=== PATIENT | female | born 1965 | race Caucasian/White ===

== ENCOUNTER 2017-08-01 07:31 | Day surgery (SDC) | payer OTHER ==
[2017-08-01] VITALS (7 sets, daily range): BP systolic 102–142; BP diastolic 52–86; PULSE 62–72; TEMP 36.3–36.6; O2SAT 93–98; Ht 157.5 cm; Wt 64.5 kg
[~2017-08-01] VITALS: Ht 157.5 cm; Wt 64.5 kg
[~2017-08-01 07:31] MED LIST: ASCO1CHW17 PO; CETICHW4 PO; FLUT230A INH; IPRASOL4 INH; LEVAAER2 INH; PRED20TA PO
[2017-08-01] MEDS ORDERED: BECL80AE6 INH (07:55)
--- NOTE | 2017-08-01 08:25 | History & Physical Bridge Note ---
H&P Re-Evaluation Bridge Note: I have examined the patient, reviewed the History & Physical and in the interval since the performance of the History & Physical I have noted the following changes of clinical significance: No changes noted
--- NOTE | 2017-08-01 08:26 | Pre Sedation Assessment ---
Pre Sedation Assessment General Date of Sedation: August 01, 2017. Vital Signs Past 12 Hours Date Time Temp Pulse Resp B/P (MAP) Pulse Ox O2 Delivery O2 Flow Rate FiO2 08/01/17 07:56 36.6 65 20 134/67 (89) 98 Room Air Pre-Sedation Airway Assessment Smoking Status: Former Smoker Mallampati Classification: Class II ASA Classification: Class II NPO Status Date of Last Intake of Fluids: July 31, 2017 Time of Last Intake of Fluids: 2300 Date of Last Intake of Solids: July 31, 2017 Time of Last Intake of Solids: 1600 Procedure Planning Contraindications for Sedation: None Current Medications Reviewed: Yes Notes The planned sedation has been discussed with the patient. Informed Consent was obtained. I have identified the patient, determined the appropriateness of sedation and have assessed the patient immediately prior to the procedure. All medicine(s) and interventions are by my order.
[2017-08-01] MEDS ORDERED: DEXTROSE 5% 1000ML 1,000 ML IV SCH (09:00)
[2017-08-01] MEDS ORDERED: NURSING VERBAL MED ORDER ONE (09:00)
[2017-08-01] MEDS ORDERED: OXYMETAZOLINE HCL 0.05% NA SPR 15 ML BTL ONE (09:07)
[2017-08-01] MEDS ORDERED: LIDOCAINE 4% INH SOLN 4 ML BTL INH ONE (09:07)
[2017-08-01] MEDS ORDERED: MIDAZOLAM HCL 5 MG/ML 1 ML VIAL IV ONE (09:22)
[2017-08-01] MEDS ORDERED: LIDOCAINE HCL 2% LOCAL 50ML VIAL INSTIL ONE (09:25)
[2017-08-01] MEDS ORDERED: FENTANYL CITRATE INJ 50 MCG/1 ML 2 ML VIAL IV ONE (09:28)
[2017-08-01] MEDS ORDERED: LEVALBUTEROL 1.25MG/3ML NEB INH ONE (09:29)
--- NOTE | 2017-08-01 09:35 | [facility] Operative Report ---
Operative Report Operative Date August 01, 2017. Pre-Operative Diagnosis Chronic Bronchitis Post-Operative Diagnosis Same Procedure(s) Performed FOB w BAL Surgeon Dr Payne Findings Chronic Mucopurulent Bronchitis Complication(s) None Disposition I attest to the content of the Intraoperative Record and any orders documented therein. Any exceptions are noted below.
[2017-08-01] MEDS ORDERED: METHYLPREDNISOLONE 125 MG VIAL IV ONE (09:36)
--- NOTE | 2017-08-01 09:36 | Post Sedation Assessment ---
Post Sedation Assessment General Date of Sedation August 01, 2017. Vital Signs: Vital Signs Past 12 Hours Date Time Temp Pulse Resp B/P (MAP) Pulse Ox O2 Delivery O2 Flow Rate FiO2 08/01/17 09:30 68 16 131/74 100 Oxymask 15 08/01/17 09:25 71 16 118/77 100 Oxymask 15 08/01/17 09:20 62 20 124/74 100 Oxymask 8 08/01/17 09:15 65 20 154/73 100 Oxymask 8 08/01/17 09:10 63 20 133/69 100 Oxymask 8 08/01/17 09:05 69 20 135/76 97 Room Air 08/01/17 07:56 36.6 65 20 134/67 (89) 98 Room Air Post Procedure Recovery Score Activity: (2) Moves 4 extremities * Respiration: (2) Deep breath/cough Circulation: (2) +/-20% PreAnes Value Consciousness: (1) Arouseable (by name) Oxygen Saturation: (1) O2 needed for >90% Post Anesthesia Score: 8 Discharge Sedation Level of Care: Fast Track Phase II Post Sedation Plan On clinical assessment, the patient appears to have tolerated the sedation without complications. Patient is recovering as anticipated. Patient will continue to be monitored by nursing and may be discharged when sedation discharge criteria are met per below protocol. Upon Completions of procedure and additional 15 minutes continue every 5 minute vital signs and the P.A.R. score; then discharge to a Phase I or Fast Track to Phase II per the following guidelines: * Discharge Patient to appropriate Phase II area if PAR is 8 or greater or return to pre- procedure baseline. The post - procedure orders will be as directed. * If PAR score is less than 8 or not return to pre-procedure baseline then patient will follow Phase I monitoring till PAR is reached for Phase II. The Phase I may be done in procedure room or may call to secure a Phase I area. * If naloxone or flumazenil are used for reversal, hold in Phase I for an additional 60 -120 minutes before discharge to Phase II. Please call the Sedation Physician to re-evaluate and complete post-note for discharge to Phase II area. Do NOT discharge from procedure sedation or Phase 1 until post- sedation evaluation note is complete by procedure /sedation MD Sedation Discharge Instructions to be given to the patient at discharge to home.
--- NOTE | 2017-08-01 09:38 | Discharge Instructions ---
Discharge Instructions Date of Service August 01, 2017. Admission Reason for Admission: Asthmatic Bronchitis, Shortness Of Breath Discharge Discharge Diagnosis / Problem: Chronic Mucopurulent Bronchitis Discharge Goals Goal(s): Therapeutic intervention Activity Recommendations Activity Limitations: resume your previous activity Lifting Limitations: none Exercise/Sports Limitations: none May Resume Sexual Activity: when tolerated Shower/Bathe: no limitations Driving or Machine Use: resume 1 day after discharge None . Instructions / Follow-Up Instructions / Follow-Up ACTIVITY RECOMMENDATIONS: * Rest today, resume normal activity tomorrow. * Do not drive today. SPECIAL CARE INSTRUCTIONS: * Call your physician if you experience any chest or shoulder pain, fever, coughing, spitting up blood (more than 2 teaspoons) or excessive shortness of breath. * Remove dressing from IV site (where needle was placed into the vein) after 2 hours. Apply a warm, moist compress to site if irritation occurs. Call physician if site becomes red or painful to touch. FOLLOW UP VISIT: * Keep any scheduled doctor appointments. Current Hospital Diet Patient's current hospital diet: Discharge Diet Recommended Diet: Regular Diet Fluid Restriction: None Procedures Procedures Performed: FOB w BAL Pending Studies Studies pending at discharge: no Medical Emergencies . Who to Call and When: Medical Emergencies: If at any time you feel your situation is an emergency, please call 911 immediately. . Non-Emergent Contact Non-Emergency issues call your: Breaker Unit Assembler Call Non-Emergent contact if: temperature is above 101 . . "Provider Documentation" section prepared by Raf Payne. .
--- NOTE | 2017-08-01 13:17 | OPERATIVE REPORT ---
DATE OF OPERATION: 08/01/2017 PROCEDURE: Fiberoptic bronchoscopy with bronchoalveolar lavage. INDICATIONS: Persistent chest congestion refractory to outpatient therapy. ANESTHESIA PREOPERATIVELY: None. ANESTHESIA DURING PROCEDURE: 100 mcg IV fentanyl, 5 mg IV Versed, 20 mL 2% Xylocaine spray above and below the cords, 4% viscous Xylocaine intranasally. PROCEDURE IN DETAIL: A fiberoptic bronchoscope was inserted into the left naris with minimal difficulty and passed to the level of the true vocal cords. The cords appear to approximate normally with phonation without evidence of lesions or paralysis. The area was anesthetized with 2% Xylocaine spray. The scope was then introduced. The left arytenoid cartilage showed a small whitish plaque that might have been consistent with Marixa. It was not biopsied. The cords were anesthetized with 2% Xylocaine spray and the scope was then introduced in the trachea and right and left tracheobronchial tree. Immediately seen in the subglottic and proximal tracheal area was a thick amount of mucus that was adherent to the tracheal wall and was lavaged until clear. The scope was then introduced into the right and left tracheobronchial tree. The temi was sharp. The right main stem bronchus also showed copious amount of mucoviscous secretion that was lavaged until clear. The right upper lobe, the apical posterior and anterior segments, bronchus intermedius, right middle lobe, and medial lateral segments and all basilar segments right lower lobe were found to be free of endobronchial lesions. Each lobar segment was lavaged until clear and mucus pitting with bronchial crypts and clefts were visible. The right lower lobe was lavaged with normal saline and the aspirate was sent for appropriate studies. The left tracheobronchial tree showed similar findings. The left upper lobe, lingular subdivision, and left lower lobe were each lavaged with normal saline and the aspirate was sent for appropriate studies. The same degree of inflammatory mucosal change was seen globally with mucus pitting and bronchial crypts and clefts visible throughout the left tracheobronchial tree. No brushings or biopsies were deemed necessary. The patient tolerated the procedure well although did complain of some mild chest tightness post-procedure, he was given 40 mg IV Solu-Medrol and a nebulizer treatment with Xopenex 1.25 mg and transferred to the medical treatment unit hemodynamically stable with no signs of respiratory compromise. We will await microbiological and cytologic examination of the bronchial washings. I attest to the content of the Intraoperative Record and any orders documented therein. Any exception s are noted below.
[2017-08-03 11:04] LABS: HERPES SIMPLEX VIRUS CULT NOT ISOLATED (NOT ISOLATED)
== END 2017-08-01 11:50 | disposition home or self-care (01) ==
LOC: C.ACU 07:31
PROVIDERS: ATTEND Internal Medicine Pulmonary Disease
DX: J42 Unspecified chronic bronchitis (principal); J45.909 Unspecified asthma, uncomplicated; R06.02 Shortness of breath; K21.9 Gastro-esophageal reflux disease without esophagitis; R91.1 Solitary pulmonary nodule; Z90.89 Acquired absence of other organs; Z90.710 Acquired absence of both cervix and uterus; Z98.51 Tubal ligation status; Z82.5 Family history of asthma and other chronic lower respiratory diseases; Z80.1 Family history of malignant neoplasm of trachea, bronchus and lung; Z82.49 Family history of ischemic heart disease and other diseases of the circulatory system; Z80.0 Family history of malignant neoplasm of digestive organs; Z87.891 Personal history of nicotine dependence; Z88.0 Allergy status to penicillin; Z88.5 Allergy status to narcotic agent; Z88.1 Allergy status to other antibiotic agents

== ENCOUNTER 2018-06-03 22:27 | Inpatient (IN) ==
[2018-06-04] MEDS ORDERED: ONDANSETRON INJ 2 MG/ML 2 ML VIAL IV PRN (03:42)
[2018-06-04] MEDS ORDERED: ALBUTEROL 0.5% NEB SOLN 2.5 MG/0.5 ML VIAL NEB PRN (03:42)
[2018-06-04] MEDS ORDERED: ACETAMINOPHEN 325 MG TAB PO PRN (03:42)
[2018-06-04] MEDS ORDERED: ENOXAPARIN INJ 40 MG/0.4 ML SYR SQ SCH (03:45)
--- NOTE | 2018-06-04 04:06 | History & Physical Report ---
Date of Service June 04, 2018 Assessment & Plan (1) COPD (chronic obstructive pulmonary disease): Patient with history of COPD/Asthma, presenting with what appears to be acute exacerbation. On arrival to OSH she was tachypneic, hypoxic, hypertensive, tachycardic, acute respiratory acidosis on ABG improved with BiPAP. Now improved. No respiratory distress. Adequate oxygenation on 2L -Admit to tele -Continuous pulse oximetry monitoring -Supplemental O2 and BiPAP PRN -Solumedrol 30mg IV TID -DuoNeb q 4 hours -Albuterol q 2 hours PRN -Doxycycline 100mg po BID -Flovent BID -Will start Pepcid for reflux symptoms Present on Admission?: Yes (2) Asthma: Plan as above. Patient given Magnesium at OSH (3) Acid reflux: Patient endorses symptoms consistent with acid reflux -Start Pepcid daily F/E/N - Heplock. Monitor electrolytes and replete as needed. Regular diet as tolerated Ppx - Lovenox for DVT ppx, Pepcid as above Code - Full Dispo - PCU History of Present Illness Chief Complaint: SOB Primary Care Provider: Alonso Barros Patient is a 52 C female with history of Asthma/COPD, MVP presenting with SOB. States that her symptoms began yesterday AM around 03:00, woke from sleep with acute SOB, cough and wheeze. She took a DuoNeb with minimal relief. Continued to take nebs q 2 hours. Her symptoms progressed throughout the day. She went to [facility] ER with the above complaints. On arrival she was found to be tachycardic at 133bpm, HTN at 204/108, RR of 40 saturating 77% on NRB. An ABG was obtained which revealed pH of 7.15, CO2 of 79. She was administered Ativan IV, Solumedrol 125mg, Enalapril, Magnesium x 2gm and epinephrine. She was placed on BiPAP. Repeat ABG with improvement to 7.3/53/288. She was transferred to [facility] as she follows with Pulmonary here. Patient presently feels much improved. Still with some SOB and chest tightness. Also with nausea and lightheadedness. She states that her Asthma/COPD is overall poorly controlled. She requires her rescue inhaler at least 2-3 times nightly on most nights. No history of prior intubations. Multiple exacerbations in the past. She states that she has had a lot of heartburn symptoms and epigastric fullness lately as well. Allergies Allergy/AdvReac Type Severity Reaction Status Date / Time Penicillins Allergy Severe ANAPHYLAXIS Verified 08/01/17 07:52 cephalexin AdvReac Unknown nausea Verified 08/01/17 07:52 morphine AdvReac Unknown nausea Verified 08/01/17 07:52 Home Medications Home Medications Medication Instructions Recorded Confirmed Type albuterol sulfate [ProAir HFA] 2 puff INHALATION BID PRN #0 aer 06/24/15 06/04/18 History ascorbic acid (vitamin C) [Vitamin 500 mg PO DAILY #0 06/24/15 06/04/18 History C] ipratropium-albuterol 3 ml INHALATION QID PRN #0 inh 06/24/15 06/04/18 History levalbuterol tartrate [Xopenex HFA] 2 puff INHALATION Q4 PRN #0 06/24/15 06/04/18 History prednisone 10 mg PO DAILY #19 06/24/15 06/04/18 History beclomethasone dipropionate [Qvar 1 puff INHALATION BID #0 08/01/17 06/04/18 History RediHaler] Past Med/Surg History Medical History Asthma COPD (chronic obstructive pulmonary disease) Lung nodules Mitral valve prolapse Surgical History S/P appendectomy S/P bronchoscopy S/P section S/P hysterectomy S/P sinus surgery S/P tonsillectomy Family History Other Lung cancer Social History Preferred Language: Luxembourger Communication Ability: Effective House Cleaner Supervisor Required: No Beliefs That Will Affect Care: None Current Living Situation: Spouse Other Information That Helps Us Care for You: No Feels Safe at Home: Yes Safety Concerns: Feels Safe At This Time Smoking Status: Never smoker Hx Substance Use: No Review of Systems All systems reviewed & are unremarkable except as noted in HPI & below +constipation at baseline +chest tighness Physical Exam Vital Signs (Past 24 Hours): Last Vital Signs Temp 36.8 C 06/04/18 02:52 Pulse 110 H 06/04/18 02:52 Resp 20 06/04/18 02:52 BP 109/68 06/04/18 02:52 Physical Exam: General: patient resting comfortably, NAD, non-toxic in appearance, AA&O x 4 Skin: warm, dry, intact, no rashes or lesions HEENT: NC/AT, PERRL, EOMI, anicteric sclera, conjunctiva without injection, external ear normal to inspection and nontender, nares patent, slighlty dry mucus membranes, dentition intact, no oropharyngeal lesions, neck supple, tra phani midline, no LAD, no thyromegaly, no JVD Heart: +S1/S2, regular, tachycardic at 110 bpm, soft HILARY at LSB, no r/g Lungs: diminished breath sounds bilaterally, no rales/rhonchi/wheezes Abd: +BS, soft, NT/ND, no masses/organomegaly/ascites Ext: warm, 2+ pulses in UE/LE bilaterally, no clubbing/cyanosis or edema Neuro: nonfocal, patient AA&O x 4, speech intact, no facial droop, moving all extremities on command with equal strength 5/5 Results & Data Laboratory Results Ordered Diagnostic Findings CXR ordered ECG Additional Comments: EKG ordered Code Status & VTE Plan Code Status Full VTE Prophylaxis Plan VTE Prophylaxis will be ordered: Yes Critical Care Time Critical Care Time: No (1) Asthma Asthma severity: unspecified severity Asthma persistence: persistent Asthma complication type: with acute exacerbation Qualified Code(s): J45.901 - Unspecified asthma with (acute) exacerbation (2) COPD (chronic obstructive pulmonary disease) COPD type: chronic bronchitis Chronic bronchitis type: unspecified Qualified Code(s): J42 - Unspecified chronic bronchitis
[2018-06-04 04:31] LABS: Basophils # (auto) 0.01 K/uL (0-0.2); Basophils % (auto) 0.1 %; Hematocrit (blood only) 38.2 % (37-47); Hemoglobin 12.7 g/dL (12.0-16.0); Immature Granulocytes # (auto) 0.06 K/uL (0.00-0.02); Immature Granulocytes % (auto) 0.4 %; Lymphocytes # (auto) 0.62 K/uL (1.2-3.4); Lymphocytes % (auto) 4.5 %; Mean Corpuscular Hgb Conc 33.2 g/dL (32-36); Mean Corpuscular Volume 94.6 fL (80-100); Mean Platelet Volume 8.9 fL (7.4-10.4); Monocytes # (auto) 0.24 K/uL (0.11-0.59); Monocytes % (auto) 1.8 %; Neutrophils # (auto) 12.77 K/uL (1.4-6.5); Neutrophils % (auto) 93.2 %; Platelet Count 268 K/uL (130-400); RDW Coefficient of Variation 13.8 % (11.5-14.5); RDW Standard Deviation 47.8 fL (36.4-46.3); Red Blood Count 4.04 M/uL (4.2-5.4)
[2018-06-04] MEDS: ALBUT/IPRATROP 3MG/0.5MG NEB 3 ML VIAL NEB SCH ×6 (04:45→23:12)
[2018-06-04 04:48] LABS: BUN Creatinine Ratio 25.4 (10-20); Calcium 8.7 mg/dl (8.5-10.1); Creatinine Clr Calc Pharmacy 80.5 ml/min; Est GFR (African American) 112.7; Est GFR (Non-African American) 97.2; Magnesium 2.4 mg/dl (1.8-2.4); Phosphorus 2.6 mg/dl (2.5-4.9)
[2018-06-04 04:57] LABS: Troponin I 1.18 ng/ml (0-0.045)
[2018-06-04] MEDS ORDERED: Nursing to Pharmacy Communication ONE (05:30)
[2018-06-04] MEDS: methylPREDNISolone 30 MG in SYRINGE 0 ML IV SCH ×3 (06:11→21:18)
--- NOTE | 2018-06-04 09:27 | XRay Report ---
XR chest 2V routine CLINICAL HISTORY: COPD. Shortness of breath. COMPARISON STUDY: No previous studies for comparison. FINDINGS: A subtle 8 mm opacity visualized in the left lung base on the PA film is not confirmed the lateral view. On a statistical basis this represents a summation. The heart is normal in size. There is no failure. There is no focal pulmonary consolidation. There are no pleural effusions.[ IMPRESSION: 1. No evidence of failure. No evidence of focal pulmonary consolidation 2. Nonspecific 8 mm opacity at the left lung base, likely representing a summation. A follow-up CT sc an or 3 month follow-up chest x-ray should be considered. Electronically signed by: Cody Mahan M.D. 06/04/2018 9:25 AM
[2018-06-04] MEDS: ASPIRIN 81 MG ECTAB PO SCH (09:38)
[2018-06-04] MEDS: FLUTICASONE HFA 220 MCG INHALER INH SCH ×2 (09:38→21:20)
[2018-06-04] MEDS: DOXYCYCLINE HYCLATE 100 MG CAP PO SCH ×2 (09:39→21:19)
[2018-06-04] MEDS: FAMOTIDINE 20 MG TAB PO SCH (09:40)
--- NOTE | 2018-06-04 13:31 | Hospitalist Progress Note ---
Date of Service June 04, 2018 Assessment & Plan (1) COPD (chronic obstructive pulmonary disease): (2) Asthma: (3) Acid reflux: (4) Elevated troponin: 52-year-old white female with history of COPD admitted because of acute respiratory distress possible from COPD exacerbation acute respiratory distress possible from COPD exacerbation COPD exac history of COPD/Asthma, Required BiPAP on admission Improved, Continue supplemental O2 and BiPAP PRN, Solumedrol 30mg IV TID, DuoNeb q 4 hour s, Albuterol q 2 hours PRN, Doxycycline 100mg po BID Patient follow-up with Dr. Payne, request Dr. Allen to see I agreed Obvious elevated troponin with no chest pain no EKG changes, likely demanding ischemia cardiac strain, however want to rule out acute PE, is checking d-dimer, will check a chest CT with contrast if d-dimer positive Possible GERD with acid reflux: Continue Pepcid Lovenox for DVT ppx, Pepcid as above Code - Full Subjective Generally feeling better, occasional cough, however feeling more difficulty breathing when up and walk to the restroom Denies fever chills, denies hemoptysis, denies cough pain No nausea vomiting abdominal pain diarrhea constipation Denies dysuria urgency frequency No facial droop or slurry speech or local weakness Physical Exam Vital Signs (Past 24 Hours): Last Vital Signs Temp 36.4 C L 06/04/18 11:46 Pulse 92 H 06/04/18 11:46 Resp 22 06/04/18 11:46 BP 106/64 06/04/18 11:46 Pulse Ox 95 06/04/18 11:46 Physical Exam: General: patient resting comfortably, NAD, non-toxic in appearance, AA&O x 4, speak for sentence and conversational Skin: warm, dry, intact, no rashes or lesions HEENT: NC/AT, PERRL, EOMI, anicteric sclera, conjunctiva without injection, external ear normal to inspection and nontender, nares patent, slighlty dry mucus membranes, dentition intact, no oropharyngeal lesions, neck supple, trachea midline, no LAD, no thyromegaly, no JVD Heart: +S1/S2, regular, soft HILARY at LSB, no r/g Lungs: diminished breath sounds bilaterally, occasional wheezing, bilateral lower lung significant decreased airway movement Abd: +BS, soft, NT/ND, no masses/organomegaly/ascites Ext: warm, 2+ pulses in UE/LE bilaterally, no clubbing/cyanosis or edema Neuro: nonfocal, patient AA&O x 4, speech intact, no facial droop, moving all extremities on command with equal strength 5/5 Results & Data Laboratory Results Laboratory Results - last 24 hr 06/04/18 06/04/18 06/04/18 03:59 03:59 11:07 WBC 13.70 H RBC 4.04 L Hgb 12.7 Hct 38.2 MCV 94.6 MCH 31.4 MCHC 33.2 RDW Std Deviation 47.8 H RDW Coeff of Lizeth 13.8 Plt Count 268 MPV 8.9 Immature Gran % (Auto) 0.4 Neut % (Auto) 93.2 Lymph % (Auto) 4.5 Dougherty % (Auto) 1.8 Eos % (Auto) 0.0 Baso % (Auto) 0.1 Immature Gran # (Auto) 0.06 H Neut # (Auto) 12.77 H Lymph # (Auto) 0.62 L Dougherty # (Auto) 0.24 Eos # (Auto) 0.00 Baso # (Auto) 0.01 Sodium 139 Potassium 4.0 Chloride 107 Carbon Dioxide 25 Anion Gap 7.0 BUN 18 Creatinine 0.71 Est Cr Clr Drug Dosing 80.5 Est GFR ( Amer) 112.7 Est GFR (Non-Af Amer) 97.2 BUN/Creatinine Ratio 25.4 H Glucose 124 H Calcium 8.7 Phosphorus 2.6 Magnesium 2.4 Troponin I 1.180 H* 1.120 H* NT-Pro-B Natriuret Pep 261 (1) COPD (chronic obstructive pulmonary disease) COPD type: chronic bronchitis Chronic bronchitis type: unspecified Qualified Code(s): J42 - Unspecified chronic bronchitis (2) Asthma Asthma severity: unspecified severity Asthma persistence: persistent Asthma complication type: with acute exacerbation Qualified Code(s): J45.901 - Unspecified asthma with (acute) exacerbation
[2018-06-04 13:49] LABS: D Dimer 690 ug/L FEU (0-500)
[2018-06-04] MEDS ORDERED: OPTIRAY 320 125ml IV PRN (14:37)
--- NOTE | 2018-06-04 14:51 | CT Scan Report ---
CT ANGIOGRAM OF THE CHEST CLINICAL HISTORY: Shortness of breath. Suspected pulmonary embolism. COMPARISON STUDY: August 2012 TECHNIQUE: Following the IV administration of 95 mL of [id number]-320, CT angiogram of the thorax was pe rformed from the thoracic inlet to the lung bases utilizing the pulmonary embolus protocol. Images ar e reviewed in the axial, sagittal, and coronal planes. IV contrast was administered without complicat ion. MIP imaging was performed. A dose lowering technique was utilized adhering to the principles of ALARA. CT DOSE: There are persistent hypodense hepatic lesions, statistically representing cysts. FINDINGS: No pathologically enlarged axillary mediastinal or hilar lymph nodes were visualized. There was no evidence of thoracic aortic dilatation. There is a small right lower lobe pulmonary artery filling defect, indicative of a subsegmental pulmo nary artery embolus. Several additional tiny filling defects are visualized. No pleural effusions are visualized. There are 2 pleural-based calcifications within the left lower l obe. There is no focal pulmonary consolidation. There was no evidence of focal pulmonary consolidation. IMPRESSION: Acute subsegmental right lower lobe pulmonary artery embolism Electronically signed by: Cody Mahan M.D. 06/04/2018 2:49 PM
[2018-06-04 16:18] LABS: Immunoglobulin A 93.6 mg/dl (70-400)
[2018-06-04] MEDS ORDERED: HEPARIN IV BOLUS 4,000 UNITS in SYRINGE 0 ML IV ONE (16:30)
[2018-06-04 16:51] LABS: Partial Thromboplastin Ratio 0.9; Partial Thromboplastin Time 25.1 Seconds (21.0-31.0)
[2018-06-04] MEDS: HEPARIN STANDARD DEXTROSE 25,000 UNITS/500 ML IV SCH (17:27)
[2018-06-04] MEDS ORDERED: BISACODYL 5 MG TABEC PO PRN (20:09)
[2018-06-04] MEDS ORDERED: POLYETHYLENE (MIRALAX) 17 GM PACK PO PRN (20:09)
[2018-06-04] MEDS: LACTOBACILLUS ACIDOPHILUS (FLORANEX) TAB PO SCH (21:18)
[2018-06-04] MEDS: CETIRIZINE HCL 10 MG TABLET PO SCH (21:18)
[2018-06-04] MEDS ORDERED: COUGH DROP (SUGAR FREE) LOZ 24 LOZ/1 BOX BUCCAL ONE (21:27)
[2018-06-04] MEDS ORDERED: SODIUM CHLORIDE 0.65% NA SOLN 45 ML (OCEAN) ONE (21:28)
[2018-06-05 00:30] LABS: Partial Thromboplastin Ratio 1.8
[2018-06-05 00:38] LABS: Partial Thromboplastin Time 49.9 Seconds (21.0-31.0)
--- NOTE | 2018-06-05 02:37 | Consultation Report ---
DATE OF CONSULTATION: 06/04/2018 REASON FOR CONSULTATION: Pulmonary evaluation/COPD/asthma. HISTORY OF PRESENT ILLNESS: A 52-year-old white female well known to me with a history of asthma/COPD and is followed regularly by ESTEFANÍA Marino with our [facility] at the [facility] and by Dr. Alonso Barros her primary care physician. I have seen her in the past as well and had performed bronchoscopy x2 for bronchoalveolar lavage in the past. The patient has not been doing well for the past several weeks and was treated for recurrent bout of bronchitis recently but states she never truly got over her symptoms and "she has used her wood burner for the first time this spring and wonders whether that contributed to her symptoms." She was awoken from sleep at 3 a.m. 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 She was taking a nebulizer every 2 hours. She went to the [facility] ER and states she was unresponsive and has no memory for the events for about 4 hours. She was found to be tachycardic with a rate about 133, hypertensive and markedly desaturated at 77% and was placed on 100% nonrebreather and eventually BiPAP. ABG revealed a pH of 7.15, pCO2 of 79. She was given IV Ativan, Solu-Medrol, enalapril, magnesium IV x2 grams and epinephrine and placed on BiPAP. Her numbers improved to pH 7.3, pCO2 of 53 and a pO2 of 288. She was transferred here for further evaluation and therapy. The symptoms of chest tightness and dyspnea improved. She was nauseated and lightheaded. She has not required intubation and mechanical ventilator assistance in the past. She has had a full allergy evaluation with Dr. Brink many years ago, was not felt to be a candidate for immunotherapy. Since that time, she has replaced her rugs and had them removed and has hardwood floors with area rugs. She does have 2 dogs at home. No cats and the environment can be mildly celsa. No areas of mildew or mold. Review of [employer] charting, the patient was last seen by Carlito Lau in 07/2017. He comments about a bronchoscopy done previous to that visit where she obtained some relief of symptoms. Bronchial washings grew out Marixa and that was felt not to be a pathogen. Bronchial washings grew out normal sanjiv. In 06/2015, once again normal sanjiv was cultured. No true pathogens were identified. CT angiogram going back to 2012 showed no evidence of pulmonary thromboembolic disease. A 1.7 cm lymph node was seen in the right suprahilar region, otherwise there were no suspicious nodules. She is status post appendectomy, , hysterectomy and sinus surgery along with tonsillectomy. ALLERGIES: PENICILLIN, CEPHALEXIN, AND MORPHINE. Chest x-ray on 06/04/2018 showed no evidence of failure. An 8 mm opacity left lung base may be a summation shadow was seen. EKG showed normal sinus rhythm with a heart rate of 95 without acute changes. White count today is 13,000, H and H 12 and 38. No significant peripheral eosinophilia. D-dimer was 690, BUN 25, patient has been on a ProAir inhaler, QVAR 1 puff b.i.d. She has had a nebulizer with DuoNeb solution every 4 hours as needed and also on a Xopenex HFA as needed. She is on 10 mg daily of prednisone. PFTs in 2012 revealed an FEV1/FVC ratio of 67% without a response to bronchodilator shown, significant air trapping was noted and normal diffusion capacity. Review of Carlito Lau's notation shows an infrequent office visit. She showed exacerbation and required IM Solu-Medrol in the office. In the last note I have from Dr. Brink from [facility], was patient was seen on 03/23/2012 and continued on Advair Diskus inhaler 500/50 one puff b.i.d. which she is currently on as well and doxycycline for a sinus infection. Several lab studies include alpha 1 antitrypsin, Aspergillus titers and checking for humeral antibody response were ordered. I do not have the results. She did smoke 3 packs a day for 18 years or 54 pack year smoking history, having quit in 1993. For details of past medical history, medications, refer to current and past record. PHYSICAL EXAMINATION: GENERAL: Reveals a well-developed, well-nourished white female appearing stable currently. VITAL SIGNS: Blood pressure 106/64, pulse 101 and regular, respiratory rate 18, temperature 36.4, O2 sat 97% on 3 liters. SKIN: Without lesion. HEENT: Atraumatic, normocephalic. PERRLA. LUNGS: Distant to P and A. No audible wheezes. CARDIAC: Regular rhythm. I do not appreciate a gallop. ABDOMEN: Soft, protuberant. EXTREMITIES: No pedal edema, clubbing or cyanosis. Negative Homans sign. NEUROLOGIC: No lateralizing signs. Chest x-ray shows no acute infiltrate. LABORATORY DATA: White count 13,000. No peripheral eosinophilia. EKG shows no acute changes. OVERALL ASSESSMENT: A 52-year-old with a combination of chronic obstructive pulmonary disease and asthma, became acutely short of breath, suspect from an acute asthmatic attack perhaps aggravated by the wood burner or an upper respiratory infection or other irritant/allergens that has been poorly recognized. What is clear is, patient became subacutely symptomatic and then acutely in severe respiratory distress. ABGs revealed an acute respiratory acidosis that was life threatening with a pH of 7.15. I need to review her records. I do believe she needs an allergy and immunology evaluation as an outpatient with Dr. Cee and will make those arrangements. I have advised both she and the family that her presentation was life threatening and that admittedly she cannot let things go as long and as far as they did. The ABGs and its low pH and the fact that she had 4 hours of severe hypoxemia could very well have led to an acute respiratory arrest. I believe we need to relook at potential for an allergenic cause as one or more of her triggers and look to see if she may be a candidate as well for targeted therapy.
--- NOTE | 2018-06-05 03:23 | Consultation Report ---
DATE OF CONSULTATION: 06/04/2018 REQUESTING: Jose R Schuster MD WOODENWARE ASSEMBLER: Sunday Sher D.O., [facility]. REASON FOR CONSULTATION: Elevated troponin and chest discomfort. Dear Mariely: Thank you for requesting cardiology consultation on the patient with regards to her chest discomfort. She was admitted secondary to tachypnea, tachycardia, significant hypertension with a systolic blood pressure greater than 200 and significant hypoxemia. She carries a history of COPD and asthma. She did smoke 2 packs a day for over 10 years but has not smoked in an extended period of time. She notes her symptoms of dyspnea have become more progressive in the last year. Her daughter and family who are with her note she used to go months without an exacerbation, now she is having an exacerbation every week or so. She had a significant decline in her exercise capacity. She is having difficulty climbing stairs, noting that she is stopping senior care. She also describes difficulty swallowing with central chest discomfort. She notes that much of the time it does occur with activity and then gets better. Occasionally, she will have some discomfort to the back of her neck. Occasionally she felt pins and needles in her left arm, but denies any heaviness in her left arm. She notes for the most part she has been staying inside as she has been progressively more short of breath. She denies any presyncope, syncope, lower extremity edema. She has been on chronic steroids. Her initial vitals were tachycardia at 133 beats per minute with a blood pressure of 204/108 with a respiratory rate of 40 and a sat of 77% on a nonrebreather with a pH of 7.15 and a pCO2 of 79. The rest of review of system otherwise negative. PAST MEDICAL HISTORY: 1. Asthma. 2. COPD. 3. Lung nodules. 4. History of mitral valve prolapse diagnosed when she was with her 23-year-old daughter. 5. . 6. Hysterectomy. 7. Appendectomy. FAMILY HISTORY: Positive for lung cancer in both parents. She does note that her father was diagnosed with heart disease at a similar age to her. SOCIAL HISTORY: She smoked 2 packs per day for more than 10 years, stopping at the age of 28. She is . She denies any significant alcohol. ALLERGIES: PENICILLIN, CEPHALEXIN AND MORPHINE. MEDICATIONS: Reviewed in electronic medical record. PHYSICAL EXAMINATION: GENERAL: She is awake, alert, oriented x3. She is in no acute distress. VITAL SIGNS: Her heart rate is 101, blood pressure 106/64, respirations 18, her temperature is 36.4, her sats 97% on 3 liters. HEENT: 2+ carotid upstrokes, No carotid bruit. Jugular venous pressure appeared normal. Sclerae are anicteric. Her hearing is normal. LUNGS: Clear to auscultation bilaterally. No rales, rhonchi or wheezing. With forced expiration there is no wheezing. HEART: Regular rate and rhythm. No appreciable murmurs, rubs or gallops. ABDOMEN: Soft, nontender and nondistended. Positive bowel sounds. EXTREMITIES: No clubbing, cyanosis. PSYCHIATRIC: Affect appeared appropriate. NEUROLOGIC: Grossly nonfocal. DIAGNOSTIC STUDIES: First troponin 1.18. The second is 1.12. The third is pending. ProBNP is 261. Her BMP was normal. Her D-dimer was 690. Her white count 13.7, hemoglobin 12.7, platelet count of 268. Chest x-ray, no evidence of congestive heart failure or pulmonary consolidation. EKG sinus rhythm at 95 beats per minute, nonspecific ST changes. IMPRESSION: 1. Increasing shortness of breath and dyspnea on exertion and a sense of chest fullness. 2. Occasional symptoms of gastroesophageal reflux disease. 3. Previous significant tobacco history. 4. She describes an LDL of near 200 with a total cholesterol close to 300. 5. Significant decline in her exercise capacity. 6. Mild troponin elevation, possible demand ischemia versus coronary ischemia. At this point, I recommend an echocardiogram to assess for any regional wall motion abnormalities. What is interesting is she is not excessively wheezing and given her family history of heart disease at a young age and what sounds like a significantly elevated LDL and a previous tobacco history it is possible she has obstructive coronary disease as a cause for her symptoms. We will check a fasting lipid profile. We will trend her troponin. She will have an echo. If we see a wall motion abnormality on her transthoracic echocardiogram, then I would proceed with cardiac catheterization, but if we see wall motion abnormality on a transthoracic echo or her DSE is abnormal, we would proceed with cardiac catheterization. Additionally, the echo allows to rule out pulmonary hypertension from underlying lung disease. All this was discussed with the patient and her family. Thank you very much for allowing us to participate in her care. Addendum: CT Chest with possible Pulmonary Embolus, will defer stress testing for now. MTDD
[2018-06-05] MEDS: ALBUT/IPRATROP 3MG/0.5MG NEB 3 ML VIAL NEB SCH ×6 (03:30→23:08)
[2018-06-05] MEDS: methylPREDNISolone 30 MG in SYRINGE 0 ML IV SCH ×3 (05:39→20:19)
[2018-06-05 06:38] LABS: BUN Creatinine Ratio 19.7 (10-20); Calcium 8.7 mg/dl (8.5-10.1); Est GFR (African American) 107.2; Est GFR (Non-African American) 92.5; Magnesium 2.3 mg/dl (1.8-2.4); Potassium 4.3 mmol/L (3.5-5.1)
[2018-06-05 07:24] LABS: Partial Thromboplastin Ratio 1.8
[2018-06-05 07:29] LABS: Partial Thromboplastin Time 47.8 Seconds (21.0-31.0)
[2018-06-05] MEDS: LACTOBACILLUS ACIDOPHILUS (FLORANEX) TAB PO SCH ×3 (08:29→18:07)
[2018-06-05] MEDS: ASPIRIN 81 MG ECTAB PO SCH (08:29)
[2018-06-05] MEDS: DOXYCYCLINE HYCLATE 100 MG CAP PO SCH ×2 (08:29→20:20)
[2018-06-05] MEDS: FAMOTIDINE 20 MG TAB PO SCH (08:29)
[2018-06-05] MEDS: FLUTICASONE HFA 220 MCG INHALER INH SCH ×2 (08:30→20:26)
[2018-06-05] MEDS: CETIRIZINE HCL 10 MG TABLET PO SCH (08:31)
--- NOTE | 2018-06-05 08:32 | Cardiology Progress Note ---
Date of Service June 05, 2018 She is feeling much better today. She looks significantly better. She denies any chest pain or chest pressure. She notes she can take a deep breath without feeling short of breath. Her color has improved. She denies any palpitations lightheadedness or dizziness she is not short of rest. She denies any lower extremity edema. She thinks her mom may have had blood clots but she is unsure. She denies a cough fevers chills or sweats. Physical Exam Vital Signs (Past 24 Hours): Last Vital Signs Temp 36.4 C L 06/05/18 07:43 Pulse 87 06/05/18 07:43 Resp 18 06/05/18 07:43 BP 127/67 06/05/18 07:43 Pulse Ox 95 06/05/18 07:43 PHYSICAL EXAMINATION: GENERAL: She is awake, alert, oriented x3. She is in no acute distress. VITAL SIGNS: Her heart rate is 101, blood pressure 106/64, respirations 18, her temperature is 36.4, her sats 97% on 3 liters. HEENT: 2+ carotid upstrokes, no evidence of carotid bruit. Jugular venous pressure appeared normal. Sclerae are anicteric. Her hearing is normal. LUNGS: Clear to auscultation bilaterally. No rales, rhonchi or wheezing. With forced expiration there is no wheezing. HEART: Regular rate and rhythm. No appreciable murmurs, rubs or gallops. ABDOMEN: Soft, nontender and nondistended. Positive bowel sounds. EXTREMITIES: No clubbing, cyanosis. PSYCHIATRIC: Affect appeared appropriate. IMPRESSION: 1. Increasing shortness of breath and dyspnea on exertion and a sense of chest fullness. 2. Occasional symptoms of gastroesophageal reflux disease. 3. Previous significant tobacco history. 4. She describes an LDL of near 200 with a total cholesterol close to 300. 5. Significant decline in her exercise capacity. 6. Right lower lobe pulmonary embolism 7. Basal to mid inferior, basal inferior septum, and basal inferior lateral hypokinesis to akinesis with preserved left ventricular systolic function 8. No evidence of mitral valve prolapse 9. Normal RV size and function with mild pulmonary hypertension 10. Mild troponin elevation, possible demand ischemia versus coronary ischemia. She is been placed on a heparin drip for her pulmonary emboli. She looks significantly better today. From a cardiac standpoint given the fact she has a pulmonary embolism I would treat her presumed coronary artery disease with medicine. Her troponin is trending down. She does have a wall motion abnormality that is consistent with a prior RCA infarct. I would start her on aspirin 81 mg daily in addition to her NOAC. I would start Crestor 10 mg daily as her HDL is very high but based on her presumed coronary disease she should be on statin therapy. Her heart rate and blood pressure well controlled. Depending how she does down the road we will decide on a cardiac catheterization in the future especially if she continues to have shortness of breath with activity that is not thought to be related to her pulmonary embolism or heart or asthma.
--- NOTE | 2018-06-05 15:20 | Ultrasound Report ---
ULTRASOUND BILATERAL LOWER EXTREMITY VENOUS CLINICAL HISTORY: Lower extremity edema. COMPARISON STUDY: No priors. TECHNIQUE: Real-time, grayscale, and color Doppler sonography of the deep veins of the right and left lower extremity was performed from the inguinal crease to the calf. Compression and augmentation wer e utilized. FINDINGS: There is no sonographic evidence of deep venous thrombosis identified in the right or left lower extremity. The common femoral, superficial femoral, and popliteal veins are patent and normally compressible bilaterally. The greater saphenous vein and the profunda femoris vein at the junction w ith the common femoral vein are clear in both legs. The visualized calf veins are patent bilaterally. IMPRESSION: There is no sonographic evidence of deep venous thrombosis identified in the right or lef t lower extremity. Electronically signed by: Lorenzo Crowder M.D. 06/05/2018 3:19 PM
--- NOTE | 2018-06-05 15:56 | Hospitalist Progress Note ---
Date of Service June 05, 2018 Assessment & Plan (1) Pulmonary embolism: acute PE causing chest pain and dyspnea no evidence of DVT on doppler today hypercoagulable work up sent out, will be back as outpatient continue heparin drip until this evening start Xarelto 15mg BID for 21 days then 20mg daily there after likely home tomorrow (2) COPD (chronic obstructive pulmonary disease): Patient with history of COPD/Asthma, presenting with what appears to be acute exacerbation. On arrival to OSH she was tachypneic, hypoxic, hypertensive, tachycardic, acute respiratory acidosis on ABG improved with BiPAP. much improved, no wheezing today, breathing easier change Solu Medrol to Prednisone starting tomorrow AM continue nebulizers continue Doxycycline likely home tomorrow, not on oxygen (3) Asthma: Plan as above (4) Acid reflux: Patient endorses symptoms consistent with acid reflux - continue Pepcid (5) Elevated troponin: due to PE, no further testing Subjective patient feeling a lot better, breathing easier, no chest pain reviewed CTA chest, shows right sided PE reviewed echo, normal EF, small wall motion abnormality suggesting prior RCA infarct discussed plan with patient and her brother at the bedside discussed with Dr. Sher, appreciate his input checked cost of Xarelto, can get $10 copay card Review of Systems All systems reviewed & are unremarkable except as noted in HPI & below Respiratory: + cough, + dyspnea and + dyspnea on exertion Cardiovascular: no chest pain Physical Exam Vital Signs (Past 24 Hours): Last Vital Signs Temp 36.4 C L 06/05/18 15:49 Pulse 94 H 06/05/18 15:49 Resp 20 06/05/18 15:49 BP 132/75 06/05/18 15:49 Pulse Ox 96 06/05/18 15:49 Constitutional: WD/WN, vitals as above Eyes: PERRL, conjunctivae normal, anicteric sclerae ENMT: external ear and nose normal, oropharynx normal Neck: trachea midline, no thyromegaly Respiratory: normal respiratory effort, lungs clear to auscultation Cardiovascular: RRR, no murmur, no edema Gastrointestinal (Abdomen): normal bowel sounds, soft, nontender, no hepatosplenomegaly Musculoskeletal: no cyanosis or clubbing, extremities motor strength 5/5 Skin: no rashes, warm and dry Neurologic: patellar DTR's 2+ bilat, sensation intact and PERRL, EOMI, accommodation nl, no face palsy, no dysarthria Psychiatric: A+Ox3, euthymic affect Lymphatic: no cervical or axillary lymphadenopathy Results & Data Laboratory Results Laboratory Results - last 24 hr 06/04/18 06/04/18 06/04/18 13:08 15:32 23:24 APTT 25.1 49.9 H* PTT Ratio 0.9 1.8 Sodium Potassium Chloride Carbon Dioxide Anion Gap BUN Creatinine Est Cr Clr Drug Dosing Est GFR ( Amer) Est GFR (Non-Af Amer) BUN/Creatinine Ratio Glucose Calcium Magnesium Triglycerides 216 H Cholesterol 238 H LDL Cholesterol, Calc 109 VLDL Cholesterol, Calc 43 HDL Cholesterol 86 Cholesterol/HDL Ratio 3 IgG 895.0 IgA 93.6 IgM 102.0 Beta-(1,3)-D-Glucan B-(1,3)-D-Glucan Intrp 06/04/18 06/05/18 06/05/18 23:30 05:27 06:50 APTT 47.8 H* PTT Ratio 1.8 Sodium 140 Potassium 4.3 Chloride 106 Carbon Dioxide 25 Anion Gap 9.0 BUN 15 Creatinine 0.74 Est Cr Clr Drug Dosing 77.0 Est GFR ( Amer) 107.2 Est GFR (Non-Af Amer) 92.5 BUN/Creatinine Ratio 19.7 Glucose 134 H Calcium 8.7 Magnesium 2.3 Triglycerides Cholesterol LDL Cholesterol, Calc VLDL Cholesterol, Calc HDL Cholesterol Cholesterol/HDL Ratio IgG IgA IgM Beta-(1,3)-D-Glucan Cancelled B-(1,3)-D-Glucan Intrp Cancelled Medications Administered Current Inpatient Medications Acetaminophen (Tylenol) 650 mg PO Q4H PRN PRN Reason: Pain or Fever Stop: 07/04/18 03:41 Albuterol (Duoneb) 3 ml NEB Q4R [place] Stop: 07/04/18 03:59 Last Admin: 06/05/18 15:20 Dose: 3 ml Documented by: Albuterol (Ventolin 0.5% 2.5mg/0.5ml) 2.5 mg NEB Q2H PRN PRN Reason: SOB/Wheeze Stop: 07/04/18 03:41 Aspirin (Ecotrin Ectab) 81 mg PO DAILY [place] Stop: 07/04/18 08:59 Last Admin: 06/05/18 08:29 Dose: 81 mg Documented by: Bisacodyl (Dulcolax) 5 mg PO BID PRN PRN Reason: Constipation Stop: 07/04/18 20:08 Cetirizine HCl (Zyrtec) 10 mg PO QAM [facility] Stop: 07/04/18 20:09 Last Admin: 06/05/18 08:31 Dose: 10 mg Documented by: Doxycycline Hyclate (Vibramycin) 100 mg PO BID [facility] Stop: 06/11/18 08:59 Last Admin: 06/05/18 08:29 Dose: 100 mg Documented by: Famotidine (Pepcid) 20 mg PO QAM [facility] Stop: 07/04/18 08:59 Last Admin: 06/05/18 08:29 Dose: 20 mg Documented by: Fluticasone Propionate (Flovent Hfa 220mcg) 2 puffs INH BID [facility] Stop: 07/04/18 08:59 Last Admin: 06/05/18 08:30 Dose: 2 puffs Documented by: Methylprednisolone 30 mg/ (Syringe) 0.48 mls @ 1.5 mls/min IV Q8H [facility] Stop: 06/05/18 23:59 Last Admin: 06/05/18 15:26 Dose: 1.5 mls/min Documented by: Heparin Sodium/Dextrose (Heparin Sodium/Dextrose) 25,000 units in 500 mls @ 20 mls/hr IV .Q24H [facility]; Protocol Stop: 06/05/18 20:59 Last Titration: 06/05/18 06:50 Dose: 1,000 units/hr, 20 mls/hr Documented by: Ioversol (Optiray 320 125ml) 95 ml IV ONCE PRN PRN Reason: Interaction Checking Stop: 06/08/18 14:36 Last Admin: 06/04/18 14:38 Dose: 95 ml Documented by: Lactobacillus Acidophilus (Floranex) 4 tab PO TIDM [facility] Stop: 07/05/18 07:59 Last Admin: 06/05/18 12:16 Dose: 4 tab Documented by: Ondansetron HCl (Zofran) 4 mg IV Q6H PRN PRN Reason: Nausea Stop: 07/04/18 03:41 Polyethylene Glycol (Miralax Powder Packet) 17 gm PO DAILY PRN PRN Reason: Constipation Stop: 07/04/18 20:08 Prednisone (Prednisone) 40 mg PO QAM [facility] Stop: 07/06/18 08:59 Rivaroxaban (Xarelto) 15 mg PO BID [facility] Stop: 06/26/18 09:01 Rosuvastatin Calcium (Crestor) 10 mg PO QAM [facility] Stop: 07/06/18 08:59 (1) COPD (chronic obstructive pulmonary disease) COPD type: chronic bronchitis Chronic bronchitis type: unspecified Qualified Code(s): J42 - Unspecified chronic bronchitis (2) Asthma Asthma severity: unspecified severity Asthma persistence: persistent Asthma complication type: with acute exacerbation Qualified Code(s): J45.901 - Unspecified asthma with (acute) exacerbation
--- NOTE | 2018-06-05 17:37 | Pulmonology Progress Note ---
Date of Service June 05, 2018 Assessment & Plan (1) Pulmonary embolism: Impression: 1. Asthma, improved on the current treatment. 2. I do not appreciate PE on the CAT scan. Radiology report is appreciated however the patient is asymptomatic from that point, this is probably an incidental finding although I reviewed the CAT scan several times without seeing the same small defect noted in the radiology report. Plan: 1. Agree with hypercoagulable state workup. 2. Based on radiology report, I would treat the patient with Eliquis 5 mg p.o. twice daily, if she does have factor deficiency, she will need anticoagulation for life. 3. Reviewed the CAT scan again with radiology. The clinical picture is disproportionate to the findings on the CT itself. 4. Follow with Dr. Payne as an outpatient. Thank you, will follow as needed. Subjective The patient wheezing has subsided, denies any chest pain, no shortness of breath at the moment, she has been treated with my colleague Dr. Payne as an outpatient for asthma. The patient has not have industrial exposure in the past, she does have 2 dogs but no cats, no birds in the house. She is known to have history of asthma. She has been treated for the past 8 years. Physical Exam Vital Signs (Past 24 Hours): Last Vital Signs Temp 36.4 C L 06/05/18 15:49 Pulse 94 H 06/05/18 15:49 Resp 20 06/05/18 15:49 BP 132/75 06/05/18 15:49 Pulse Ox 96 06/05/18 15:49 Physical Exam: Vital signs are stable, 96% on room air, S1-S2 regular rate and rhythm, lungs are clear, abdomen is benign, no edema. Results & Data Laboratory Results Labs were reviewed, pending hypercoagulable state workup. Diagnostic Findings CAT scan of the chest which I reviewed personally, I do not appreciate filling defect.
[2018-06-05] MEDS: HEPARIN STANDARD DEXTROSE 25,000 UNITS/500 ML IV SCH (18:26)
[2018-06-05] MEDS: RIVAROXABAN 15 MG TAB PO SCH (20:19)
[2018-06-06] MEDS: ALBUT/IPRATROP 3MG/0.5MG NEB 3 ML VIAL NEB SCH ×3 (05:40→10:48)
[2018-06-06 06:01] LABS: Partial Thromboplastin Time 26.5 Seconds (21.0-31.0)
[2018-06-06] MEDS: LACTOBACILLUS ACIDOPHILUS (FLORANEX) TAB PO SCH (08:20)
[2018-06-06] MEDS: DOXYCYCLINE HYCLATE 100 MG CAP PO SCH (08:21)
[2018-06-06] MEDS: FAMOTIDINE 20 MG TAB PO SCH (08:21)
[2018-06-06] MEDS: ASPIRIN 81 MG ECTAB PO SCH (08:21)
[2018-06-06] MEDS: RIVAROXABAN 15 MG TAB PO SCH (08:21)
[2018-06-06] MEDS: CETIRIZINE HCL 10 MG TABLET PO SCH (08:21)
[2018-06-06] MEDS: FLUTICASONE HFA 220 MCG INHALER INH SCH (08:22)
[2018-06-06] MEDS ORDERED: ROSUVASTATIN CALCIUM 10 MG TAB PO SCH (09:00)
[2018-06-06] MEDS ORDERED: predniSONE 20 MG TAB PO SCH (09:00)
--- NOTE | 2018-06-06 09:53 | Discharge Summary ---
Date of Service June 06, 2018 Admission HPI Per Admitting Provider Patient is a 52 C female with history of Asthma/COPD, MVP presenting with SOB. States that her symptoms began yesterday AM around 03:00, woke from sleep with acute SOB, cough and wheeze. She took a DuoNeb with minimal relief. Continued to take nebs q 2 hours. Her symptoms progressed throughout the day. She went to [facility] ER with the above complaints. On arrival she was found to be tachycardic at 133bpm, HTN at 204/108, RR of 40 saturating 77% on NRB. An ABG was obtained which revealed pH of 7.15, CO2 of 79. She was administered Ativan IV, Solumedrol 125mg, Enalapril, Magnesium x 2gm and epinephrine. She was placed on BiPAP. Repeat ABG with improvement to 7.3/53/288. She was transferred to [facility] as she follows with Pulmonary here. Patient presently feels much improved. Still with some SOB and chest tightness. Also with nausea and lightheadedness. She states that her Asthma/COPD is overall poorly controlled. She requires her rescue inhaler at least 2-3 times nightly on most nights. No history of prior intubations. Multiple exacerbations in the past. She states that she has had a lot of heartburn symptoms and epigastric fullness lately as well. Admission Exam Per Admitting Provider General: patient resting comfortably, NAD, non-toxic in appearance, AA&O x 4 Skin: warm, dry, intact, no rashes or lesions HEENT: NC/AT, PERRL, EOMI, anicteric sclera, conjunctiva without injection, external ear normal to inspection and nontender, nares patent, slighlty dry mucus membranes, dentition intact, no oropharyngeal lesions, neck supple, trachea midline, no LAD, no thyromegaly, no JVD Heart: +S1/S2, regular, tachycardic at 110 bpm, soft HILARY at LSB, no r/g Lungs: diminished breath sounds bilaterally, no rales/rhonchi/wheezes Abd: +BS, soft, NT/ND, no masses/organomegaly/ascites Ext: warm, 2+ pulses in UE/LE bilaterally, no clubbing/cyanosis or edema Neuro: nonfocal, patient AA&O x 4, speech intact, no facial droop, moving all extremities on command with equal strength 5/5 Principal Diagnosis Pulmonary embolism Discharge Exam Constitutional WD/WN, vitals as above Eyes PERRL, conjunctivae normal, anicteric sclerae ENMT external ear and nose normal, oropharynx normal Neck trachea midline, no thyromegaly Respiratory normal respiratory effort, lungs clear to auscultation Cardiovascular RRR, no murmur, no edema Gastrointestinal (Abdomen) normal bowel sounds, soft, nontender, no hepatosplenomegaly Musculoskeletal no cyanosis or clubbing, extremities motor strength 5/5 Skin no rashes, warm and dry Neurologic patellar DTR's 2+ bilat, sensation intact and PERRL, EOMI, accommodation nl, no face palsy, no dysarthria Psychiatric A+Ox3, euthymic affect Lymphatic no cervical or axillary lymphadenopathy Discharge Data Allergies Allergy/AdvReac Type Severity Reaction Status Date / Time Penicillins Allergy Severe ANAPHYLAXIS Verified 08/01/17 07:52 cephalexin AdvReac Unknown nausea Verified 08/01/17 07:52 morphine AdvReac Unknown nausea Verified 08/01/17 07:52 Consultations 06/04/18 12:44 Consult Cardiology Routine 06/04/18 12:46 Consult Pulmonology Routine Ordered Studies 06/04/18 13:58 CT angio chest PE protocol Urgent 06/05/18 10:29 US venous doppler [facility] Routine Hospital Course (1) Pulmonary embolism: acute PE causing chest pain and dyspnea no evidence of DVT on doppler on 06/05 hypercoagulable work up sent out, will be back as outpatient treated with heparin drip initially start Xarelto 15mg BID for 21 days then 20mg daily there after follow up with PCP and nephrology (2) COPD (chronic obstructive pulmonary disease): Patient with history of COPD/Asthma, presenting with what appears to be acute exacerbation. On arrival to OSH she was tachypneic, hypoxic, hypertensive, tachycardic, acute respiratory acidosis on ABG improved with BiPAP. much improved, no wheezing for two days, breathing easier changed Solu Medrol to Prednisone, will complete a brief taper at [facility] continue nebulizers continue Doxycycline for total of 7 day course no oxygen needed (3) Asthma: Plan as above (4) Acid reflux: Patient endorses symptoms consistent with acid reflux - continue Pepcid (5) Elevated troponin: due to PE, no further testing Total Time Total Time Spent Total Time Spent (In Minutes): 35 minutes Total Time Includes: Examination of the Patient, Discharge Planning, Medication Reconciliation and Communication With Other Providers Discharge Plan Discharge Items Patient Disposition: Home - Self-Care Reason For Visit: ACUTE HYPOXIC RESPIRATORY FAILURE,COPD Discharge Diagnosis: Acute pulmonary embolism, right lower lobe COPD/Asthma exacerbation Condition: Good Discharge Goals: Improve disease control and Improve function Activity: Resume your previous activity Non-emergency contact: Primary Care Provider Call non-emergency contact if: you have any medication questions, your symptoms worsen and you have a fever Follow-up/Referrals: Alonso Barros [Primary Care Provider] - 06/08/18 1:30 pm (Please, follow up at Dr. Barros's office on June 08 at 1:30 pm. *If you need to change this appointment, call the office at [phone].) Diet: Regular Addtl Provider Instructions: Medications: - XARELTO: anticoagulation for pulmonary embolism, next dose due this evening take 15mg twice a day for 20 more days then 20mg daily in the evening - DOXYCYCLINE: take twice a day for 10 more doses - ASPIRIN: 81mg daily for heart protection - PREDNISONE: start at 40mg daily, decrease by 10mg every 2 days, complete 8 day taper - CRESTOR: 10mg daily, this was recommended by cardiology - CETIRIZINE: allergy medication to help prevent asthma exacerbation - FAMOTIDINE: reflux medication COPD/Asthma exacerbation improved with nebulizers, steroids and antibiotics will complete Prednisone and Doxycycline lungs are clear, no wheezing Right lower lobe pulmonary embolism no signs of DVT this is unprovoked testing sent out for genetic mutations that would lead to clotting, follow up with Dr. Barros treat with Xarelto, 15mg twice a day for 20 more days then 20mg daily likely need 6-12 months of treatment Prescriptions: New doxycycline hyclate 100 mg Capsule 100 mg PO BID 5 Days Qty: 10 RF: 0 cetirizine 10 mg Tablet 10 mg PO QAM 30 Days Qty: 30 RF: 0 Xarelto 15 mg Tablet 15 mg PO BID 20 Days Qty: 40 RF: 0 rosuvastatin 10 mg tablet 10 mg PO DAILY 30 Days Qty: 30 RF: 0 aspirin [Adult Low Dose Aspirin] 81 mg tablet,delayed release (DR/EC) 81 mg PO DAILY 30 Days Qty: 30 RF: 0 famotidine 20 mg Tablet 20 mg PO QAM 30 Days Qty: 30 RF: 0 prednisone 10 mg tablet 40 mg PO UD 8 Days Qty: 20 RF: 0 Xarelto 20 mg tablet 20 mg PO DAILY Qty: 30 RF: 3 Continued albuterol sulfate [ProAir HFA] 90 mcg/actuation Hfa Aerosol Inhaler 2 puff Inhalation BID PRN (Reason: Shortness Of Breath Or Wheezing) Qty: 0 RF: 0 levalbuterol tartrate [Xopenex HFA] 45 mcg/actuation Hfa Aerosol Inhaler 2 puff Inhalation Q4 PRN (Reason: Shortness Of Breath Or Wheezing) Qty: 0 RF: 0 ipratropium-albuterol 0.5 mg-3 mg(2.5 mg base)/3 mL Solution For Nebulization 3 ml INHALATION QID PRN (Reason: Shortness Of Breath Or Wheezing) Qty: 0 RF: 0 ascorbic acid (vitamin C) [Vitamin C] 500 mg Tablet,Chewable 500 mg PO DAILY Qty: 0 RF: 0 Qvar RediHaler 80 mcg/actuation Hfa Aerosol Breath Activated 1 puff Inhalation BID Qty: 0 RF: 0 Discontinued prednisone 10 mg Tablet 10 mg PO DAILY Qty: 19 RF: 0 Stand-Alone Forms: [facility], Work/School Release (Inpt) Discharge Orders: Discharge Order (Routine); Ordered 06/06/18 Ordered By: Michael Mike Admission Data Admit Date/Time: 06/04/18 02:35 Attending Provider: Michael Mike Admit Provider: Renae Gamboa Primary Care Provider: Alonso Barros Other Providers: Sunday Sher Jeffrey A. Service: Telemetry Other Interventions: Discharge Summary Assessment (RN) Last Done: 06/06/18 11:41 Pending Studies at Discharge: Yes Studies:: hypercoagulable work up for pulmonary embolism DC Date/Time DO NOT enter until pt leaves facility: 06/06/18 11:45
--- NOTE | 2018-06-06 10:05 | Cardiology Progress Note ---
Date of Service June 06, 2018 She denies any chest pain chest pressure chest heaviness. She denies the sensation of feeling a hand sitting on her chest. Her shortness of breath is remarkably better. She feels dramatically better here in the hospital as compared to at home where she has exposure both to dogs as well as a wood stove. Next She has any palpitations fluttering or skips she has not ambulated in the hallway yet. Her cough is improved denies any fevers chills or sweats. She can take a deep breath without any discomfort Physical Exam Vital Signs (Past 24 Hours): Last Vital Signs Temp 36.6 C 06/06/18 07:04 Pulse 88 06/06/18 07:24 Resp 16 06/06/18 07:24 BP 137/76 06/06/18 07:04 Pulse Ox 96 06/06/18 07:24 PHYSICAL EXAMINATION: GENERAL: She is awake, alert, oriented x3. She is in no acute distress. VITAL SIGNS: Her heart rate is 101, blood pressure 106/64, respirations 18, her temperature is 36.4, her sats 97% on 3 liters. HEENT: 2+ carotid upstrokes, no evidence of carotid bruit. Jugular venous pressure appeared normal. Sclerae are anicteric. Her hearing is normal. LUNGS: Clear to auscultation bilaterally. No rales, rhonchi or wheezing. With forced expiration there is no wheezing. HEART: Regular rate and rhythm. No appreciable murmurs, rubs or gallops. EXTREMITIES: No clubbing, cyanosis. PSYCHIATRIC: Affect appeared appropriate. IMPRESSION: 1. Increasing shortness of breath and dyspnea on exertion and a sense of chest fullness. 2. Occasional symptoms of gastroesophageal reflux disease. 3. Previous significant tobacco history. 4. She describes an LDL of near 200 with a total cholesterol close to 300. 5. Significant decline in her exercise capacity. 6. Right lower lobe pulmonary embolism 7. Basal to mid inferior, basal inferior septum, and basal inferior lateral hypokinesis to akinesis with preserved left ventricular systolic function 8. No evidence of mitral valve prolapse 9. Normal RV size and function with mild pulmonary hypertension 10. Mild troponin elevation, possible demand ischemia versus coronary ischemia At this point I think her troponin elevation is likely related to demand ischemia from hypoxemia, tachycardia, tachypnea, and the overall stress on her body when she was admitted. There is a question of wall motion abnormalities on her echocardiogram I would allow her to recover from her acute illness. As an outpatient we can arrange for stress testing to rule out ischemia. 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 I did advise her to have a clean room at home in which her dogs are not allowed to enter as well as consider changing her heat source which is likely contributing to her symptoms. I would have her ambulate in the hallway make sure she feels well. There is some discussion as to whether she truly has a pulmonary embolism or not. At this point she remains on apixaban. And a hypercoagulable workup is pending
[2018-06-08 15:07] LABS: Anti Cardiolipin Ab IgG <14 GPL (< = 14); Anti Cardiolipin Ab IgM <12 MPL (< = 12); Anti-Thrombin III Activity 124 % activity (80-120); B2 Glycoprotein IgA <9 SAU (<=20); B2 Glycoprotein IgG <9 SGU (<=20); B2 Glycoprotein IgM <9 SMU (<=20); Lupus Anticoagulant Negative (Negative); Protein S Functional(Activity) 132 % (60-140)
[2018-06-09 18:12] LABS: Aspergillus Ag Index 0.12 (<0.50); Aspergillus Antigen, Serum Not Detected (Not Detected); Aspergillus Flavus Negative (Negative); Aspergillus Niger Negative (Negative); Immunoglobulin IgE 62 KU/L (<115); Mycoplasma pneumoniae Ab, IgG 1.99 (<=0.90); Mycoplasma pneumoniae Ab, IgM 98 U/mL (<770)
== END 2018-06-06 11:45 | disposition home or self-care (01) | DRG 176 ==
LOC: 2S 06-04 02:35 → SUATTDRO 06-04 02:35
DX: I24.8 Other forms of acute ischemic heart disease; I26.99 Other pulmonary embolism without acute cor pulmonale; Z88.0 Allergy status to penicillin; J44.1 Chronic obstructive pulmonary disease with (acute) exacerbation; Z88.1 Allergy status to other antibiotic agents; K21.9 Gastro-esophageal reflux disease without esophagitis; Z80.1 Family history of malignant neoplasm of trachea, bronchus and lung; Z79.52 Long term (current) use of systemic steroids

== ENCOUNTER 2018-07-05 18:37 | Inpatient (IN) ==
[2018-07-05] MEDS ORDERED: ICU PROTOCOL FOR HYPERGLYCEMIA PRN (21:19)
--- NOTE | 2018-07-05 21:36 | History & Physical Report ---
Date of Service July 05, 2018 Assessment & Plan (1) Admitted to intensive care unit: Admission to the intensive care unit due to significant symptomatic anemia requiring transfusions/presumptive upper GI bleed while on Xarelto-- NPO NSS + KCl 20 mEq at 100 mils per hour. Transfuse 2 units PRBCs now. Follow H&H serially every 6 hours. Hold Xarelto. Will not actively reverse his Xarelto at this time, as she has not had bright red blood per rectum. Consult field reimbursement manager Dr. Mercer. Present on Admission?: Yes (2) GI bleed: NPO. Received pantoprazole 80 mg IV while [facility]. Place on pantoprazole 40 mg IV every 12 hours for 48 hours, then daily, due to severe protonix shortage. Patient reports that she had an upper GI test while at [facility] this morning. Consult gastroenterology for EGD. Present on Admission?: Yes (3) Anemia requiring transfusions: See above Present on Admission?: Yes (4) Acid reflux: See above Present on Admission?: Yes (5) Pulmonary embolism: Would order CT PE protocol to confirm present state of right lower lobe PE, once GI status is stabilized. Likely can discontinue Xarelto if negative. Present on Admission?: Yes (6) COPD (chronic obstructive pulmonary disease): Patient reports that her breathing has been significantly improved, except for the worsening due to her present low hemoglobin state. She has not used her inhalers much recently. All nebulizers available to use as needed. Present on Admission?: Yes (7) Hypertension: Hold diltiazem while n.p.o. Present on Admission?: Yes (8) Mitral valve prolapse: Follow. Present on Admission?: Yes History of Present Illness Chief Complaint: The patient presented to the emergency department at [facility] due to dark stools, and worsening shortness of breath. Primary Care Provider: Alonso Barros The patient is a 53-year-old female who presented to the emergency department at [facility] due to darkening stools, and progressive shortness of breath. She had been diagnosed with a right lower lobe pulmonary embolism on 06/04/18 during her last admission at [facility]. She had been started on Xarelto, and reports today upon questioning, that she had noted a change in her stools relatively soon after beginning the Xarelto. She had no bright red blood per rectum. She had no previous episodes of bleeding. She reports that she has significant dyspnea on exertion, but has no shortness of breath at rest. Allergies Allergy/AdvReac Type Severity Reaction Status Date / Time Penicillins Allergy Severe ANAPHYLAXIS Verified 08/01/17 07:52 cephalexin AdvReac Unknown nausea Verified 08/01/17 07:52 morphine AdvReac Unknown nausea Verified 08/01/17 07:52 Home Medications Home Medications Medication Instructions Recorded Confirmed Type albuterol sulfate [ProAir HFA] 2 puff INHALATION BID PRN #0 aer 06/24/15 07/05/18 History ascorbic acid (vitamin C) [Vitamin 500 mg PO DAILY #0 06/24/15 07/05/18 History C] ipratropium-albuterol 3 ml INHALATION QID PRN #0 inh 06/24/15 07/05/18 History levalbuterol tartrate [Xopenex HFA] 2 puff INHALATION Q4 PRN #0 06/24/15 07/05/18 History Qvar RediHaler 1 puff INHALATION BID #0 08/01/17 07/05/18 History rivaroxaban [Xarelto] 20 mg PO DAILY #30 tab 06/06/18 07/05/18 Rx diltiazem HCl 120 mg PO DAILY 07/05/18 07/05/18 History prednisone 10 mg PO QAM 07/05/18 07/05/18 History Past Med/Surg History Medical History Asthma COPD (chronic obstructive pulmonary disease) Lung nodules Mitral valve prolapse Surgical History S/P appendectomy S/P bronchoscopy S/P section S/P hysterectomy S/P sinus surgery S/P tonsillectomy Family History Other Lung cancer Social History Preferred Language: Congolese Communication Ability: Effective 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 Beliefs That Will Affect Care: None Current Living Situation: Spouse and Family Other Information That Helps Us Care for You: No Feels Safe at Home: Yes Safety Concerns: Feels Safe At This Time Smoking Status: Former smoker Do You Dip or Chew Tobacco: No Second Hand Exposure: No Hx Alcohol Use: Yes Alcohol type: beer and wine Hx Substance Use: No Review of Systems Review of Systems: The patient denies chest pain, palpitations, lower extremity swelling, sore throat, fevers, chills, sweats, nausea, vomiting, diarrhea , constipation, abdominal pain, pelvic pain, blood in urine, dysuria, urinary frequency or urgency, memory loss, loss of consciousness, imbalance, focal or generalized weakness, numbness or tingling in arms or legs, generalized arthralgias or myalgias, back or neck pain, or night sweats. The review of systems is otherwise negative other than for that already noted above, and at least 10 systems have been reviewed. Physical Exam Physical Exam: The patient is awake, alert and oriented 3, appears pale, normocephalic and atraumatic, lying in bed and in no acute distress. HEENT--PERRL, EOMI, mucous membranes and oropharynx dry. Neck--supple. No JVD. No bruits. Thyroid normal, trachea midline, no adenopathy. Heart--normal S1 and S2. No murmurs, rubs or gallops. Lungs--clear bilaterally, no respiratory distress, no accessory muscle use. Abdomen--normal bowel sounds and soft. Nontender. Nondistended, no hernias or masses, no organomegaly. Extremities--no cyanosis or clubbing. No edema. There are good distal pulses b/l. Dermatologic--appears pale. No abnormal lymph nodes, no rash. Neurologic--cranial nerves II through XII grossly intact. Rheumatologic--normal range of motion. Psychiatric--normal affect. Results & Data Laboratory Results Laboratory Results WBC 9.96 K/uL (4.8-10.8) 07/05/18 21:34 RBC 2.17 M/uL (4.2-5.4) L 07/05/18 21:34 Hgb 6.1 g/dL (12.0-16.0) L* 07/05/18 21:34 Hct 19.9 % (37-47) L* 07/05/18 21:34 MCV 91.7 fL (80-100) 07/05/18:34 MCH 28.1 pg (25-34) 07/05/18:34 MCHC 30.7 g/dL (32-36) L 07/05/18 21:34 RDW Std Deviation 53.8 fL (36.4-46.3) H 07/05/18 21:34 RDW Coeff of Lizeth 16.1 % (11.5-14.5) H 07/05/18 21:34 Plt Count 517 K/uL (130-400) H 07/05/18 21:34 MPV 8.2 fL (7.4-10.4) 07/05/18 21:34 Immature Gran % (Auto) 0.9 % 07/05/18 21:34 Neut % (Auto) 78.6 % 07/05/18 21:34 Lymph % (Auto) 15.3 % 07/05/18 21:34 [place] % (Auto) 4.6 % 07/05/18 21:34 Eos % (Auto) 0.2 % 07/05/18 21:34 Baso % (Auto) 0.4 % 07/05/18 21:34 Immature Gran # (Auto) 0.09 K/uL (0.00-0.02) H 07/05/18 21:34 Neut # (Auto) 7.83 K/uL (1.4-6.5) H 07/05/18 21:34 Lymph # (Auto) 1.52 K/uL (1.2-3.4) 07/05/18 21:34 [place] # (Auto) 0.46 K/uL (0.11-0.59) 07/05/18 21:34 Eos # (Auto) 0.02 K/uL (0-0.5) 07/05/18 21:34 Baso # (Auto) 0.04 K/uL (0-0.2) 07/05/18 21:34 Absolute Nucleated RBC 0.07 K/uL (0-0) H 07/05/18 21:34 Nucleated RBC % (auto) 0.7 % 07/05/18 21:34 Polychromasia 1+ 07/05/18 21:34 Hypochromasia Present 07/05/18 21:34 Tear Drop Cells Occasional 07/05/18 21:34 PT 12.0 Seconds (9.0-12.0) 07/05/18 21:34 INR 1.2 (0.9-1.1) H 07/05/18 21:34 APTT 27.6 Seconds (21.0-31.0) 07/05/18 21:34 PTT Ratio 1.0 07/05/18 21:34 Sodium 140 mmol/L (136-145) 07/05/18 21:34 Potassium 4.2 mmol/L (3.5-5.1) 07/05/18 21:34 Chloride 109 mmol/L (98-107) H 07/05/18 21:34 Carbon Dioxide 26 mmol/L (21-32) 07/05/18 21:34 Anion Gap 6.0 (3-11) 07/05/18 21:34 BUN 16 mg/dl (7-18) 07/05/18 21:34 Creatinine 0.65 mg/dl (0.6-1.2) 07/05/18 21:34 Est Cr Clr Drug Dosing Not Reportable 07/05/18 21:34 Est GFR ( Amer) 116.7 07/05/18 21:34 Est GFR (Non-Af Amer) 100.7 07/05/18 21:34 BUN/Creatinine Ratio 25.4 (10-20) H 07/05/18 21:34 Glucose 106 mg/dl (70-99) H 07/05/18 21:34 Calcium 9.1 mg/dl (8.5-10.1) 07/05/18 21:34 Magnesium 2.4 mg/dl (1.8-2.4) 07/05/18 21:34 Total Bilirubin 0.2 mg/dl (0.2-1) 07/05/18 21:34 AST 12 U/L (15-37) L 07/05/18 21:34 ALT 33 U/L (12-78) 07/05/18 21:34 Alkaline Phosphatase 60 U/L (45-117) 07/05/18 21:34 Troponin I < 0.015 ng/ml (0-0.045) 07/05/18 21:34 Total Protein 6.6 gm/dl (6.4-8.2) 07/05/18 21:34 Albumin 3.7 gm/dl (3.4-5.0) 07/05/18 21:34 Globulin 2.9 gm/dl (2.5-4.0) 07/05/18 21:34 Albumin/Globulin Ratio 1.3 (0.9-2) 07/05/18 21:34 Nasal Screen MRSA (PCR) Negative (Negative) 07/05/18 21:23 Blood Type A Positive 07/05/18 21:34 Blood Type Recheck A Positive 04/17/19 22:51 Antibody Screen NEGATIVE 07/05/18 21:34 Crossmatch See Detail 07/05/18 21:34 Code Status & VTE Plan Code Status Full code VTE Prophylaxis Plan VTE Prophylaxis will be ordered: Yes Critical Care Time Total critical care time was 40 minutes Critical Care Time: Yes Total Critical Care Time: 40 (1) COPD (chronic obstructive pulmonary disease) COPD type: chronic bronchitis Chronic bronchitis type: unspecified Qualified Code(s): J42 - Unspecified chronic bronchitis
[2018-07-05] MEDS ORDERED: ACETAMINOPHEN 1,000 MG/100 ML VIAL IV PRN (21:38)
--- NOTE | 2018-07-05 21:42 | XRay Report ---
XR chest 1V portable CLINICAL HISTORY: shortness of breath dyspnea COMPARISON STUDY: 06/04/2018 FINDINGS: The bones soft tissues and hemidiaphragms are normal. The cardiomediastinal silhouette is n ormal. The lungs are clear. The pulmonary vasculature is normal. IMPRESSION: Negative chest. The above report was generated using voice recognition software. It may contain grammatical, syntax or spelling errors. Electronically signed by: Elio Gould M.D. 07/05/2018 9:40 PM
[2018-07-05 22:00] LABS: INR 1.2 (0.9-1.1); Partial Thromboplastin Time 27.6 Seconds (21.0-31.0)
[2018-07-05 22:01] LABS: Alanine Aminotransferase 33 U/L (12-78); Albumin Level 3.7 gm/dl (3.4-5.0); Aspartate Aminotransferase 12 U/L (15-37); BUN Creatinine Ratio 25.4 (10-20); Blood Urea Nitrogen 16 mg/dl (7-18); Calcium 9.1 mg/dl (8.5-10.1); Carbon Dioxide 26 mmol/L (21-32); Chloride 109 mmol/L (98-107); Est GFR (African American) 116.7; Est GFR (Non-African American) 100.7; Glucose 106 mg/dl (70-99); Magnesium 2.4 mg/dl (1.8-2.4); Potassium 4.2 mmol/L (3.5-5.1); Sodium 140 mmol/L (136-145)
[2018-07-05 22:05] LABS: Hematocrit (blood only) 19.9 % (37-47); Hemoglobin 6.1 g/dL (12.0-16.0); Mean Corpuscular Hgb Conc 30.7 g/dL (32-36); Mean Corpuscular Volume 91.7 fL (80-100); Mean Platelet Volume 8.2 fL (7.4-10.4); Nucleated RBC # (auto) 0.07 K/uL (0-0); Nucleated RBC % (auto) 0.7 %; Platelet Count 517 K/uL (130-400); RDW Coefficient of Variation 16.1 % (11.5-14.5); RDW Standard Deviation 53.8 fL (36.4-46.3); Red Blood Count 2.17 M/uL (4.2-5.4); White Blood Count 9.96 K/uL (4.8-10.8)
[2018-07-05 22:06] LABS: Albumin Globulin Ratio 1.3 (0.9-2); Alkaline Phosphatase 60 U/L (45-117); Bilirubin,Total 0.2 mg/dl (0.2-1); Globulin 2.9 gm/dl (2.5-4.0); Total Protein 6.6 gm/dl (6.4-8.2); Troponin I < 0.015 ng/ml (0-0.045)
[2018-07-05] MEDS ORDERED: PATIENT'S HEIGHT AND/OR WEIGHT NEEDED SCH (22:15)
[2018-07-05] MEDS ORDERED: SODIUM CHLORIDE 0.9% 250 ML IV PRN (22:21)
[2018-07-05 22:31] LABS: Basophils # (auto) 0.04 K/uL (0-0.2); Basophils % (auto) 0.4 %; Eosinophils # (auto) 0.02 K/uL (0-0.5); Eosinophils % (auto) 0.2 %; Hypochromasia Present; Immature Granulocytes # (auto) 0.09 K/uL (0.00-0.02); Immature Granulocytes % (auto) 0.9 %; Lymphocytes # (auto) 1.52 K/uL (1.2-3.4); Lymphocytes % (auto) 15.3 %; Monocytes # (auto) 0.46 K/uL (0.11-0.59); Monocytes % (auto) 4.6 %; Neutrophils # (auto) 7.83 K/uL (1.4-6.5); Neutrophils % (auto) 78.6 %; Polychromasia 1+; Tear Drop Cells Occasional
[2018-07-05] MEDS: NSS + 20MEQ KCL 20 MEQ/1,000 ML BAG IV SCH (22:34)
[2018-07-06] MEDS: PANTOprazole 40 MG in SYRINGE 0 ML IV SCH ×2 (05:52→21:45)
[2018-07-06 06:33] LABS: Basophils # (auto) 0.03 K/uL (0-0.2); Basophils % (auto) 0.3 %; Eosinophils # (auto) 0.06 K/uL (0-0.5); Eosinophils % (auto) 0.6 %; Hematocrit (blood only) 26.4 % (37-47); Hemoglobin 8.3 g/dL (12.0-16.0); Immature Granulocytes # (auto) 0.04 K/uL (0.00-0.02); Immature Granulocytes % (auto) 0.4 %; Lymphocytes # (auto) 2.96 K/uL (1.2-3.4); Lymphocytes % (auto) 31.2 %; Mean Corpuscular Hgb Conc 31.4 g/dL (32-36); Mean Corpuscular Volume 88.9 fL (80-100); Mean Platelet Volume 8.4 fL (7.4-10.4); Monocytes # (auto) 0.67 K/uL (0.11-0.59); Monocytes % (auto) 7.1 %; Neutrophils # (auto) 5.72 K/uL (1.4-6.5); Neutrophils % (auto) 60.4 %; Nucleated RBC # (auto) 0.04 K/uL (0-0); Nucleated RBC % (auto) 0.4 %; Platelet Count 403 K/uL (130-400); RDW Coefficient of Variation 15.4 % (11.5-14.5); Red Blood Count 2.97 M/uL (4.2-5.4); White Blood Count 9.48 K/uL (4.8-10.8)
[2018-07-06 06:34] LABS: BUN Creatinine Ratio 26.1 (10-20); Calcium 8.2 mg/dl (8.5-10.1); Creatinine Clr Calc Pharmacy 99.2 ml/min; Est GFR (African American) 121.8; Est GFR (Non-African American) 105.1; Magnesium 2.3 mg/dl (1.8-2.4); Potassium 4.1 mmol/L (3.5-5.1)
[2018-07-06 06:38] LABS: Bilirubin Direct 0.1 mg/dl (0-0.2); Bilirubin,Total 0.5 mg/dl (0.2-1); Total Protein 5.6 gm/dl (6.4-8.2)
[2018-07-06 06:56] LABS: Anisocytosis Present; Hypochromasia Present; Polychromasia 1+; Schistocytes 1+; Target Cells 1+
[2018-07-06 07:27] LABS: INR 1.1 (0.9-1.1); Partial Thromboplastin Ratio 0.9; Partial Thromboplastin Time 25.4 Seconds (21.0-31.0); Prothrombin Time 11.1 Seconds (9.0-12.0)
[2018-07-06] MEDS: NSS + 20MEQ KCL 20 MEQ/1,000 ML BAG IV SCH (09:16)
--- NOTE | 2018-07-06 09:52 | Hospitalist Progress Note ---
Date of Service July 06, 2018 Assessment & Plan (1) Admitted to intensive care unit: Admission to the intensive care unit due to significant symptomatic anemia requiring transfusions/presumptive upper GI bleed while on Xarelto-- Transfused 2 units PRBCs now. Hold Xarelto. Patient had oral candidiasis and nonbleeding ulcers on endoscopy. Recommendations by GI medicine is to pursue Protonix and Carafate will add oral nystatin for her oral candidiasis. We will downgraded from the ICU to medical floor (2) GI bleed: pantoprazole 40 mg twice daily (3) Anemia requiring transfusions: There is acute blood loss anemia from likely upper GI bleeding (4) Acid reflux: Continue PPI and Carafate (5) Pulmonary embolism: Patient states there is some discord regarding the exact confirmation of her previous PE. We will repeat a CT angiogram of the patient remained stable to have a final determination whether she needs chronic anti-coagulation or not (6) COPD (chronic obstructive pulmonary disease): Patient reports that her breathing has been significantly improved, except for the worsening due to her present low hemoglobin state. She has not used her inhalers much recently. All nebulizers available to use as needed. (7) Hypertension: Resume diltiazem once taking p.o. well (8) Mitral valve prolapse: Is been a symptom medic Subjective pt is without abdominal pain or additional melena, has stable vital signs and is scheduled for EGD this day Review of Systems Review of Systems: ROS: well nourished well developed. No double vision blurry vision No problems with speech or swallowing No palpitations, chest pain or pressure No Wheezing or breathing issues No abdominal pain nausea vomiting diarrhea no additional abdominal pain No burning urine urine frequency or changes in color No focal joint pain or muscle pain No skin rashes or oral lesions No unusual bruising or bleeding No focused back pain or numbness or loss of strength No changes in memory or confusion Physical Exam Physical Exam: The patient appeared well nourished and normally developed. Vital signs as documented. Head exam is unremarkable. normocephalic, atraumatic Neck is without jugular venous distension, thyromegaly, or lymphademopathy Lungs are clear to auscultation and percussion. Cardiac exam reveals Rhythm is regular. First and second heart sounds normal. Abdominal exam reveals normal bowel sounds, no masses, no organomegaly Extremities are nonedematous and both pedal pulses are present Neurologic exam is A&Ox3, no focal deficits, strength is equal bilateral Psychologically seems neither anxious or depressed Skin is warm Dry without bruises or lesions Results & Data Vital Signs (Past 12 Hours) Vital Signs Temp Pulse Pulse Resp BP BP Pulse Ox 07/06/18 06:00 77 20 120/55 L 98 07/06/18 05:00 66 18 99/59 L 98 07/06/18 04:45 36.6 C 76 18 110/71 98 07/06/18 04:10 36.6 C 69 17 114/72 98 07/06/18 03:40 36.6 C 70 18 116/66 98 07/06/18 03:25 36.6 C 74 20 113/64 98 07/06/18 03:09 36.6 C 80 14 111/52 L 99 07/06/18 03:00 69 17 96/49 L 98 07/06/18 02:56 36.6 C 73 16 115/49 L 99 07/06/18 02:30 74 16 103/51 L 98 07/06/18 02:00 36.6 C 71 22 110/62 98 07/06/18 01:30 36.6 C 76 19 104/57 L 100 07/06/18 01:15 36.6 C 75 15 98/47 L 99 07/06/18 01:00 93 H 18 88/50 L 98 07/06/18 00:59 36.8 C 82 16 92/50 L 99 07/06/18 00:00 36.7 C 97 H 84 18 111/58 L 100 07/05/18 23:00 78 14 109/59 L 99 07/05/18 22:00 78 16 114/59 L 100 (1) COPD (chronic obstructive pulmonary disease) COPD type: chronic bronchitis Chronic bronchitis type: unspecified Qualified Code(s): J42 - Unspecified chronic bronchitis
--- NOTE | 2018-07-06 09:58 | Gastrointestinal Consultation ---
Date of Consultation July 06, 2018 Assessment & Plan (1) Acute blood loss anemia: (2) GI bleed: Patient is a 53 yo female with a history of COPD and asthma admitted with PE one month ago and started on Eliquis while concurrently taking oral corticosteroids admitted with symptomatic acute blood loss anemia and melena. 1. NPO for now. 2. EGD for further evaluation with Dr. Brown today. 3. Continue Protonix 40 mg IV BID. 4. Continue supportive medical management. 5. Additional recommendations will be made pending results of testing. Supervising Physician Co-Signing Physician Notes Agree with NANCY Manley as above Abd: Soft, NT, ND, +BS Continue current therapy Proceed with EGD today History of Present Illness Reason for Consultation: GIB Requesting Physician: Dr. Mckeon Attending Physician: Rashid Okeefe MD History of Present Illness Patient is a 53 yr old with a history of asthma, MVP and COPD admitted one month ago to [facility] and diagnosed with PE. She was discharged home on Eliquis and states she does chronically use oral Prednisone 10 mg daily for management of her underlying pulmonary disease. After starting the Eliquis, she began to notice darker stools but did not seek medical attention until she states she began developing significant shortness of breath, especially on exertion. She reports also developing chest pains and dizziness. No palpitations or syncope. She presented to her local hospital [facility] and states she did have an UGI series but was transferred to [facility] due to profound anemia. On arrival, her H&H was noted to be 6.1 and 19.9. H&H was normal at 12.7/38.2 just last month during her last hospitalization. She did receive 80 mg IV Protonix at [facility] prior to transfer and has been started on Protonix 40 mg IV BID due to Protonix shortage. Currently, she denies any recent melena and has not had any hematemesis. Denies any abdominal pain or nausea. After 2 units of PRBCs, she now has a H&H of 8.3 and 26.4 Allergies Allergy/AdvReac Type Severity Reaction Status Date / Time cephalexin AdvReac Unknown nausea Verified 07/06/18 14:57 morphine AdvReac Unknown nausea Verified 07/06/18 14:57 Home Medications Home Medications Medication Instructions Recorded Confirmed Type albuterol sulfate [ProAir HFA] 2 puff INHALATION BID PRN #0 aer 06/24/15 07/05/18 History ascorbic acid (vitamin C) [Vitamin 500 mg PO DAILY #0 06/24/15 07/05/18 History C] ipratropium-albuterol 3 ml INHALATION QID PRN #0 inh 06/24/15 07/05/18 History levalbuterol tartrate [Xopenex HFA] 2 puff INHALATION Q4 PRN #0 06/24/15 07/05/18 History Qvar RediHaler 1 puff INHALATION BID #0 08/01/17 07/05/18 History rivaroxaban [Xarelto] 20 mg PO DAILY #30 tab 06/06/18 07/05/18 Rx diltiazem HCl 120 mg PO DAILY 07/05/18 07/05/18 History prednisone 10 mg PO QAM 07/05/18 07/05/18 History Patient History Medical History Asthma COPD (chronic obstructive pulmonary disease) Lung nodules Mitral valve prolapse Surgical History S/P appendectomy S/P bronchoscopy S/P section S/P hysterectomy S/P sinus surgery S/P tonsillectomy Family History Other Lung cancer Social History Preferred Language: Bruneian Communication Ability: Effective 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 Beliefs That Will Affect Care: None Current Living Situation: Spouse and Family Other Information That Helps Us Care for You: No Feels Safe at Home: Yes Safety Concerns: Feels Safe At This Time Smoking Status: Former smoker Do You Dip or Chew Tobacco: No Second Hand Exposure: No Hx Alcohol Use: Yes Alcohol type: beer and wine Hx Substance Use: No Review of Systems Review of Systems: All systems reviewed & are unremarkable except as noted in HPI & below Physical Exam Constitutional: WD/WN, vitals as above Eyes: EOM intact bilaterally Respiratory: normal respiratory effort, lungs clear to auscultation Cardiovascular: Rate/Rhythm: regular rate and regular rhythm Gastrointestinal (Abdomen): Inspection/Auscultation: + hyperactive bowel sounds Percussion/Palpation: abdomen soft; abdomen nontender Musculoskeletal: no edema Skin: no rashes, warm and dry Psychiatric: A+Ox3, euthymic affect Results & Data Vital Signs (Past 12 Hours) Vital Signs Temp Pulse Pulse Resp BP BP Pulse Ox 07/06/18 06:00 77 20 120/55 L 98 07/06/18 05:00 66 18 99/59 L 98 07/06/18 04:45 36.6 C 76 18 110/71 98 07/06/18 04:10 36.6 C 69 17 114/72 98 07/06/18 03:40 36.6 C 70 18 116/66 98 07/06/18 03:25 36.6 C 74 20 113/64 98 07/06/18 03:09 36.6 C 80 14 111/52 L 99 07/06/18 03:00 69 17 96/49 L 98 07/06/18 02:56 36.6 C 73 16 115/49 L 99 07/06/18 02:30 74 16 103/51 L 98 07/06/18 02:00 36.6 C 71 22 110/62 98 07/06/18 01:30 36.6 C 76 19 104/57 L 100 07/06/18 01:15 36.6 C 75 15 98/47 L 99 07/06/18 01:00 93 H 18 88/50 L 98 07/06/18 00:59 36.8 C 82 16 92/50 L 99 07/06/18 00:00 36.7 C 97 H 84 18 111/58 L 100 07/05/18 23:00 78 14 109/59 L 99 07/05/18 22:00 78 16 114/59 L 100 Laboratory Results Abnormal lab results 07/05/18 07/05/18 07/05/18 Range/Units 21:34 21:34 21:34 RBC 2.17 L (4.2-5.4) M/uL Hgb 6.1 L* (12.0-16.0) g/dL Hct 19.9 L* (37-47) % MCHC 30.7 L (32-36) g/dL RDW Std Deviation 53.8 H (36.4-46.3) fL RDW Coeff of Lizeth 16.1 H (11.5-14.5) % Plt Count 517 H (130-400) K/uL Immature Gran # (Auto) 0.09 H (0.00-0.02) K/uL Neut # (Auto) 7.83 H (1.4-6.5) K/uL Porter # (Auto) (0.11-0.59) K/uL Absolute Nucleated RBC 0.07 H (0-0) K/uL INR (0.9-1.1) Chloride 109 H (98-107) mmol/L Creatinine (0.6-1.2) mg/dl BUN/Creatinine Ratio 25.4 H (10-20) Glucose 106 H (70-99) mg/dl Calcium (8.5-10.1) mg/dl AST 12 L (15-37) U/L Total Protein (6.4-8.2) gm/dl Albumin (3.4-5.0) gm/dl Crossmatch See Detail 07/05/18 07/06/18 07/06/18 Range/Units 21:34 05:55 05:55 RBC 2.97 L (4.2-5.4) M/uL Hgb 8.3 L (12.0-16.0) g/dL Hct 26.4 L (37-47) % MCHC 31.4 L (32-36) g/dL RDW Std Deviation 50.0 H (36.4-46.3) fL RDW Coeff of Lizeth 15.4 H (11.5-14.5) % Plt Count 403 H (130-400) K/uL Immature Gran # (Auto) 0.04 H (0.00-0.02) K/uL Neut # (Auto) (1.4-6.5) K/uL Porter # (Auto) 0.67 H (0.11-0.59) K/uL Absolute Nucleated RBC 0.04 H (0-0) K/uL INR 1.2 H (0.9-1.1) Chloride 112 H (98-107) mmol/L Creatinine 0.57 L (0.6-1.2) mg/dl BUN/Creatinine Ratio 26.1 H (10-20) Glucose (70-99) mg/dl Calcium 8.2 L (8.5-10.1) mg/dl AST 10 L (15-37) U/L Total Protein 5.6 L (6.4-8.2) gm/dl Albumin 3.0 L (3.4-5.0) gm/dl Crossmatch
--- NOTE | 2018-07-06 10:04 | Critical Care Progress Note ---
Date of Service July 06, 2018 Assessment & Plan (1) Admitted to intensive care unit: Chase Reese is a 53 year old female with past medical history of asthma, COPD, Lung nodules, MVP diagnosed during , and history of PE diagnosed PE of RLL last month 06/04 and was started on Xarelto, who experienced black/tarry stools for the past couple weeks with worsening dyspnea on exertion, fatigue, that was found to have a Hgb of 6.1 requiring transfusions of 2 units of RBCs. Critically ill because of acute bleed and requires hemodynamic monitoring while resolves. Neuro: Cam negative; alert and oriented Cardiac/Vascular: - history of diagnosed PE of RLL last month 06/04 that was questionable based on on review of previous records with consumer services consultant service questioning from review without seeing defect, and patient was asymptomatic. - Pulse has been mostly in 70s without any persistant tachycardia suggesting respiratory compensation for acute bleed. BPs stable. Pulm: - no dyspnea at rest, O2% sats have been normal GI: - GI consulted, EGD today - Protonix 40mg IV BID Renal/electrolytes: IV Fluids: Normosol @ 100mls/hr : Good urine output showing adequate kidney perfusion. Endo: - Just finished a steroid taper, will start hydrocortisone 50mg q8 hours empirically for stress cortisol coverage. Heme: - Hgb today 8.6 s/p 2 units of RBCs from 6.1 - Will search old EMR for records for hypercoaguable workup from prior studies. - Continue to trend Hgb/Hct and monitor for signs/symptoms of acute bleed - Thombrocytopenia on presentation at 517, most likely EPO response in setting of bleeding that was probable present for weeks per patient's report of black stools for weeks. ID: No signs of infection. Afebrile. Lines: perpheral lines intact DVT ppx: SCDs Resuscitation status: Full Code. Supervising Physician Co-Signing Physician Notes Dr. Lau was resident physician during care of patient. I separately evaluated patient for keenan portions of the history and the exam. I was present during the critical portion of medical decision making, and I discussed the case with the resident. I generally agree with the findings and plan. Patient reports worsening exertional dyspnea we will repeat limited echo, troponins negative x1 will repeat troponins, she reports near daily use of steroids for presumptive reactive airway disease. She just finished a taper will start hydrocortisone 50 mg every 8 empirically. Strongly advocate for patient to follow-up with pulmonary as there is a questionable history of reactive airway disease versus thromboembolic disease, and if anticoagulation is indicated she should likely be on suppressive therapy secondary to long-term anticoagulation use. Subjective Jokasta states her fatigue and dyspnea has imrpoved s/p blood transfuion x2 leuk reduced RBC. She denies chest pain, dyspnea at rest, nausea, vomiting, diarrhea, confusion. Review of Systems Review of Systems: All systems reviewed & are unremarkable except as noted in HPI & below Constitutional: no fever and no chills Ear, Nose, Mouth, Throat: no dizziness and no nasal discharge Respiratory: no cough and no dyspnea Cardiovascular: no chest pain and no edema Gastrointestinal: no abdominal pain, no nausea and no vomiting Genitourinary: no dysuria and no difficulty urinating Musculoskeletal: no neck pain and no joint pain Integumentary: no rash and no lesions Neurologic: no headache(s) and no confusion Psychiatric: no confusion and no hallucinations Endocrine: no polydipsia and no polyuria Physical Exam Constitutional: WD/WN, vitals as above not ill appearing Eyes: + anicteric sclerae and EOM intact bilaterally Neck: normal visual inspection and trachea midline Respiratory: normal respiratory effort, lungs clear to auscultation Cardiovascular: Rate/Rhythm: regular rate and regular rhythm Extremities: no pedal edema Gastrointestinal (Abdomen): Inspection/Auscultation: normal bowel sounds Percussion/Palpation: abdomen nontender Musculoskeletal: Head/Neck/Chest: normocephalic Extremities: no cyanosis Skin: no rashes, warm and dry Neurologic: moves all extremities Speech / Cognition: normal speech Psychiatric: A+Ox3, euthymic affect Results & Data Vital Signs (Past 12 Hours) Vital Signs Temp Pulse Pulse Resp BP BP Pulse Ox 07/06/18 06:00 77 20 120/55 L 98 07/06/18 05:00 66 18 99/59 L 98 07/06/18 04:45 36.6 C 76 18 110/71 98 07/06/18 04:10 36.6 C 69 17 114/72 98 07/06/18 03:40 36.6 C 70 18 116/66 98 07/06/18 03:25 36.6 C 74 20 113/64 98 07/06/18 03:09 36.6 C 80 14 111/52 L 99 07/06/18 03:00 69 17 96/49 L 98 07/06/18 02:56 36.6 C 73 16 115/49 L 99 07/06/18 02:30 74 16 103/51 L 98 07/06/18 02:00 36.6 C 71 22 110/62 98 07/06/18 01:30 36.6 C 76 19 104/57 L 100 07/06/18 01:15 36.6 C 75 15 98/47 L 99 07/06/18 01:00 93 H 18 88/50 L 98 07/06/18 00:59 36.8 C 82 16 92/50 L 99 07/06/18 00:00 36.7 C 97 H 84 18 111/58 L 100 07/05/18 23:00 78 14 109/59 L 99 07/05/18 22:00 78 16 114/59 L 100 07/05/18 21:22 07/05/18 21:19 85 07/05/18 21:00 81 17 115/67 99 07/05/18 20:45 36.7 C 85 24 130/61 98 Pulse Ox 07/06/18 06:00 07/06/18 05:00 07/06/18 04:45 07/06/18 04:10 07/06/18 03:40 07/06/18 03:25 07/06/18 03:09 07/06/18 03:00 07/06/18 02:56 07/06/18 02:30 07/06/18 02:00 07/06/18 01:30 07/06/18 01:15 07/06/18 01:00 07/06/18 00:59 07/06/18 00:00 07/05/18 23:00 07/05/18 22:00 07/05/18 21:22 99 07/05/18 21:19 07/05/18 21:00 07/05/18 20:45
[2018-07-06 10:37] LABS: Hematocrit (blood only) 26.5 % (37-47); Hemoglobin 8.6 g/dL (12.0-16.0)
[2018-07-06] MEDS: NORMOSOL-R 1,000 ML IV SCH (10:50)
[2018-07-06] MEDS: HYDROCORTISONE SOD 50 MG in SYRINGE 0 ML IV SCH ×2 (10:50→20:27)
--- NOTE | 2018-07-06 15:31 | Anesthesiology Consultation ---
Date of Service July 06, 2018 Assessment & Plan (1) Encounter for pre-operative examination: Chart Review Chart Review: Acceptable Risk for Surgery and Patient NOT seen in Pre Admission Testing Consults Requested none NPO Date Last Intake of Fluids: 07/06/18 Time Last Intake of Fluids: 01:00 Date Last Intake of Solids: 07/05/18 Time Last Intake of Solids: 10:30 History Surgery Operation Date: 07/06/18 09:00 Proposed Procedures p Esophagogastroduodenoscopy Dr Kevin Hernandez Case, DO Height/Weight Height: 5 ft 1 in Weight: 67.5 kg Allergies Allergy/AdvReac Type Severity Reaction Status Date / Time cephalexin AdvReac Unknown nausea Verified 07/06/18 14:57 morphine AdvReac Unknown nausea Verified 07/06/18 14:57 Medications Home Medications Medication Instructions Recorded Confirmed Last Taken albuterol sulfate [ProAir HFA] 2 puff INHALATION BID PRN #0 aer 06/24/15 07/05/18 1 Day Ago ~06/03/18 ascorbic acid (vitamin C) [Vitamin 500 mg PO DAILY #0 06/24/15 07/05/18 1 Day Ago C] ~06/03/18 ipratropium-albuterol 3 ml INHALATION QID PRN #0 inh 06/24/15 07/05/18 1 Day Ago ~06/03/18 levalbuterol tartrate [Xopenex HFA] 2 puff INHALATION Q4 PRN #0 06/24/15 07/05/18 1 Day Ago ~06/03/18 Qvar RediHaler 1 puff INHALATION BID #0 08/01/17 07/05/18 1 Day Ago ~06/03/18 rivaroxaban [Xarelto] 20 mg PO DAILY #30 tab 06/06/18 07/05/18 Unknown diltiazem HCl 120 mg PO DAILY 07/05/18 07/05/18 Unknown prednisone 10 mg PO QAM 07/05/18 07/05/18 Unknown Active Medications Generic Name Dose Route Start Last Admin Trade Name Freq PRN Reason Stop Dose Admin Pantoprazole Sodium 40 mg/ 10 mls @ 5 mls/min 07/06/18 06:00 07/06/18 05:52 Syringe IV 08/05/18 05:59 5 mls/min BID@0900,2100 [place] Administration Acetaminophen 1,000 mg in 100 mls @ 400 mls/hr 07/05/18 21:38 07/05/18 22:49 Ofirmev IV 08/04/18 21:37 Infused Q8H PRN Infusion Pain or Fever Hydrocortisone Sodium 1 mls @ 4 mls/min 07/06/18 12:00 07/06/18 10:50 Succinate 50 mg/ Syringe IV 08/05/18 11:59 4 mls/min Q8H [place] Administration Parenteral Electrolytes 1,000 mls @ 100 mls/hr 07/06/18 10:15 07/06/18 10:50 Normosol-R IV 08/05/18 10:14 100 mls/hr .Q10H [place] Administration Past Medical History Medical History Asthma COPD (chronic obstructive pulmonary disease) Lung nodules Mitral valve prolapse Past Family History Family History Other Lung cancer Past Surgical History Surgical History S/P appendectomy S/P bronchoscopy S/P section S/P hysterectomy S/P sinus surgery S/P tonsillectomy Social History Smoking Status: Former smoker Do You Dip or Chew Tobacco: No Hx Alcohol Use: Yes Alcohol type: beer and wine alcohol intake frequency: holidays/special occasions only Hx Substance Use: No substance use type: does not use Physical Exam Vital Signs Last Vital Signs Temp 36.8 C 07/06/18 14:58 Pulse 75 07/06/18 14:58 Resp 20 07/06/18 14:58 BP 129/62 07/06/18 14:58 Pulse Ox 97 07/06/18 14:58 Testing Laboratory Results 07/06/18 10:23 07/06/18 05:55 Blood Type A Positive 07/05/18 21:34 Antibody Screen NEGATIVE 07/05/18 21:34 PT 11.1 Seconds (9.0-12.0) 07/06/18 07:07 INR 1.1 (0.9-1.1) 07/06/18 07:07 APTT 25.4 Seconds (21.0-31.0) 07/06/18 07:07 07/06/18 07/06/18 13:43 05:55 POC Glucose 99 89
[2018-07-06] MEDS ORDERED: ePHEDrine sulfate 50 MG/ML AMP IV PRN (15:34)
[2018-07-06] MEDS ORDERED: ATROPINE SULFATE 0.1 MG/ML 10ML SYR IV PRN (15:34)
[2018-07-06] MEDS ORDERED: LIDOCAINE HCL 2% 2 ML VIAL/AMP(20MG/ML) INFIL ONE (16:46)
[2018-07-06] MEDS ORDERED: PROPOFOL IV EMULSION 10 MG/ML 20 ML VIAL IV ONE (16:46)
--- NOTE | 2018-07-06 17:07 | GI REPORT ---
Patient Name: Chase Reese Procedure Date: 07/06/2018 4:43 PM Date of : 1965 Admit Type: Inpatient Age: 53 Gender: Female Attending MD: Sohail Brown DO Procedure: Upper GI endoscopy Providers: Sohail Brown DO Referring MD: Michael Mike Indications: Acute post hemorrhagic anemia Medicines: Monitored Anesthesia Care Complications: No immediate complications. Estimated Blood Loss: Estimated blood loss: none. Procedure: Pre-Anesthesia Assessment: - Prior to the procedure, a History and Physical was performed, and patient medications and allergies were reviewed. The patient's tolerance of previous anesthesia was also reviewed. The risks and benefits of the procedure and the sedation options and risks were discussed with the patient. All questions were answered, and informed consent was obtained. Prior Anticoagulants: The patient last took aspirin 2 days and Xarelto (rivaroxaban) 2 days prior to the procedure. ASA Grade Assessment: III - A patient with severe systemic disease. After reviewing the risks and benefits, the patient was deemed in satisfactory condition to undergo the procedure. After obtaining informed consent, the endoscope was passed under direct vision. Throughout the procedure, the patient's blood pressure, pulse, and oxygen saturations were monitored continuously. The Endoscope was introduced through the mouth, and advanced to the second part of duodenum. The upper GI endoscopy was accomplished without difficulty. The patient tolerated the procedure well. Findings: Patchy, white plaques were found in the entire esophagus. Cells for cytology were obtained by brushing. Many non-bleeding cratered gastric ulcers with no stigmata of bleeding were found in the gastric antrum. The largest lesion was 3 mm in largest dimension. Biopsies were taken with a cold forceps for histology. The examined duodenum was normal. Impression: - Esophageal plaques were found, consistent with candidiasis. Cells for cytology obtained. - Non-bleeding gastric ulcers with no stigmata of bleeding. Biopsied. - Normal examined duodenum. Recommendation: - [facility] care. - Advance diet as tolerated. - Use sucralfate tablets 1 gram PO QID for 10 days. - Use Protonix (pantoprazole) 40 mg PO BID. - Await pathology results. Sohail Brown DO 07/06/2018 5:07:12 PM This report has been signed electronically. Note Initiated On: 07/06/2018 4:43 PM Number of Addenda: 0 I attest to the content of the Intraoperative Record and orders documented therein, exceptions below {[id number]}
--- NOTE | 2018-07-06 17:43 | Anesthesiology Progress Note ---
Date of Service July 06, 2018 Anesthesia Post Procedure Vital Signs Vital Signs: Temp Pulse Pulse Resp BP BP Pulse Ox 07/06/18 17:18 81 16 127/65 100 07/06/18 17:17 98 H 16 113/63 99 07/06/18 17:10 87 16 94/66 L 99 07/06/18 14:58 36.8 C 75 20 129/62 97 07/06/18 14:02 88 29 H 112/54 L 97 07/06/18 13:00 78 26 H 111/61 95 07/06/18 12:00 73 17 117/60 98 07/06/18 11:15 77 20 134/69 97 07/06/18 11:01 90 30 H 134/69 99 07/06/18 11:00 79 21 100 07/06/18 10:01 70 10 L 107/65 99 07/06/18 09:01 36.6 C 69 15 118/73 99 07/06/18 07:01 77 19 126/71 98 07/06/18 06:00 77 20 120/55 L 98 07/06/18 05:00 66 18 99/59 L 98 07/06/18 04:45 36.6 C 76 18 110/71 98 07/06/18 04:10 36.6 C 69 17 114/72 98 07/06/18 03:40 36.6 C 70 18 116/66 98 07/06/18 03:25 36.6 C 74 20 113/64 98 07/06/18 03:09 36.6 C 80 14 111/52 L 99 07/06/18 03:00 69 17 96/49 L 98 07/06/18 02:56 36.6 C 73 16 115/49 L 99 07/06/18 02:30 74 16 103/51 L 98 07/06/18 02:00 36.6 C 71 22 110/62 98 07/06/18 01:30 36.6 C 76 19 104/57 L 100 07/06/18 01:15 36.6 C 75 15 98/47 L 99 07/06/18 01:00 93 H 18 88/50 L 98 07/06/18 00:59 36.8 C 82 16 92/50 L 99 07/06/18 00:00 36.7 C 97 H 84 18 111/58 L 100 07/05/18 23:00 78 14 109/59 L 99 07/05/18 22:00 78 16 114/59 L 100 07/05/18 21:22 07/05/18 21:19 85 07/05/18 21:00 81 17 115/67 99 07/05/18 20:45 36.7 C 85 24 130/61 98 Pulse Ox 07/06/18 17:18 07/06/18 17:17 07/06/18 17:10 07/06/18 14:58 07/06/18 14:02 07/06/18 13:00 07/06/18 12:00 07/06/18 11:15 07/06/18 11:01 07/06/18 11:00 07/06/18 10:01 07/06/18 09:01 07/06/18 07:01 07/06/18 06:00 07/06/18 05:00 07/06/18 04:45 07/06/18 04:10 07/06/18 03:40 07/06/18 03:25 07/06/18 03:09 07/06/18 03:00 07/06/18 02:56 07/06/18 02:30 07/06/18 02:00 07/06/18 01:30 07/06/18 01:15 07/06/18 01:00 07/06/18 00:59 07/06/18 00:00 07/05/18 23:00 07/05/18 22:00 07/05/18 21:22 99 07/05/18 21:19 07/05/18 21:00 07/05/18 20:45 Pain Intensity Bilateral Head: Pain Intensity: 3 Notes Mental Status: alert / awake / arousable and participated in evaluation Nausea / Vomiting: adequately controlled Pain: adequately controlled Airway Patency, RR, SpO2: stable & adequate BP & HR: stable & adequate Hydration State: stable & adequate Anesthetic Complications: no major complications apparent and Pt Satisfied with anesthetic care
[2018-07-06 18:17] LABS: Hematocrit (blood only) 29.1 % (37-47); Hemoglobin 9.3 g/dL (12.0-16.0)
[2018-07-06] MEDS: SUCRALFATE 1 GM/10 ML UDC PO SCH (21:45)
[2018-07-06] MEDS: NYSTATIN SUSP 500,000 U/5 ML UDC PO SCH (21:45)
[2018-07-07] MEDS: NORMOSOL-R 1,000 ML IV SCH ×2 (01:27→11:21)
[2018-07-07] MEDS: HYDROCORTISONE SOD 50 MG in SYRINGE 0 ML IV SCH ×2 (03:58→13:28)
[2018-07-07 08:02] LABS: Basophils # (auto) 0.01 K/uL (0-0.2); Basophils % (auto) 0.1 %; Eosinophils # (auto) 0.01 K/uL (0-0.5); Eosinophils % (auto) 0.1 %; Hemoglobin 9.2 g/dL (12.0-16.0); Immature Granulocytes # (auto) 0.07 K/uL (0.00-0.02); Immature Granulocytes % (auto) 0.7 %; Lymphocytes # (auto) 1.06 K/uL (1.2-3.4); Lymphocytes % (auto) 11.1 %; Mean Corpuscular Hgb Conc 31.7 g/dL (32-36); Mean Corpuscular Volume 87.1 fL (80-100); Mean Platelet Volume 8.4 fL (7.4-10.4); Monocytes % (auto) 5.2 %; Neutrophils # (auto) 7.94 K/uL (1.4-6.5); Neutrophils % (auto) 82.8 %; Platelet Count 444 K/uL (130-400); RDW Coefficient of Variation 15.7 % (11.5-14.5); RDW Standard Deviation 50.1 fL (36.4-46.3); Red Blood Count 3.33 M/uL (4.2-5.4); White Blood Count 9.59 K/uL (4.8-10.8)
[2018-07-07 08:11] LABS: Partial Thromboplastin Ratio 0.8; Partial Thromboplastin Time 22.8 Seconds (21.0-31.0); Prothrombin Time 10.2 Seconds (9.0-12.0)
[2018-07-07 08:37] LABS: Albumin Level 3.4 gm/dl (3.4-5.0); Aspartate Aminotransferase 10 U/L (15-37); BUN Creatinine Ratio 22.7 (10-20); Blood Urea Nitrogen 14 mg/dl (7-18); Calcium 8.9 mg/dl (8.5-10.1); Carbon Dioxide 26 mmol/L (21-32); Chloride 109 mmol/L (98-107); Creatinine Clr Calc Pharmacy 91.2 ml/min; Est GFR (African American) 118.5; Est GFR (Non-African American) 102.2; Glucose 122 mg/dl (70-99); Magnesium 2.5 mg/dl (1.8-2.4); Potassium 3.8 mmol/L (3.5-5.1); Sodium 141 mmol/L (136-145)
[2018-07-07] MEDS: SUCRALFATE 1 GM/10 ML UDC PO SCH ×2 (08:39→13:29)
[2018-07-07] MEDS: PANTOprazole 40 MG in SYRINGE 0 ML IV SCH (08:39)
[2018-07-07] MEDS: NYSTATIN SUSP 500,000 U/5 ML UDC PO SCH ×2 (08:40→13:29)
[2018-07-07 08:43] LABS: Alanine Aminotransferase 27 U/L (12-78); Alkaline Phosphatase 61 U/L (45-117); Bilirubin Direct < 0.1 mg/dl (0-0.2); Bilirubin,Total 0.3 mg/dl (0.2-1); Phosphorus 3.1 mg/dl (2.5-4.9); Total Protein 6.5 gm/dl (6.4-8.2)
--- NOTE | 2018-07-07 09:55 | Gastroenterology Progress Note ---
Date of Service July 07, 2018 Assessment & Plan (1) Acute blood loss anemia: (2) GI bleed: Patient is a 53 yo female with a history of COPD and asthma admitted with PE one month ago and started on Eliquis while concurrently taking oral corticosteroids admitted with symptomatic acute blood loss anemia and melena and findings of PUD. 1. Change Protonix to 40 mg PO BID. 2. Carafate 1 g ACHS x 10 days. 3. Continue supportive medical management. Subjective Patient reports feeling well today. She denies any abdominal pain, nausea or vomiting or overt GIB symptoms. No bm since admission. Tolerated diet this morning. VSS are normal. H&H remains stable at ~12/17. Continues Protonix 40 mg IV BID and Carafate 1 g ACHS after EGD yesterday which demonstrated multiple gastric ulcerations. Review of Systems Review of Systems: All systems reviewed & are unremarkable except as noted in HPI & below Physical Exam Constitutional: WD/WN, vitals as above Eyes: EOM intact bilaterally Respiratory: normal respiratory effort, lungs clear to auscultation Cardiovascular: Rate/Rhythm: regular rate and regular rhythm Gastrointestinal (Abdomen): Inspection/Auscultation: normal bowel sounds Percussion/Palpation: abdomen soft; abdomen nontender Skin: no rashes, warm and dry Psychiatric: A+Ox3, euthymic affect Results & Data Vital Signs (Past 12 Hours) Vital Signs Temp Pulse Resp BP Pulse Ox Pulse Ox 07/07/18 07:47 36.6 C 77 16 115/65 97 07/07/18 07:25 99 07/06/18 23:32 36.9 C 83 18 106/63 97 Laboratory Results Abnormal lab results 07/06/18 07/06/18 07/07/18 Range/Units 10:23 18:00 07:44 RBC 3.33 L (4.2-5.4) M/uL Hgb 8.6 L 9.3 L 9.2 L (12.0-16.0) g/dL Hct 26.5 L 29.1 L 29.0 L (37-47) % MCHC 31.7 L (32-36) g/dL RDW Std Deviation 50.1 H (36.4-46.3) fL RDW Coeff of Lizeth 15.7 H (11.5-14.5) % Plt Count 444 H (130-400) K/uL Immature Gran # (Auto) 0.07 H (0.00-0.02) K/uL Neut # (Auto) 7.94 H (1.4-6.5) K/uL Lymph # (Auto) 1.06 L (1.2-3.4) K/uL Chloride (98-107) mmol/L BUN/Creatinine Ratio (10-20) Glucose (70-99) mg/dl Magnesium (1.8-2.4) mg/dl AST (15-37) U/L 07/07/18 Range/Units 07:44 RBC (4.2-5.4) M/uL Hgb (12.0-16.0) g/dL Hct (37-47) % MCHC (32-36) g/dL RDW Std Deviation (36.4-46.3) fL RDW Coeff of Lizeth (11.5-14.5) % Plt Count (130-400) K/uL Immature Gran # (Auto) (0.00-0.02) K/uL Neut # (Auto) (1.4-6.5) K/uL Lymph # (Auto) (1.2-3.4) K/uL Chloride 109 H (98-107) mmol/L BUN/Creatinine Ratio 22.7 H (10-20) Glucose 122 H (70-99) mg/dl Magnesium 2.5 H (1.8-2.4) mg/dl AST 10 L (15-37) U/L
[2018-07-07] MEDS ORDERED: OPTIRAY 320 125ml IV PRN (12:46)
--- NOTE | 2018-07-07 13:03 | CT Scan Report ---
CT ANGIOGRAPHY OF THE CHEST, PULMONARY EMBOLUS PROTOCOL CLINICAL HISTORY: Shortness of breath. History of PE. COMPARISON STUDY: Chest CT June 04, 2018. Chest radiograph July 05, 2018. TECHNIQUE: Following IV administration of 119 mL of Optiray-320, helical axial images of the chest we re obtained utilizing the pulmonary embolus protocol. Maximal intensity projections and sagittal and coronal reformats were viewed on an independent 3D workstation. IV contrast was administered withou t complication. Automated exposure control was utilized for the study. A dose lowering technique wa s utilized adhering to the principles of ALARA. CT DOSE: 379.46 mGycm FINDINGS: No pleural emboli are identified. The subsegmental pulmonary embolus within the right lowe r lobe on CT of June 04, 2018 is no longer identified. There is no thoracic aortic dissection. Size of the heart is normal. There is no pericardial effusion. There is no consolidation. No pneumothorax or pleural effusion is noted. Bony thorax is unremarkable. Several hepatic cysts are present. There i s contrast within visualized portions of the colon. IMPRESSION: 1. No pulmonary emboli identified. 2. No acute intrathoracic findings. Electronically signed by: James Slater M.D. 07/07/2018 1:02 PM
--- NOTE | 2018-07-07 18:53 | Discharge Summary ---
Date of Service July 07, 2018 Admission HPI Per Admitting Provider The patient is a 53-year-old female who presented to the emergency department at [facility] due to darkening stools, and progressive shortness of breath. She had been diagnosed with a right lower lobe pulmonary embolism on 06/04/18 during her last admission at [facility]. She had been started on Xarelto, and reports today upon questioning, that she had noted a change in her stools relatively soon after beginning the Xarelto. She had no bright red blood per rectum. She had no previous episodes of bleeding. She reports that she has significant dyspnea on exertion, but has no shortness of breath at rest. Principal Diagnosis Clean base peptic ulcers, candidiasis Discharge Exam Constitutional well developed and average body habitus Eyes no conjunctival abnormality and no scleral abnormality Neck normal visual inspection and trachea midline Respiratory normal respiratory effort; no respiratory distress Auscultation: lungs clear to auscultation bilaterally Cardiovascular RRR, no murmur, no edema Gastrointestinal (Abdomen) normal bowel sounds, soft, nontender, no hepatosplenomegaly Musculoskeletal no cyanosis or clubbing, extremities motor strength 5/5 Discharge Data Allergies Allergy/AdvReac Type Severity Reaction Status Date / Time cephalexin AdvReac Unknown nausea Verified 07/06/18 14:57 morphine AdvReac Unknown nausea Verified 07/06/18 14:57 Consultations 07/05/18 21:19 Consult Case Management - Discharge Planning Routine 07/05/18 21:21 Consult Trade Facilitator Routine 07/06/18 08:16 Consult Gastroenterology Routine Procedures Performed Operation Date: 07/06/18 09:00 Actual Procedures p EGD Biopsy Cytology - Sohail Hernandez Case, DO Ordered Studies 07/07/18 11:43 CT angio chest PE protocol Routine Hospital Course (1) Admitted to intensive care unit: Admission to the intensive care unit due to significant symptomatic anemia requiring transfusions/presumptive upper GI bleed while on Xarelto-- Transfused 2 units PRBCs Patient had oral candidiasis and nonbleeding ulcers on endoscopy. Recommendations by GI medicine is to pursue Protonix and Carafate will add oral nystatin for her oral candidiasis. (2) GI bleed: pantoprazole 40 mg twice daily orally with 1 week of Carafate (3) Anemia requiring transfusions: There is acute blood loss anemia from likely upper GI bleeding (4) Acid reflux: Continue PPI and Carafate (5) Pulmonary embolism: Patient states there is some discord regarding the exact confirmation of her previous PE. Repeat a CT angiogram does not show any residual subsegmental pulmonary embolism. Apparently the patient feels this diagnosis is in question at the time of initial decision and wishes to not be on anticoagulation unless absolutely required. To this and because she does have other causes of her lula rtness of breath we will not resume Xarelto therapy given she had a significant GI bleed requiring transfusion. (6) COPD (chronic obstructive pulmonary disease): Patient can resume her steroid therapy at 10 mg for 2 days and 5 mg after that. She will use her inhalers and follow-up with her pulmonary doctors as an outpatient (7) Hypertension: Resume diltiazem (8) Mitral valve prolapse: Is been a symptom medic Total Time Total Time Spent Total Time Spent (In Minutes): greater than 30 minutes were required to prepare discharge Discharge Plan Discharge Items Patient Disposition: Home - Self-Care Reason For Visit: GI BLEED,ACUTE BLOOD LOSS ANEMIA Discharge Diagnosis: bleeding from ulcer in stomach Discharge Goals: Decrease discomfort Activity: Resume your previous activity Non-emergency contact: Primary Care Provider Call non-emergency contact if: you have any medication questions Follow-up/Referrals: Alonso Barros [Primary Care Provider] - Diet: Regular Addtl Provider Instructions: avoid using ibuprofen or similar over the counter medication, tylenol is ok reduce or eliminate caffeine and alcohol from your diet follow up with your primary care in one week, you still may have an occasional dark bowel movement but if not persistent or profuse should be expected Prescriptions: New nystatin 100,000 unit/mL Suspension 5 ml PO QID Qty: 200 RF: 0 sucralfate 1 gram tablet 1 gm PO ACHS Qty: 28 RF: 0 pantoprazole 40 mg Tablet,Delayed Release (Dr/Ec) 40 mg PO BID Qty: 60 RF: 4 Continued albuterol sulfate [ProAir HFA] 90 mcg/actuation Hfa Aerosol Inhaler 2 puff Inhalation BID PRN (Reason: Shortness Of Breath Or Wheezing) Qty: 0 RF: 0 levalbuterol tartrate [Xopenex HFA] 45 mcg/actuation Hfa Aerosol Inhaler 2 puff Inhalation Q4 PRN (Reason: Shortness Of Breath Or Wheezing) Qty: 0 RF: 0 ipratropium-albuterol 0.5 mg-3 mg(2.5 mg base)/3 mL Solution For Nebulization 3 ml INHALATION QID PRN (Reason: Shortness Of Breath Or Wheezing) Qty: 0 RF: 0 Qvar RediHaler 80 mcg/actuation Hfa Aerosol Breath Activated 1 puff Inhalation BID Qty: 0 RF: 0 diltiazem HCl 120 mg Capsule,Extended Release 24 Hr 120 mg PO DAILY RF: 0 prednisone 10 mg PO QAM RF: 0 Discontinued ascorbic acid (vitamin C) [Vitamin C] 500 mg Tablet,Chewable 500 mg PO DAILY Qty: 0 RF: 0 Xarelto 20 mg tablet 20 mg PO DAILY Qty: 30 RF: 3 Stand-Alone Forms: [facility], Work/School Release (Inpt) Discharge Orders: Discharge Order (Routine); Ordered 07/07/18 Ordered By: Rashid Okeefe Admission Data Admit Date/Time: 07/05/18 20:30 Attending Provider: Rashid Okeefe Admit Provider: Michael Mike Primary Care Provider: Alonso Barros Other Providers: Jose Mckeon ; Jose Carlos Mercer ; Sohail Brown ; Jazmyne Ashraf ; Marlen Willett Service: Surgical Services Other Interventions: Discharge Summary Assessment (RN) Last Done: 07/07/18 13:44 DC Date/Time DO NOT enter until pt leaves facility: 07/07/18 14:46
[2018-07-07] MEDS ORDERED: PANTOprazole 40 MG TAB PO SCH (21:00)
== END 2018-07-07 14:46 | disposition home or self-care (01) | DRG 378 ==
LOC: 1E 20:30 → SUATTDRO 20:30 → 3W 07-06 18:29
DX: I34.1 Nonrheumatic mitral (valve) prolapse; Z79.52 Long term (current) use of systemic steroids; B37.81 Candidal esophagitis; I10 Essential (primary) hypertension; Z79.01 Long term (current) use of anticoagulants; Z87.891 Personal history of nicotine dependence; T45.515A Adverse effect of anticoagulants, initial encounter; Z88.1 Allergy status to other antibiotic agents; K21.9 Gastro-esophageal reflux disease without esophagitis; D62 Acute posthemorrhagic anemia; Z79.51 Long term (current) use of inhaled steroids; K25.4 Chronic or unspecified gastric ulcer with hemorrhage; Z88.5 Allergy status to narcotic agent; J44.9 Chronic obstructive pulmonary disease, unspecified; Z88.0 Allergy status to penicillin; Z86.711 Personal history of pulmonary embolism; Z79.899 Other long term (current) drug therapy

== ENCOUNTER 2018-09-01 10:48 | Inpatient (IN) ==
--- OUTSIDE RECORDS SUMMARY | 2018-09-01 10:52 | External Medical Summary | Continuity of Care Document ---
:1965 Author Name Terrie Malhorta, Provider Address Unavailable Unavailable , Care Team Providers Name Role Phone Marck Lau PA-C Unavailable [email or web address], Hilary Unavailable [email or web address], ENE Chitra Unavailable Unavailable Unavailable Unavailable Unavailable Problems Solitary pulmonary nodule (793.11) (R91.1) Shortness of breath (786.05) (R06.02) GERD without esophagitis (530.81) (K21.9) Secondary pulmonary hypertension (416.8) Memory loss (780.93) (R41.3) Asthmatic bronchitis (493.90) (J45.909) Allergic rhinitis (477.9) (J30.9) GI bleed (578.9) (K92.2) Recurrent pneumonia (486) (J18.9) Severe persistent asthma, poorly-controlled (493.90) (J45.50 ) Pulmonary embolism (415.19) (I26.99) Hypogammaglobulinemia (279.00) (D80.1) Asthma (493.90) (J45.909) Allergies and Adverse Reactions Keflex TABS (Allergy) Reaction: Nausea Morphine Derivatives (Allergy) Reaction: Nausea Medications Spiriva Respimat 2.5 MCG/ACT Inhalation Aerosol Solution; INHALE 2 PUFFS ONCE DAILY Roscoe Ceeud Start: 28-Aug-2018 Quantity: 1 4 GM Inhaler Refills: 6 Ferrous Sulfate 325 (65 Fe) MG Oral Tabl et; TAKE 1 TABLET TWICE DAILY WITH MEALS. Refills: 0 Pantoprazole Sodium 40 MG Oral Tablet De layed Release; Take 1 tablet twice daily Refills: 0 Zyrtec 10 MG TABS; TAKE 1 TABLET DAILY. Refills: 0 Xopenex HFA 45 MCG/ACT Inhalation Aeroso l; INHALE 2 PUFFS EVERY 4 HOURS NEEDED RANDAL Lau 15 GM Inhaler Quantity: 1 Refills: 5 dilTIAZem HCl - 120 MG Oral Tablet; Take 1/2 tablet in the AM and a 1/2 tablet in the PM Refills: 0 Ipratropium-Albuterol 0.5-2.5 (3) MG/3ML Inhalation Solution; USE 1 UNIT DOSE IN NEBULIZER EVERY 4 HOURS NEEDED. RANDAL Lau 60 x 3 ML Plas Cont Quantity: 3 Refills: 5 Procedures Immunofixation Serum Date: 07-Aug-2018 CBC With DIFF Date: 07-Aug-2018 IG A/G/M, Qn, Ser Date: 07-Aug-2018 Pneumococcal Antibodies - 14 Date: 07-Aug-2018 History of Tonsillectomy Status: Complet ed History of Simple Bunion Exostectomy (Silver Status: Completed Procedure) History of Sinus Surgery Status: Complet ed History of Hysterectomy Status: Complete d History of Tubal Ligation Status: Comple joey History of Mohs Micrographic Surgery Nose Status: Completed History of Section Status: Comp leted History of Eye Surgery Status: Completed History of Appendectomy Status: Complete d Immunizations Td On: 2011 Pneumococcal polysaccharide vaccine, 23 valent On: 2011 Prevnar 13 Intramuscular Suspension On: 07-Aug-2018 10:42 Lot #: [id number], [employer] [place] Family History Unknown Family Member Family history of Lung Cancer (V16.1) Status: Active Co mments: Family History Family history of Colon Cancer (V16.0) Status: Active C omments: Family History Family history of Heart Disease (V17.49) Status: Active Comments: Family History Family history of Asthma (V17.5) Status: Active Comment s: Family History Social History - Smoking Status Former smoker Plan of Treatment Planned Encounters Appointment; Hilary Cee M.D. Start: 07-Sep-2018 13:00 R equest Planned Observations Planned Goals not documented Results No Known Results Results not documented Vital Signs 22-Aug-2018 10:53 Systolic 138 mm[Hg] Comments: Location: RUE; Position: Sitting Diastolic 78 mm[Hg] Comments: Location: RUE; Position: Sitting Heart Rate 65 /min Temperature 98.2 f Respiration 16 /min BMI Calculated 28.17 kg/m2 Weight 154 lb BSA Calculated 1.71 m2 O2 Saturation 96 % Comments: Source: 07-Aug-2018 10:32 Systolic 110 mm[Hg] Diastolic 70 mm[Hg] Heart Rate 74 /min BMI Calculated 28.17 kg/m2 Weight 154 lb BSA Calculated 1.71 m2 Encounters Appointment; Marck Lau PA-C 22-Aug-2018 10:30 Encounter Diagnosis: Problem not documented Appointment; Hilary Cee M.D. 07-Aug-2018 11:00 Encounter Diagnosis: Problem not documented Appointment; [facility], Nursing Station 07-Aug-2018 10:40 Encounter Diagnosis: Problem not documented Appointment; Marck Lau PA-C 13-Jul-2018 14:15 Encounter Diagnosis: Problem not documented Appointment; Hilary Cee M.D. 04-Jul-2018 12:40 Encounter Diagnosis: Problem not documented Appointment; Marck Lau PA-C 12-Jun-2018 8:45 Encounter Diagnosis: Problem not documented Appointment; Marck Lau PA-C 09-Aug-2017 15:45 Encounter Diagnosis: Problem not documented Appointment; Raf Payne M.D. 01-Aug-2017 9:00 Encounter Diagnosis: Problem not documented Appointment; Marck Lau PA-C 12-Jul-2017 12:45 Encounter Diagnosis: Problem not documented Appointment; Marck Lau PA-C 11-Jul-2017 11:15 Encounter Diagnosis: Problem not documented Appointment; Marck Lau PA-C 27-Jun-2017 15:30 Encounter Diagnosis: Problem not documented Appointment; Marck Lau PA-C 14-Jun-2017 15:45 Encounter Diagnosis: Problem not documented Appointment; Marck Lau PA-C 16-May-2017 13:15 Encounter Diagnosis: Problem not documented Appointment; Marck Lau PA-C 26-Apr-2017 14:15 Encounter Diagnosis: Problem not documented Appointment; Marck Lau PA-C 25-Jan-2017 16:00 Encounter Diagnosis: Problem not documented Appointment; Marck Lau PA-C 11-Jan-2017 15:45 Encounter Diagnosis: Problem not documented Appointment; Marck Lau PA-C 27-Dec-2016 10:15 Encounter Diagnosis: Problem not documented Appointment; Marck Lau PA-C 06-Dec-2016 14:45 Encounter Diagnosis: Problem not documented Appointment; Hilary Cee M.D. 07-Sep-2018 13:00 Encounter Diagnosis: Problem not documented
[2018-09-01] MEDS ORDERED: methylPREDNISolone 125 MG/2 ML VIAL IV STA (11:03)
[2018-09-01] MEDS ORDERED: ALBUT/IPRATROP 3MG/0.5MG NEB 3 ML VIAL INH STA (11:03)
[2018-09-01 11:38] LABS: Basophils # (auto) 0.03 K/uL (0-0.2); Basophils % (auto) 0.5 %; Eosinophils # (auto) 0.02 K/uL (0-0.5); Eosinophils % (auto) 0.4 %; Hematocrit (blood only) 39.4 % (37-47); Hemoglobin 12.7 g/dL (12.0-16.0); Immature Granulocytes # (auto) 0.01 K/uL (0.00-0.02); Immature Granulocytes % (auto) 0.2 %; Lymphocytes # (auto) 0.76 K/uL (1.2-3.4); Lymphocytes % (auto) 13.9 %; Mean Corpuscular Hgb Conc 32.2 g/dL (32-36); Mean Platelet Volume 9.4 fL (7.4-10.4); Monocytes % (auto) 1.8 %; Neutrophils # (auto) 4.54 K/uL (1.4-6.5); Neutrophils % (auto) 83.2 %; Platelet Count 311 K/uL (130-400); RDW Coefficient of Variation 18.1 % (11.5-14.5); RDW Standard Deviation 56.8 fL (36.4-46.3); Red Blood Count 4.58 M/uL (4.2-5.4); White Blood Count 5.46 K/uL (4.8-10.8)
[2018-09-01 11:53] LABS: Partial Thromboplastin Time 25.8 Seconds (21.0-31.0)
[2018-09-01] MEDS: MAGNESIUM SULFATE / D5W 1 GM/100 ML BAG IV SCH ×2 (11:53→13:20)
[2018-09-01 11:55] LABS: Alanine Aminotransferase 25 U/L (12-78); Albumin Level 4.1 gm/dl (3.4-5.0); Aspartate Aminotransferase 14 U/L (15-37); Blood Urea Nitrogen 10 mg/dl (7-18); Calcium 9.9 mg/dl (8.5-10.1); Carbon Dioxide 23 mmol/L (21-32); Chloride 109 mmol/L (98-107); Creatinine Clr Calc Pharmacy 70.7 ml/min; Est GFR (Non-African American) 81.1; Glucose 116 mg/dl (70-99); Magnesium 2.2 mg/dl (1.8-2.4); Potassium 4.3 mmol/L (3.5-5.1); Sodium 142 mmol/L (136-145)
[2018-09-01 11:58] LABS: Appearance Urine Clear (Clear); Bilirubin Urine Negative (Negative); Blood Urine Negative (Negative); Color Urine Yellow; Glucose Urine UA Negative (Negative); Ketones Urine Negative (Negative); Leukocyte Esterase Urine Negative (Negative); Nitrite Urine Negative (Negative); Protein Urine Negative (Negative); Specific Gravity Urine 1.014 (1.000-1.030); Urobilinogen Urine Negative (Negative)
[2018-09-01] MEDS ORDERED: OPTIRAY 320 125ml IV PRN (12:06)
[2018-09-01 12:08] LABS: Albumin Globulin Ratio 1.1 (0.9-2); Alkaline Phosphatase 77 U/L (45-117); Bilirubin,Total 0.2 mg/dl (0.2-1); Globulin 3.7 gm/dl (2.5-4.0); Total Protein 7.8 gm/dl (6.4-8.2); Troponin I < 0.015 ng/ml (0-0.045)
--- NOTE | 2018-09-01 12:27 | CT Scan Report ---
CT angio chest PE protocol CT DOSE: 248.64 mGy.cm HISTORY: 53 years-old Female with Dyspnea. Acute shortness of breath TECHNIQUE: Multiple CTA images of the chest were obtained after the intravenous administration of 120 ml Optiray 320. Coronal and sagittal MIPS were obtained from the axial data set and were submitted for review. All measurements were obtained according to NASCET criteria. A dose lowering technique w as utilized adhering to the principles of ALARA. COMPARISON: CTA chest 07/07/2018 FINDINGS: CTA: Heart is normal in size without pericardial effusion. No thoracic aortic aneurysm or dissection. Ther e is patency of the imaged great vessels. The pulmonary arterial tree is opacified to the level of th e proximal subsegmental branches and demonstrates no focal filling defects to suggest pulmonary throm boembolic disease. Respiratory motion artifact limits evaluation of the subsegmental branches about t he inferior segment lingula. CT CHEST: No focal thyroid nodule. No adenopathy by CT size criteria. No pneumothorax or pleural effusion. Mild to moderate bilateral bronchial wall thickening, most pronounced within the lung bases. Subsegmental bibasilar groundglass densities suggest atelectasis. No definite focal airspace consolidation identi fied to suggest pneumonia. No overt pulmonary edema. The central airways appear to be patent. There are multiple hypodense lesions noted throughout the liver suggestive of probable cysts measurin g up to 1.2 cm. Indeterminate 9 x 7 mm ovoid circumscribed mass of the inferolateral quadrant left br east. No acute process of the imaged upper abdomen. Bones appear to be intact. IMPRESSION: 1. No evidence of pulmonary thromboembolic disease. 2. Bilateral bronchial wall thickening suggests bronchitis or reactive airway disease. 3. No pleural effusion, adenopathy or focal airspace consolidation to suggest pneumonia. 4. Indeterminate 9 mm mass of the inferolateral quadrant left breast. Correlate with mammogram. The above report was generated using voice recognition software. It may contain grammatical, syntax o r spelling errors. Electronically signed by: John Theodore M.D. 09/01/2018 12:26 PM
[2018-09-01] MEDS ORDERED: ALBUT/IPRATROP 3MG/0.5MG NEB 3 ML VIAL NEB STA (15:10)
--- NOTE | 2018-09-01 15:14 | Emergency Department Note ---
Entered by Jalyn Cat acting as a scribe for ED Provider Note CHIEF COMPLAINT: SOB HISTORY OF PRESENT ILLNESS: The patient is a 53 year old female with a past medical history of asthma who presents to the ER for a persistent shortness of breath that began several days ago. The patient reports that she was evaluated at [facility] on Tuesday where she had 5 breathing treatments and was then discharged. She states that her shortness of breath as well as cough has persisted since, so she contacted Carlito Lau PA-C who referred her to the ER. She explains that she has been taking steroids, Prednisone and a DuoNeb at home and that it has not been alleviating her symptoms. She denies any sick contacts or anything triggering her asthma flare-up. She states that she does have a history of a PE in May and that the cause is unknown. She notes that the hour long treatment that was provided at [facility] did slightly help. She denies currently being on any blood thinners seco ndary to a blood transfusion. She explains that she does frequently experience asthma flare-ups. She reports that she does have a sore throat but believes it is associated with the cough. The patient denies chest pain, abdominal pain, leg pain or swelling, ear complaints, nose complaints, lymphadenopathy, rash, or other complaints. REVIEW OF SYSTEMS: See HPI for pertinent positives and negatives. A total of ten systems were reviewed and were otherwise negative. PMHx/PSHx: Asthma History of pulmonary embolism HTN COPD History of appendectomy History of tonsillectomy SOCIAL HISTORY: Patient lives at home with family. Former smoker. Occasional alcohol use PHYSICAL EXAM: GENERAL: Awake, alert, well-appearing, in no distress HENT: Normocephalic, atraumatic. Oropharynx unremarkable. EYES: PERRL. Normal conjunctiva. Sclera non-icteric. NECK: Inspection normal. Non-tender. Supple. No nuchal rigidity. FROM. No masses. RESPIRATORY: Inspiratory wheeze on the left side. No rales. Normal respiratory effort. CARDIAC: Tachycardic and regular rhythm. No murmurs. No rubs. Extremities warm and well perfused. Pulses equal. No JVD. GI: Soft, non-distended. No tenderness to palpation. No rebound or guarding. No masses. RECTAL: Deferred. MUSCULOSKELETAL: Atraumatic. Chest examination reveals no tenderness. The back is symmetrical on inspection without obvious abnormality. There is no CVA tenderness to palpation. No joint edema. LOWER EXTREMITIES: Calves are equal size bilaterally and non-tender. No edema. No discoloration. NEURO: Normal sensorium. No sensory or motor deficits noted. SKIN: No rash or jaundice noted. EMERGENCY DEPARTMENT COURSE: 1102: The patient was evaluated in room C4, and a complete history and physical examination were performed. 1310: I updated the patient. 1330: The patient is feeling better. She is currently receiving post-treatment peak flow. We have paged Pulmonology. 1343: I reviewed the patient's case with Carlito Lau PA-C. He recommends admission of the patient. 1353: I updated the patient and she is agreeable with the treatment plan. 1418: I reviewed the patient's case with Dr. Castro - [facility] Hospitalist. He will evaluate the patient for further management. 1510: Patient is awaiting admission by internal medicine. She was feeling short of breath and tight again like she did prior to the hour-long treatment. She was given a DuoNeb. MEDICAL DECISION MAKING: Prior records/ancillary studies reviewed. Triage Nursing notes reviewed and agree them. Additional history obtained from the family. The patient's history was concerning for shortness of breath. Differential diagnosis: Etiologies such as pneumonia, COPD, reactive airway disease, CHF, cardiac ischemia, pulmonary embolism, pneumothorax, musculoskeletal, infections, gastrointestinal, as well as others were entertained. Physical examination: Wheezing as above. ER treatment provided: Hour-long DuoNeb IV Solu-Medrol IV magnesium 2 g On reassessment the patient felt better. Peak flow was still suboptimal. DuoNeb Diagnostic interpretation by me: The electrocardiogram was negative for pathologic change. The labs revealed an unremarkable CBC and chemistry panel. Troponin negative. Imaging studies: CT scan of the chest was performed and was negative for PE. Reactive airway disease findings noted. Consultation: A consultation was placed with her pulmonology team and I discussed the case with Carlito Lau PA-C. He notes that she is very fragile asthmatic and given the course from today as well as earlier this week at the other ER he recommended admission for IV Solu-Medrol for 48 hours in addition to nebulizer treatments. He is very concerned about her potential for decompensation. A consultation was placed with the hospitalist. The case was discussed and diagnostics were reviewed. The patient was evaluated in the ER for further treatment. IMPRESSION: Reactive airway disease, dyspnea, asthma exacerbation PLAN: Being evaluated by hospitalist. The scribe's documentation has been prepared under my direction and personally reviewed by me in its entirety. I confirm that the note above accurately reflects all work, treatment, procedures, and medical decision making performed by me. CRITICAL CARE: I have personally spent greater than 30 minutes of critical care time in the direct management of this patient. This includes bedside care, interpretation of diagnostic studies, and testing, discussion with consultants, patient, and family members, and other required patient management activities. This 30 minutes is in excess of all separately billable procedures. Impression & Plan RAD (reactive airway disease), Dyspnea, Asthma exacerbation Past Med/Surg History Medical History Asthma COPD (chronic obstructive pulmonary disease) Lung nodules Mitral valve prolapse Surgical History S/P appendectomy S/P bronchoscopy S/P section S/P hysterectomy S/P sinus surgery S/P tonsillectomy Family History Other Lung cancer Social History Preferred Language: Venezuelan Communication Ability: Effective Beliefs That Will Affect Care: None Current Living Situation: Spouse and Family Feels Safe at Home: Yes Smoking Status: Former smoker Second Hand Exposure: No Hx Alcohol Use: Yes Alcohol type: beer and wine Hx Substance Use: No Results & Data Vital Signs Vital Signs - 24 hr 09/01/18 10:52 09/01/18 11:03 09/01/18 11:04 Temperature 36.6 C Temperature Source Oral Sepsis Recent Fever Within 48 Hours No Sepsis New/Unexplained Change in Mental Status No Sepsis Action Taken by Nursing No Action Required Pulse Rate 106 H 117 H 113 H Pulse Rate [Apical] Pulse Rate from SpO2 Sensor 116 H 113 H Pulse Rhythm Regular Pulse Strength Normal Respiratory Rate 20 20 28 H Respiratory Effort / Characteristics Non-Labored Spontaneous Spontaneous Short of Breath SOB on Exertion Respiratory Depth Normal Shallow Respiratory Pattern Regular Regular Blood Pressure 167/82 H 162/103 H Blood Pressure Mean 110 122 Blood Pressure Position Sitting Pulse Oximetry 96 99 98 Oxygen Delivery Method Room Air Room Air 09/01/18 11:15 09/01/18 11:21 09/01/18 11:30 Temperature Temperature Source Sepsis Recent Fever Within 48 Hours Sepsis New/Unexplained Change in Mental Status Sepsis Action Taken by Nursing Pulse Rate 100 H 127 H Pulse Rate [Apical] 104 H Pulse Rate from SpO2 Sensor 98 H 124 H Pulse Rhythm Pulse Strength Respiratory Rate 24 22 34 H Respiratory Effort / Characteristics Spontaneous Respiratory Depth Respiratory Pattern Blood Pressure Blood Pressure Mean Blood Pressure Position Pulse Oximetry 94 96 100 Oxygen Delivery Method Room Air 09/01/18 11:31 09/01/18 11:45 09/01/18 12:14 Temperature Temperature Source Sepsis Recent Fever Within 48 Hours Sepsis New/Unexplained Change in Mental Status Sepsis Action Taken by Nursing Pulse Rate 111 H 107 H Pulse Rate [Apical] Pulse Rate from SpO2 Sensor 109 H 110 H 116 H Pulse Rhythm Pulse Strength Respiratory Rate 35 H 25 H Respiratory Effort / Characteristics Respiratory Depth Respiratory Pattern Blood Pressure 153/85 H 133/72 Blood Pressure Mean 107 92 Blood Pressure Position Pulse Oximetry 100 100 96 Oxygen Delivery Method 09/01/18 12:16 09/01/18 12:30 09/01/18 12:31 Temperature Temperature Source Sepsis Recent Fever Within 48 Hours Sepsis New/Unexplained Change in Mental Status Sepsis Action Taken by Nursing Pulse Rate 119 H 114 H 122 H Pulse Rate [Apical] Pulse Rate from SpO2 Sensor 116 H 114 H 119 H Pulse Rhythm Pulse Strength Respiratory Rate 26 H 26 H 25 H Respiratory Effort / Characteristics Respiratory Depth Respiratory Pattern Blood Pressure 142/77 H Blood Pressure Mean 98 Blood Pressure Position Pulse Oximetry 97 100 100 Oxygen Delivery Method 09/01/18 13:00 09/01/18 13:30 09/01/18 13:31 Temperature Temperature Source Sepsis Recent Fever Within 48 Hours Sepsis New/Unexplained Change in Mental Status Sepsis Action Taken by Nursing Pulse Rate 120 H 129 H 126 H Pulse Rate [Apical] Pulse Rate from SpO2 Sensor 121 H 129 H 126 H Pulse Rhythm Pulse Strength Respiratory Rate 26 H 22 23 Respiratory Effort / Characteristics Respiratory Depth Respiratory Pattern Blood Pressure 131/70 128/80 Blood Pressure Mean 90 96 Blood Pressure Position Pulse Oximetry 97 99 96 Oxygen Delivery Method 09/01/18 14:00 09/01/18 14:33 09/01/18 14:35 Temperature Temperature Source Sepsis Recent Fever Within 48 Hours Sepsis New/Unexplained Change in Mental Status Sepsis Action Taken by Nursing Pulse Rate 119 H 121 H Pulse Rate [Apical] Pulse Rate from SpO2 Sensor 119 H 124 H 121 H Pulse Rhythm Pulse Strength Respiratory Rate 26 H 30 H Respiratory Effort / Characteristics Respiratory Depth Respiratory Pattern Blood Pressure 161/82 H 150/78 H Blood Pressure Mean 108 102 Blood Pressure Position Pulse Oximetry 97 96 97 Oxygen Delivery Method Home Medications Current Medication List: was personally reviewed by me Laboratory Data Attestation: I reviewed the patient's lab results. Result diagrams: 09/01/18 11:14 09/01/18 11:14 Lab Results 09/01/18 09/01/18 09/01/18 Range/Units 11:14 11:14 11:14 WBC 5.46 (4.8-10.8) K/uL RBC 4.58 (4.2-5.4) M/uL Hgb 12.7 (12.0-16.0) g/dL Hct 39.4 (37-47) % MCV 86.0 (80-100) fL MCH 27.7 (25-34) pg MCHC 32.2 (32-36) g/dL RDW Std Deviation 56.8 H (36.4-46.3) fL RDW Coeff of Lizeth 18.1 H (11.5-14.5) % Plt Count 311 (130-400) K/uL MPV 9.4 (7.4-10.4) fL Immature Gran % (Auto) 0.2 % Neut % (Auto) 83.2 % Lymph % (Auto) 13.9 % [place] % (Auto) 1.8 % Eos % (Auto) 0.4 % Baso % (Auto) 0.5 % Immature Gran # (Auto) 0.01 (0.00-0.02) K/uL Neut # (Auto) 4.54 (1.4-6.5) K/uL Lymph # (Auto) 0.76 L (1.2-3.4) K/uL [place] # (Auto) 0.10 L (0.11-0.59) K/uL Eos # (Auto) 0.02 (0-0.5) K/uL Baso # (Auto) 0.03 (0-0.2) K/uL PT 10.0 (9.0-12.0) Seconds INR 1.0 (0.9-1.1) APTT 25.8 (21.0-31.0) Seconds PTT Ratio 1.0 Sodium 142 (136-145) mmol/L Potassium 4.3 (3.5-5.1) mmol/L Chloride 109 H (98-107) mmol/L Carbon Dioxide 23 (21-32) mmol/L Anion Gap 10.0 (3-11) BUN 10 (7-18) mg/dl Creatinine 0.82 (0.6-1.2) mg/dl Est Cr Clr Drug Dosing 70.7 ml/min Est GFR ( Amer) 94.0 Est GFR (Non-Af Amer) 81.1 BUN/Creatinine Ratio 12.0 (10-20) Glucose 116 H (70-99) mg/dl Calcium 9.9 (8.5-10.1) mg/dl Magnesium 2.2 (1.8-2.4) mg/dl Total Bilirubin 0.2 (0.2-1) mg/dl AST 14 L (15-37) U/L ALT 25 (12-78) U/L Alkaline Phosphatase 77 (45-117) U/L Troponin I < 0.015 (0-0.045) ng/ml Total Protein 7.8 (6.4-8.2) gm/dl Albumin 4.1 (3.4-5.0) gm/dl Globulin 3.7 (2.5-4.0) gm/dl Albumin/Globulin Ratio 1.1 (0.9-2) Urine Color Urine Appearance (Clear) Urine pH (4.5-7.5) Ur Specific [place] (1.000-1.030) Urine Protein (Negative) Urine Glucose (UA) (Negative) Urine Ketones (Negative) Urine Blood (Negative) Urine Nitrite (Negative) Urine Bilirubin (Negative) Urine Urobilinogen (Negative) Ur Leukocyte Esterase (Negative) 09/01/18 Range/Units 11:27 WBC (4.8-10.8) K/uL RBC (4.2-5.4) M/uL Hgb (12.0-16.0) g/dL Hct (37-47) % MCV (80-100) fL MCH (25-34) pg MCHC (32-36) g/dL RDW Std Deviation (36.4-46.3) fL RDW Coeff of Lizeth (11.5-14.5) % Plt Count (130-400) K/uL MPV (7.4-10.4) fL Immature Gran % (Auto) % Neut % (Auto) % Lymph % (Auto) % [place] % (Auto) % Eos % (Auto) % Baso % (Auto) % Immature Gran # (Auto) (0.00-0.02) K/uL Neut # (Auto) (1.4-6.5) K/uL Lymph # (Auto) (1.2-3.4) K/uL [place] # (Auto) (0.11-0.59) K/uL Eos # (Auto) (0-0.5) K/uL Baso # (Auto) (0-0.2) K/uL PT (9.0-12.0) Seconds INR (0.9-1.1) APTT (21.0-31.0) Seconds PTT Ratio Sodium (136-145) mmol/L Potassium (3.5-5.1) mmol/L Chloride (98-107) mmol/L Carbon Dioxide (21-32) mmol/L Anion Gap (3-11) BUN (7-18) mg/dl Creatinine (0.6-1.2) mg/dl Est Cr Clr Drug Dosing ml/min Est GFR ( Amer) Est GFR (Non-Af Amer) BUN/Creatinine Ratio (10-20) Glucose (70-99) mg/dl Calcium (8.5-10.1) mg/dl Magnesium (1.8-2.4) mg/dl Total Bilirubin (0.2-1) mg/dl AST (15-37) U/L ALT (12-78) U/L Alkaline Phosphatase (45-117) U/L Troponin I (0-0.045) ng/ml Total Protein (6.4-8.2) gm/dl Albumin (3.4-5.0) gm/dl Globulin (2.5-4.0) gm/dl Albumin/Globulin Ratio (0.9-2) Urine Color Yellow Urine Appearance Clear (Clear) Urine pH 5.0 (4.5-7.5) Ur Specific [place] 1.014 (1.000-1.030) Urine Protein Negative (Negative) Urine Glucose (UA) Negative (Negative) Urine Ketones Negative (Negative) Urine Blood Negative (Negative) Urine Nitrite Negative (Negative) Urine Bilirubin Negative (Negative) Urine Urobilinogen Negative (Negative) Ur Leukocyte Esterase Negative (Negative) Administered Medications Ioversol (Optiray 320 125ml) 120 ml IV ONCE PRN PRN Reason: Interaction Checking Stop: 09/05/18 12:05 Last Admin: 09/01/18 12:07 Dose: 120 ml Documented by: [id number] Discontinued Medications Albuterol (Duoneb) 12 ml INH ONE STA Stop: 09/01/18 11:04 Last Admin: 09/01/18 11:21 Dose: 12 ml Documented by: [id number] Magnesium Sulfate/Dextrose (Magnesium Sulfate / D5w) 1 gm in 100 mls @ 100 mls/hr IV Q1H [place] Stop: 09/01/18 13:14 Last Infusion: 09/01/18 14:31 Dose: 0 mls/hr Documented by: [id number] Admin: 09/01/18 13:20 Dose: 100 mls/hr Documented by: [id number] Infusion: 09/01/18 13:19 Dose: 0 mls/hr Documented by: [id number] Admin: 09/01/18 11:53 Dose: 100 mls/hr Documented by: [id number] Methylprednisolone (Solumedrol) 125 mg IV NOW STA Stop: 09/01/18 11:04 Last Admin: 09/01/18 11:53 Dose: 125 mg Documented by: [id number] Imaging Data Radiologist's Impression: Radiology results as stated below per my review and the radiologist's interpretation: CT angio chest PE protocol CT DOSE: 248.64 mGy.cm HISTORY: 53 years-old Female with Dyspnea. Acute shortness of breath TECHNIQUE: Multiple CTA images of the chest were obtained after the intravenous administration of 120 ml Optiray 320. Coronal and sagittal MIPS were obtained from the axial data set and were submitted for review. All measurements were obtained according to NASCET criteria. A dose lowering technique was utilized adhering to the principles of ALARA. COMPARISON: CTA chest 07/07/2018 FINDINGS: CTA: Heart is normal in size without pericardial effusion. No thoracic aortic aneurysm or dissection. There is patency of the imaged great vessels. The pulmonary arterial tree is opacified to the level of the proximal subsegmental branches and demonstrates no focal filling defects to suggest pulmonary thromboembolic disease. Respiratory motion artifact limits evaluation of the subsegmental branches about the inferior segment lingula. CT CHEST: No focal thyroid nodule. No adenopathy by CT size criteria. No pneumothorax or pleural effusion. Mild to moderate bilateral bronchial wall thickening, most pronounced within the lung bases. Subsegmental bibasilar groundglass densities suggest atelectasis. No definite focal airspace consolidation identified to suggest pneumonia. No overt pulmonary edema. The central airways appear to be patent. There are multiple hypodense lesions noted throughout the liver suggestive of probable cysts measuring up to 1.2 cm. Indeterminate 9 x 7 mm ovoid circumscribed mass of the inferolateral quadrant left breast. No acute process of the imaged upper abdomen. Bones appear to be intact. IMPRESSION: 1. No evidence of pulmonary thromboembolic disease. 2. Bilateral bronchial wall thickening suggests bronchitis or reactive airway disease. 3. No pleural effusion, adenopathy or focal airspace consolidation to suggest pneumonia. 4. Indeterminate 9 mm mass of the inferolateral quadrant left breast. Correlate with mammogram. The above report was generated using voice recognition software. It may contain grammatical, syntax or spelling errors. Electronically signed by: John Theodore M.D. 09/01/2018 12:26 PM ECG Data Attestation: I personally reviewed and interpreted this ECG as follows: Indication: SOB/dyspnea Rate (beats per minute): 101 Rhythm: sinus tachycardia Findings: no PAC, no PVC, no ST depression and no ST elevation Blood Pressure Blood Pressure Findings: Elevated blood pressure Blood Pressure Disposition: further management by hospitalist Discharge Plan Visit Data Chief Complaint: Shortness of Breath/Dyspnea Stated Complaint: ASTHMA, BREATHING PROBLEMS, SOB ED Provider: Jorge Dyson Discharge Problem: RAD (reactive airway disease), Dyspnea, Asthma exacerbation Patient Disposition: Being Evaluated by Hospitalist Forms Stand Alone Forms: My [facility] Prescriptions Prescriptions: No Action albuterol sulfate [ProAir HFA] 90 mcg/actuation Hfa Aerosol Inhaler 2 puff Inhalation BID PRN (Reason: Shortness Of Breath Or Wheezing) Qty: 0 RF: 0 levalbuterol tartrate [Xopenex HFA] 45 mcg/actuation Hfa Aerosol Inhaler 2 puff Inhalation Q4 PRN (Reason: Shortness Of Breath Or Wheezing) Qty: 0 RF: 0 ipratropium-albuterol 0.5 mg-3 mg(2.5 mg base)/3 mL Solution For Nebulization 3 ml INHALATION QID PRN (Reason: Shortness Of Breath Or Wheezing) Qty: 0 RF: 0 diltiazem HCl 120 mg Capsule,Extended Release 24 Hr 120 mg PO DAILY RF: 0 prednisone 10 mg PO QAM RF: 0 pantoprazole 40 mg Tablet,Delayed Release (Dr/Ec) 40 mg PO BID Qty: 60 RF: 4 colchicine 0.6 mg tablet 0.3 mg PO DAILY RF: 0 Spiriva Respimat 2.5 mcg/actuation mist 2 puff inhalation DAILY RF: 0 Referrals Referrals: PCP,NO [Primary Care Provider] - Discharge Problem: RAD (reactive airway disease) Qualifiers: Asthma severity: moderate Asthma persistence: persistent Asthma complication type: with acute exacerbation Qualified Code(s): J45.41 - Moderate persistent asthma with (acute) exacerbation Dyspnea Qualifiers: Dyspnea type: shortness of breath Qualified Code(s): R06.02 - Shortness of breath Asthma exacerbation Qualifiers: Asthma severity: moderate Asthma persistence: persistent Qualified Code(s): J45.41 - Moderate persistent asthma with (acute) exacerbation The scribe's documentation has been prepared under my direction and personally reviewed by me in its entirety. I confirm that the note above accurately reflects all work, treatment, procedures, and medical decision making performed by me.
--- NOTE | 2018-09-01 15:48 | History & Physical Report ---
Date of Service September 01, 2018 Assessment & Plan (1) Asthma exacerbation: 53 y/o F Hx COPD, HTN, gout, GERD, PE, PUD/GI bleed while on Xarelto 06/2018. Presents with persistent SOB. She had visited an ER 2 days prior with similar complaints. She denies CP a productive cough or fevers. Initial labs are unremarkable. A CTA was obtained and is negative for PE. The pt did not display hypoxia or wheezing although her air movement was poor on exam. She has been treated twice in the outpt setting and has failed treatment. She also tends to decompensate quickly. She will therefore be assigned to observation for IV steroids and scheduled nebs. 1) COPD/asthma exacerbation - nebs, steroids, antibiotics, 02 protocol 2) HTN - cont Diltiazem 3) PUD - cont Pantoprazole 4) Gout - cont Colchicine Full code - Heparin prophylaxis Total time for this admit including review of labs, meds, imaging, records - discussion with pt, pulmonary PA and ER attending - 35 min Present on Admission?: Yes History of Present Illness Chief Complaint: SOB Primary Care Provider: NO PCP 53 y/o F Hx COPD, HTN, gout, GERD, PE, PUD/GI bleed while on Xarelto 06/2018. Presents with persistent SOB. She had visited an ER 2 days prior with similar complaints. She denies CP a productive cough or fevers. Initial labs are unremarkable. A CTA was obtained and is negative for PE. The pt did not display hypoxia or wheezing although her air movement was poor on exam. She has been treated twice in the outpt setting and has failed treatment. She also tends to decompensate quickly. She will therefore be assigned to observation for IV steroids and scheduled nebs. PMH: 1) History of PE 05/2018 2) GI bleed while on Xarelto for PE - required multiple transfusions - gastric ulcers found on EGD 3) COPD 4) GOUT 5) GERD Surgical: 1) Appendectomy 2) Hysterectomy 3) Sinus surgery 4) Tonsillectomy 5) Mohs procedure Social: Distant smoking history, does not drink Family: Both parents due to lung CA Allergies Allergy/AdvReac Type Severity Reaction Status Date / Time cephalexin AdvReac Unknown nausea Verified 09/01/18 11:56 morphine AdvReac Unknown nausea Verified 09/01/18 11:56 Home Medications Home Medications Medication Instructions Recorded Confirmed Type albuterol sulfate [ProAir HFA] 2 puff INHALATION BID PRN #0 aer 06/24/15 09/01/18 History ipratropium-albuterol 3 ml INHALATION QID PRN #0 inh 06/24/15 09/01/18 History levalbuterol tartrate [Xopenex HFA] 2 puff INHALATION Q4 PRN #0 06/24/15 09/01/18 History diltiazem HCl 120 mg PO DAILY 07/05/18 09/01/18 History prednisone 10 mg PO QAM 07/05/18 09/01/18 History pantoprazole 40 mg PO BID #60 tab 07/07/18 09/01/18 Rx colchicine 0.3 mg PO DAILY 09/01/18 09/01/18 History tiotropium bromide [Spiriva 2 puff INHALATION DAILY 09/01/18 09/01/18 History Respimat] Past Med/Surg History Medical History Asthma COPD (chronic obstructive pulmonary disease) Lung nodules Mitral valve prolapse Surgical History S/P appendectomy S/P bronchoscopy S/P section S/P hysterectomy S/P sinus surgery S/P tonsillectomy Family History Other Lung cancer Social History Preferred Language: New Zealander Communication Ability: Effective Beliefs That Will Affect Care: None Current Living Situation: Spouse and Family Feels Safe at Home: Yes Smoking Status: Former smoker Second Hand Exposure: No Hx Alcohol Use: Yes Alcohol type: beer and wine Hx Substance Use: No Review of Systems Review of Systems: Gen: Denies fevers, night sweats, rigors, fatigue, malaise, weight loss/gain ENT: Denies congestion, throat pain, hearing loss Eyes: Denies acute visual changes CV: Denies CP, palpitations Pulmonary: SOB as per HPI - no cough, wheezing GI: Denies N/V, diarrhea, constipation Neuro: Denies acute or unilateral weakness, acute gait impairment, headache or acute visual changes Musculoskeletal: Denies joint pain, inflammation Endocrine: Denies polydipsia, polyuria Skin: Denies acute rashes or ulcers Physical Exam Physical Exam: General: AAO x 3, no distress ENT: No erythema or exudates, no thrush Eyes: SHANNAN, EOMI Head and neck: Normocephalic, atraumatic, No JVD, neck is supple. Chest/heart: Nontender, S1,2, RRR, no murmurs, no gallops Lungs: CTAB, no wheezing or crackles - air movement is compromised Abdomen: Nontender, nondistended, BS+ Neuro: AAO x 3, speech is clear, no unilateral weakness or loss of sensation, coordination intact Musculoskeletal: No joint inflammation, muscle tenderness, FROM Skin: No acute rashes or ulcers Extremities: No clubbing, cyanosis, edema Results & Data Vital Signs (Past 12 Hours) Vital Signs Temp Pulse Pulse Resp BP Pulse Ox 09/01/18 15:41 114 H 16 96 09/01/18 14:35 121 H 30 H 150/78 H 97 09/01/18 14:33 96 09/01/18 14:00 119 H 26 H 161/82 H 97 09/01/18 13:31 126 H 23 96 09/01/18 13:30 129 H 22 128/80 99 09/01/18 13:00 120 H 26 H 131/70 97 09/01/18 12:31 122 H 25 H 100 09/01/18 12:30 114 H 26 H 142/77 H 100 09/01/18 12:16 119 H 26 H 97 09/01/18 12:14 133/72 96 09/01/18 11:45 107 H 25 H 100 09/01/18 11:31 111 H 35 H 153/85 H 100 09/01/18 11:30 127 H 34 H 100 09/01/18 11:21 104 H 22 96 09/01/18 11:15 100 H 24 94 09/01/18 11:04 113 H 28 H 98 09/01/18 11:03 117 H 20 162/103 H 99 09/01/18 10:52 97.9 F 106 H 20 167/82 H 96 PG Care Time/CCT Total # of Minutes Spent Total Time Spent with Patient: Total time spent is greater than 50% in coordination of care (as documented) at patient's floor/unit and/or counseling patient: (1) Asthma exacerbation Asthma persistence: persistent Asthma severity: moderate Qualified Code(s): J45.41 - Moderate persistent asthma with (acute) exacerbation
[2018-09-01] MEDS ORDERED: ACETAMINOPHEN 325 MG TAB PO PRN (18:44)
[2018-09-01] MEDS ORDERED: LEVALBUTEROL 1.25MG/0.5ML NEB NEB PRN (18:44)
[2018-09-01] MEDS ORDERED: AZITHROMYCIN 250 MG TAB PO SCH (20:00)
[2018-09-01] MEDS: ALBUT/IPRATROP 3MG/0.5MG NEB 3 ML VIAL NEB SCH (20:27)
[2018-09-01] MEDS: methylPREDNISolone 40 MG in SYRINGE 0 ML IV SCH (21:31)
[2018-09-01] MEDS: PANTOprazole 40 MG TAB PO SCH (21:34)
[2018-09-01] MEDS: HEPARIN SOD 5,000 UNIT/0.5 ML VIAL SQ SCH (21:36)
[2018-09-02] MEDS: methylPREDNISolone 40 MG in SYRINGE 0 ML IV SCH ×4 (02:01→21:34)
[2018-09-02] MEDS: HEPARIN SOD 5,000 UNIT/0.5 ML VIAL SQ SCH ×3 (05:47→21:35)
[2018-09-02] MEDS: ALBUT/IPRATROP 3MG/0.5MG NEB 3 ML VIAL NEB SCH ×4 (06:35→19:19)
--- NOTE | 2018-09-02 08:44 | Hospitalist Progress Note ---
Date of Service September 02, 2018 Assessment & Plan (1) Asthma exacerbation: Treated twice in the outpt setting and has failed treatment. - continue steroids, nebs, azithromycin, O2 as needed - pulm consult - patient has been undergoing workup outpatient with both pulm and allergy. Her IgG was low and there is concern for hypogammaglobulinemia causing some of her problems such as frequent infections and ineffectiveness of vaccines. She has been on po steroids very frequently for years with an inability to tolerate coming of them. - with her history of pericarditis and blood clot, may want to consider referral to rheumatology outpatient (2) COPD (chronic obstructive pulmonary disease): with exacerbation as above (3) Mass: On CT: Indeterminate 9 mm mass of the inferolateral quadrant left breast. Correlate with mammogram. Patient should follow up outpatient (4) Hypertension: Continue diltiazem (5) Pericarditis: continue colchicine (6) DVT prophylaxis: heparin subq Subjective Ms. Reese is feeling better this morning however she had an episode of wheezing and sob while ambulating to the bathroom this morning. Review of Systems Review of Systems: All systems reviewed & are unremarkable except as noted in HPI & below Physical Exam Physical Exam: General: no distress Eyes: normal inspection, PERLL Respiratory: chest non tender, clear to auscultation, normal breath sounds, no respiratory distress, no accessory muscle use Cardiac: regular rate and rhythm, no rub or gallop, no murmur, no edema, no jvd GI/: active bowel sounds, no abd pain or tenderness, soft, non distended Extremities: normal range of motion, normal strength, non tender Neuro/Psych: alert and oriented x 3, normal mood and affect Skin: normal color, dry Results & Data Vital Signs (Past 12 Hours) Vital Signs Temp Pulse Resp BP Pulse Ox 09/02/18 08:04 36.4 C L 86 18 132/72 95 09/02/18 06:35 98 H 22 92 09/01/18 23:17 36.7 C 82 18 116/70 94 PG Care Time/CCT Total # of Minutes Spent Total Time Spent with Patient: Total time spent is greater than 50% in coordination of care (as documented) at patient's floor/unit and/or counseling patient: (1) Asthma exacerbation Asthma persistence: persistent Asthma severity: moderate Qualified Code(s): J45.41 - Moderate persistent asthma with (acute) exacerbation (2) COPD (chronic obstructive pulmonary disease) COPD type: chronic bronchitis Chronic bronchitis type: unspecified Qualified Code(s): J42 - Unspecified chronic bronchitis
[2018-09-02] MEDS: COLCHICINE 0.6 MG TAB PO SCH (09:16)
[2018-09-02] MEDS: dilTIAZem ER 120 MG CAPCR PO SCH (09:16)
[2018-09-02] MEDS: PANTOprazole 40 MG TAB PO SCH ×2 (09:16→21:35)
--- NOTE | 2018-09-02 12:59 | Pulmonary Consultation ---
Date of Consultation September 02, 2018 Assessment & Plan (1) Asthma exacerbation: Currently without evidence of active bronchospasm, not hypoxemic Recommend: 1. Complete 5 days of azithromycin 2. Taper steroids over 10 to 14 days 3. Consider addition of inhaled steroids as outpatient. Follow-up with Dr. Payne. Thank you for this consultation. Reconsult if needed Asthma persistence: persistent Asthma severity: moderate Qualified Code(s): J45.41 - Moderate persistent asthma with (acute) exacerbation History of Present Illness Reason for Consultation: Asthma Requesting Physician: Dr. Valdes Attending Physician: Rashid Okeefe MD History of Present Illness Patient is a 53-year-old woman with a history of asthma who follows with Dr. Payne. She was admitted yesterday with a several day history of intermittent shortness of breath and wheezing. He had no fevers or chills. She had minimal cough with clear sputum. Imaging studies showed no infiltrate, CT angiogram no evidence of pulmonary embolus. She says her shortness of breath and wheezing comes on for no apparent reason at fairly random intervals both at rest and with exertion. She has not required oxygen this admission. She says that sometimes her nebulizers help and sometimes they do not. She is currently breathing comfortably on room air does not appear dyspneic. She had a pulmonary embolus in May and was on Xarelto and then suffered a GI bleed. She has had work-up by an image editor to she says found no significant allergens. Allergies Allergy/AdvReac Type Severity Reaction Status Date / Time cephalexin AdvReac Unknown nausea Verified 09/01/18 11:56 morphine AdvReac Unknown nausea Verified 09/01/18 11:56 Home Medications Home Medications Medication Instructions Recorded Confirmed Type albuterol sulfate [ProAir HFA] 2 puff INHALATION BID PRN #0 aer 06/24/15 09/01/18 History ipratropium-albuterol 3 ml INHALATION QID PRN #0 inh 06/24/15 09/01/18 History levalbuterol tartrate [Xopenex HFA] 2 puff INHALATION Q4 PRN #0 06/24/15 09/01/18 History diltiazem HCl 120 mg PO DAILY 07/05/18 09/01/18 History prednisone 10 mg PO QAM 07/05/18 09/01/18 History pantoprazole 40 mg PO BID #60 tab 07/07/18 09/01/18 Rx colchicine 0.3 mg PO DAILY 09/01/18 09/01/18 History tiotropium bromide [Spiriva 2 puff INHALATION DAILY 09/01/18 09/01/18 History Respimat] Patient History Medical History Asthma COPD (chronic obstructive pulmonary disease) Lung nodules Mitral valve prolapse Surgical History S/P appendectomy S/P bronchoscopy S/P section S/P hysterectomy S/P sinus surgery S/P tonsillectomy Family History Other Lung cancer Social History Preferred Language: Niuean Communication Ability: Effective 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 Beliefs That Will Affect Care: None Current Living Situation: Spouse and Family Feels Safe at Home: Yes Safety Concerns: Feels Safe At This Time Smoking Status: Former smoker Do You Dip or Chew Tobacco: No Smoking End Date: at 28 years old Second Hand Exposure: No Hx Alcohol Use: Yes Alcohol type: beer and wine Hx Substance Use: No Review of Systems Review of Systems: All systems reviewed & are unremarkable except as noted in HPI & below Physical Exam Physical Exam: Awake alert speaking in full sentences no acute distress on room air Head normocephalic atraumatic Manfred EOMI sclera anicteric Neck supple no JVD adenopathy or bruits Chest clear to auscultation no wheezing rales or rhonchi breath sounds symmetrical no accessory muscle use Cardiac regular rhythm no murmurs rubs gallops Abdomen soft nontender no masses no organomegaly bowel sounds normoactive Extremities warm well perfused no cyanosis clubbing or edema distal pulses intact Skin no rash petechia or purpura Neurologic exam nonfocal Results & Data Vital Signs (Past 12 Hours) Vital Signs Temp Pulse Pulse Resp BP Pulse Ox 09/02/18 11:03 94 H 18 96 09/02/18 08:04 36.4 C L 86 18 132/72 95 09/02/18 06:35 98 H 22 92 Medications Administered Home Medications Medication Instructions Recorded Confirmed Last Taken albuterol sulfate [ProAir HFA] 2 puff INHALATION BID PRN #0 aer 06/24/15 09/01/18 1 Day Ago ~06/03/18 ipratropium-albuterol 3 ml INHALATION QID PRN #0 inh 06/24/15 09/01/18 1 Day Ago ~06/03/18 levalbuterol tartrate [Xopenex HFA] 2 puff INHALATION Q4 PRN #0 06/24/15 09/01/18 1 Day Ago ~06/03/18 diltiazem HCl 120 mg PO DAILY 07/05/18 09/01/18 Unknown prednisone 10 mg PO QAM 07/05/18 09/01/18 09/01/18 pantoprazole 40 mg PO BID #60 tab 07/07/18 09/01/18 09/01/18 colchicine 0.3 mg PO DAILY 09/01/18 09/01/18 09/01/18 tiotropium bromide [Spiriva 2 puff INHALATION DAILY 09/01/18 09/01/18 09/01/18 Respimat] Active Medications Generic Name Dose Route Start Last Admin Trade Name Freq PRN Reason Stop Dose Admin Albuterol 3 ml 09/01/18 20:00 09/02/18 11:01 Duoneb NEB 10/01/18 19:59 3 ml QIDR [place] Administration Azithromycin 500 mg 09/01/18 20:00 09/01/18 21:33 Zithromax PO 09/08/18 18:43 500 mg Q24H [place] Administration Colchicine 0.3 mg 09/02/18 09:00 09/02/18 09:16 Colcrys PO 10/02/18 08:59 0.3 mg DAILY [place] Administration Diltiazem HCl 120 mg 09/02/18 09:00 09/02/18 09:16 Tiazac PO 10/02/18 08:59 120 mg DAILY K[place]ON Administration Heparin Sodium (Porcine) 5,000 units 09/01/18 22:00 09/02/18 05:47 Heparin Sodium (Porcine) SQ 10/01/18 21:59 5,000 units Q8 [place] Administration Methylprednisolone 40 mg/ 0.64 mls @ 1.5 mls/min 09/01/18 20:00 09/02/18 09:15 Syringe IV 10/01/18 18:43 1.5 mls/min Q6H [place] Administration Pantoprazole Sodium 40 mg 09/01/18 21:00 09/02/18 09:16 Protonix PO 10/01/18 20:59 40 mg BID KENTON Administration
[2018-09-02] MEDS: AZITHROMYCIN 250 MG TAB PO SCH (17:12)
[2018-09-03] MEDS: ALBUT/IPRATROP 3MG/0.5MG NEB 3 ML VIAL NEB SCH ×5 (04:09→19:26)
[2018-09-03] MEDS: HEPARIN SOD 5,000 UNIT/0.5 ML VIAL SQ SCH ×3 (06:24→20:53)
[2018-09-03] MEDS: methylPREDNISolone 40 MG in SYRINGE 0 ML IV SCH ×2 (08:08→20:53)
[2018-09-03] MEDS: PANTOprazole 40 MG TAB PO SCH ×2 (08:08→20:53)
[2018-09-03] MEDS: COLCHICINE 0.6 MG TAB PO SCH (08:08)
[2018-09-03] MEDS: dilTIAZem ER 120 MG CAPCR PO SCH (08:08)
--- NOTE | 2018-09-03 11:51 | Hospitalist Progress Note ---
Date of Service September 03, 2018 Assessment & Plan (1) Asthma exacerbation: Treated twice in the outpt setting and has failed treatment. - continue steroids, nebs, azithromycin, O2 as needed, will add aformoterol nebulizers - CT chest without evidence of PE - pulm consult - patient has been undergoing workup outpatient with both pulm and allergy. Her IgG was low and there is concern for hypogammaglobulinemia causing some of her problems such as frequent infections and ineffectiveness of vaccines. She has been on po steroids very frequently for years with an inability to tolerate coming of them. - with her history of pericarditis and blood clot, may want to consider referral to rheumatology outpatient (2) COPD (chronic obstructive pulmonary disease): with exacerbation as above (3) Mass: On CT: Indeterminate 9 mm mass of the inferolateral quadrant left breast. Correlate with mammogram. Patient should follow up outpatient (4) Hypertension: Continue diltiazem (5) Pericarditis: continue colchicine (6) DVT prophylaxis: heparin subq Subjective Ms. Reese is feeling better when at rest, no wheezing or cough. However, she is very symptomatic with any ambulation. Nursing took her for a walk in [place] and while her sats were maintained she became significantly dyspneic and tachycardic with brief ambulation. She is not having chest pain but does describe feeling very "tight" in her chest with ambulation Review of Systems Review of Systems: All systems reviewed & are unremarkable except as noted in HPI & below Physical Exam Physical Exam: General: no distress Eyes: normal inspection, PERLL Respiratory: chest non tender, clear to auscultation, normal breath sounds, no respiratory distress, no accessory muscle use Cardiac: regular rate and rhythm, no rub or gallop, no murmur, no edema, no jvd GI/: active bowel sounds, no abd pain or tenderness, soft, non distended Extremities: normal range of motion, normal strength, non tender Neuro/Psych: alert and oriented x 3, normal mood and affect Skin: normal color, dry Results & Data Vital Signs (Past 12 Hours) Vital Signs Temp Pulse Resp BP Pulse Ox 09/03/18 11:31 86 16 95 09/03/18 08:31 36.4 C L 87 20 127/70 94 09/03/18 07:19 76 14 98 09/03/18 04:09 83 20 95 PG Care Time/CCT Total # of Minutes Spent Total Time Spent with Patient: Total time spent is greater than 50% in coordination of care (as documented) at patient's floor/unit and/or counseling patient: (1) Asthma exacerbation Asthma persistence: persistent Asthma severity: moderate Qualified Code(s): J45.41 - Moderate persistent asthma with (acute) exacerbation (2) COPD (chronic obstructive pulmonary disease) COPD type: chronic bronchitis Chronic bronchitis type: unspecified Qualified Code(s): J42 - Unspecified chronic bronchitis
[2018-09-03] MEDS: ARFORMOTEROL TART 15MCG/2ML VIAL INH SCH ×2 (14:16→19:25)
[2018-09-03] MEDS: BENZONATATE 100 MG CAPSULE PO PRN ×2 (16:43→23:21)
[2018-09-03] MEDS: AZITHROMYCIN 250 MG TAB PO SCH (17:44)
[2018-09-04] MEDS: HEPARIN SOD 5,000 UNIT/0.5 ML VIAL SQ SCH ×3 (05:08→20:24)
[2018-09-04] MEDS: ALBUT/IPRATROP 3MG/0.5MG NEB 3 ML VIAL NEB SCH ×5 (05:09→19:36)
[2018-09-04 06:10] LABS: Hematocrit (blood only) 38.2 % (37-47); Mean Corpuscular Hgb Conc 31.4 g/dL (32-36); Mean Platelet Volume 9.2 fL (7.4-10.4); Platelet Count 293 K/uL (130-400); RDW Coefficient of Variation 18.6 % (11.5-14.5); RDW Standard Deviation 60.3 fL (36.4-46.3); Red Blood Count 4.34 M/uL (4.2-5.4); White Blood Count 13.09 K/uL (4.8-10.8)
[2018-09-04] MEDS: ARFORMOTEROL TART 15MCG/2ML VIAL INH SCH ×2 (07:03→19:35)
[2018-09-04] MEDS: dilTIAZem ER 120 MG CAPCR PO SCH (07:46)
[2018-09-04] MEDS: COLCHICINE 0.6 MG TAB PO SCH (07:46)
[2018-09-04] MEDS: methylPREDNISolone 40 MG in SYRINGE 0 ML IV SCH ×2 (07:46→20:19)
[2018-09-04] MEDS: PANTOprazole 40 MG TAB PO SCH ×2 (07:46→20:19)
[2018-09-04 08:45] LABS: BUN Creatinine Ratio 23.1 (10-20); Calcium 9.2 mg/dl (8.5-10.1); Creatinine Clr Calc Pharmacy 75.3 ml/min; Est GFR (African American) 101.5; Est GFR (Non-African American) 87.5; Potassium 3.8 mmol/L (3.5-5.1)
[2018-09-04] MEDS: BENZONATATE 100 MG CAPSULE PO PRN (08:50)
--- NOTE | 2018-09-04 14:44 | Hospitalist Progress Note ---
Date of Service September 04, 2018 Assessment & Plan (1) Asthma exacerbation: - Failed outpt treatment; pt is stable at rest but has increased SOB, chest tightness with exertion. - CT PE was negative. - Pulm consulted, appreciate input. - Solu-medrol 40 mg IV BID - taper steroids as tolerated. - Duonebs QID scheduled, Arformoterol BID scheduled with Xopenex prn. - Azithromycin for coverage of PNA. - Has been undergoing workup outpatient with both pulm and allergy. Her IgG was low and there is concern for hypogammaglobulinemia causing some of her problems such as frequent infections and ineffectiveness of vaccines. - History of pericarditis and emboli -- may want to consider referral to rheumatology outpatient. (2) Left-sided chest pain: - Unclear if pain is related to asthma exacerbation vs. cardiac source; only occurs with exertion. - EKG was negative; Trop negative, will trend x 3. - Cardiology consulted; has been evaluated by Dr. Sher in the past. (3) COPD (chronic obstructive pulmonary disease): - Acute asthma exacerbation as noted above. (4) Mass: - Indeterminate 9 mm mass of the inferolateral quadrant left breast. Correlate with mammogram. - Will need outpatient follow up. (5) Hypertension: - Continue home Diltiazem as prescribed. (6) Pericarditis: - Continue home Colchicine as prescribed. (7) DVT prophylaxis: - Heparin subQ. Dispo: Med/surg for treatment of asthma exacerbation; discharge pending improvement in SOB/chest tightness with exertion. Supervising Physician Co-Signing Physician Notes Attending Attestation - Chart reviewed, care plan d/w ESTEFANÍA Harmon. I agree w/ the keenan components of her documentation. Cont care for asthma exacerbation. Agree w/ w/u for chest pain. Vitals/labs remain stable. Yaakov Judge MD Subjective Pt. has ongoing SOB, left sided chest tightness with exertion. She is stable at rest. Chest tightness is not typical with her asthma exacerbations. She has been evaluated by cardiology in the past, cath was considered but procedure was not completed. Will consult cardiology for evaluation. Review of Systems Review of Systems: All systems reviewed & are unremarkable except as noted in HPI & below Constitutional: no fever, no chills, no fatigue, no weakness and no anorexia Respiratory: + dyspnea on exertion; no cough, no dyspnea and no wheezing Cardiovascular: + chest pain with activity; no chest pain, no chest pain at rest, no radiating jaw, neck or arm pain, no palpitations, no lightheadedness, no syncope and no edema Gastrointestinal: no abdominal pain, no nausea, no vomiting, no constipation and no diarrhea/loose stools Genitourinary: no difficulty urinating Musculoskeletal: no back pain and no joint pain Allergy / Immunological: no rash Physical Exam Physical Exam: General: Resting comfortably in no apparent distress HEENT: NC/AT; PERRLA with EOMI; [place] conjunctiva, MMM. No erythema of posterior pharynx Neck: Supple and nontender Cardiac: RRR Lungs: CTA bilaterally; No rhonchi, wheezing, or rales Abdomen: Bowel normoactive X 4; Nontender to palpation Extremities: Warm. No edema present Neuro: No focal weakness Skin: No rash Results & Data Vital Signs (Past 12 Hours) Vital Signs Temp Pulse Resp BP Pulse Ox 09/04/18 11:16 96 H 18 98 09/04/18 07:14 36.5 C 83 18 129/80 98 09/04/18 07:04 71 18 98 09/04/18 05:10 87 18 97 Laboratory Results 09/04/18 09/04/18 09/04/18 Range/Units 09:59 05:53 05:49 WBC 13.09 H (4.8-10.8) K/uL RBC 4.34 (4.2-5.4) M/uL Hgb 12.0 (12.0-16.0) g/dL Hct 38.2 (37-47) % MCV 88.0 (80-100) fL MCH 27.6 (25-34) pg MCHC 31.4 L (32-36) g/dL RDW Std Deviation 60.3 H (36.4-46.3) fL RDW Coeff of Lizeth 18.6 H (11.5-14.5) % Plt Count 293 (130-400) K/uL MPV 9.2 (7.4-10.4) fL Sodium 141 (136-145) mmol/L Potassium 3.8 (3.5-5.1) mmol/L Chloride 105 (98-107) mmol/L Carbon Dioxide 27 (21-32) mmol/L Anion Gap 9.0 (3-11) BUN 18 (7-18) mg/dl Creatinine 0.77 (0.6-1.2) mg/dl Est Cr Clr Drug Dosing 75.3 ml/min Est GFR ( Amer) 101.5 Est GFR (Non-Af Amer) 87.5 BUN/Creatinine Ratio 23.1 H (10-20) Glucose 147 H (70-99) mg/dl Calcium 9.2 (8.5-10.1) mg/dl Troponin I < 0.015 (0-0.045) ng/ml PG Care Time/CCT Total # of Minutes Spent Total Time Spent with Patient: Total time spent is greater than 50% in coordination of care (as documented) at patient's floor/unit and/or counseling patient: (1) Asthma exacerbation Asthma persistence: persistent Asthma severity: moderate Qualified Code(s): J45.41 - Moderate persistent asthma with (acute) exacerbation (2) COPD (chronic obstructive pulmonary disease) COPD type: chronic bronchitis Chronic bronchitis type: unspecified Qualified Code(s): J42 - Unspecified chronic bronchitis
--- NOTE | 2018-09-04 15:45 | Cardiology Consultation ---
Date of Consultation September 04, 2018 Assessment & Plan (1) Left-sided chest pain: Patient does have symptoms of exertional chest pain. The symptom itself is somewhat atypical and is also reproducible on examination. She has some pleuritic symptoms and positional symptoms as well. I think the likelihood that this represents angina is low. However, she has had frequent and fairly refractory symptoms of dyspnea as well. This could represent an anginal equivalent. At rest she feels quite good. In the past there has been some interest and performing an ischemic evaluation. It seems that this could be performed with dobutamine echocardiography. Alternatively right and left heart catheterization could be considered. At this point, I do not feel that she needs further testing based on the describe symptoms. However, will discuss this with her primary assistant corporate controller tomorrow and will continue to monitor her symptoms while she is inpatient. Present on Admission?: Yes (2) Dyspnea: Her lung examination was fairly benign. Her CT scan did not suggest pulmonary edema but she did have some bronchial changes concerning for bronchitis or reactive airway disease. She seems to be feeling somewhat better overall. Dyspnea on exertion could be an anginal equivalent, but I think a more likely etiology currently is primary pulmonary process. Present on Admission?: Yes History of Present Illness Reason for Consultation: Chest pain, dyspnea Requesting Physician: Eden Attending Physician: Yaakov Judge History of Present Illness The patient is a 53-year-old woman with a long history of COPD and asthma was admitted for worsening shortness of breath. Patient states that for several months now she has been struggling with breathing difficulty. Despite outpatient treatment she continues to have marked dyspnea on exertion. In May of this year she did suffer a pulmonary embolus and was briefly anticoagulated. However, she did suffer a gastrointestinal hemorrhage in the anticoagulation was stopped. Currently, the patient states that she has dyspnea with activity. This can be mild activity such as transmitting a room. This not only produces a sense of dyspnea but a sense of chest �pain� in the left pectoral and axillary area. She is adamant that this is not really �pain� but more of a pressure or a tightness. This symptom can also occur when lying on her left side, taking deep breaths or even palpating that area. At rest, she claims to be feeling quite well. She states that without activity she feels good and has no symptoms of chest discomfort or breathing difficulty. She has not report orthopnea. She has not noticed any swelling in her lower extremities. She did not report dizziness or lightheadedness or sense of tachycardia or palpitations. Allergies Allergy/AdvReac Type Severity Reaction Status Date / Time cephalexin AdvReac Unknown nausea Verified 09/01/18 11:56 morphine AdvReac Unknown nausea Verified 09/01/18 11:56 Home Medications Home Medications Medication Instructions Recorded Confirmed Type albuterol sulfate [ProAir HFA] 2 puff INHALATION BID PRN #0 aer 06/24/15 09/01/18 History ipratropium-albuterol 3 ml INHALATION QID PRN #0 inh 06/24/15 09/01/18 History levalbuterol tartrate [Xopenex HFA] 2 puff INHALATION Q4 PRN #0 06/24/15 09/01/18 History diltiazem HCl 120 mg PO DAILY 07/05/18 09/01/18 History prednisone 10 mg PO QAM 07/05/18 09/01/18 History pantoprazole 40 mg PO BID #60 tab 07/07/18 09/01/18 Rx colchicine 0.3 mg PO DAILY 09/01/18 09/01/18 History tiotropium bromide [Spiriva 2 puff INHALATION DAILY 09/01/18 09/01/18 History Respimat] Patient History Medical History Asthma COPD (chronic obstructive pulmonary disease) Lung nodules Mitral valve prolapse Surgical History S/P appendectomy S/P bronchoscopy S/P section S/P hysterectomy S/P sinus surgery S/P tonsillectomy Family History Other Lung cancer Social History Preferred Language: Maltese Communication Ability: Effective 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 She does have frequent coughing. She does report some chest discomfort with coughing. Coughing is much improved with the use of antitussives. Physical Exam Physical Exam: She is alert and oriented x3. Mood affect appear normal. She answered all questions appropriately. HEENT: Sclerae are anicteric. Pupils are equal and reactive to light and accommodation. Extraocular movements were intact. Neuro: Cranial nerves intact Neck: Examination of the submandibular region did not reveal any significant lymphadenopathy. Carotids are palpable bilaterally and free of bruits on auscultation. There was no evidence of jugular venous distention. The thyroid was not enlarged. Lungs: Lungs are clear to auscultation bilaterally. There are no rales wheezes or rhonchi. She has normal respiratory effort without use of accessory muscles. There is normal pulmonary excursion. Cardiac: The rhythm was regular. S1 and S2 were normal. There are no murmurs on examination. The PMI was not markedly displaced on palpation. Abdomen: The abdomen was soft and nontender. Extremities: Patient has bilateral radial pulses that are equal in intensity. There is no evidence cyanosis or clubbing. There was no evidence of significant peripheral edema bilaterally. Skin: There are no rashes noted on examination today. Results & Data Vital Signs (Past 12 Hours) Vital Signs Temp Pulse Resp BP Pulse Ox 09/04/18 14:55 36.7 C 80 18 138/77 96 09/04/18 11:16 96 H 18 98 09/04/18 07:14 36.5 C 83 18 129/80 98 09/04/18 07:04 71 18 98 09/04/18 05:10 87 18 97 Laboratory Results Abnormal Lab Results 09/04/18 09/04/18 09/04/18 05:49 05:53 09:59 WBC 13.09 H RBC 4.34 Hgb 12.0 Hct 38.2 MCV 88.0 MCH 27.6 MCHC 31.4 L RDW Std Deviation 60.3 H RDW Coeff of Lizeth 18.6 H Plt Count 293 MPV 9.2 Sodium 141 Potassium 3.8 Chloride 105 Carbon Dioxide 27 Anion Gap 9.0 BUN 18 Creatinine 0.77 Est Cr Clr Drug Dosing 75.3 Est GFR ( Amer) 101.5 Est GFR (Non-Af Amer) 87.5 BUN/Creatinine Ratio 23.1 H Glucose 147 H Calcium 9.2 Troponin I < 0.015 Diagnostic Findings Chest CTA performed this admission did not reveal any evidence of pulmonary embolus or pulmonary edema Echocardiogram performed in May 2018 revealed preserved LV systolic function with regional wall motion abnormality involving the inferolateral basal wall. No significant valvular heart disease. (1) Dyspnea Dyspnea type: shortness of breath Qualified Code(s): R06.02 - Shortness of breath; R06.00 - Dyspnea, unspecified; R06.01 - Orthopnea
[2018-09-04] MEDS: AZITHROMYCIN 250 MG TAB PO SCH (17:00)
[2018-09-05] MEDS: ALBUT/IPRATROP 3MG/0.5MG NEB 3 ML VIAL NEB SCH ×5 (05:14→19:43)
[2018-09-05] MEDS: HEPARIN SOD 5,000 UNIT/0.5 ML VIAL SQ SCH ×3 (05:22→19:58)
[2018-09-05] MEDS: ARFORMOTEROL TART 15MCG/2ML VIAL INH SCH ×2 (07:12→19:42)
[2018-09-05 07:54] LABS: Hematocrit (blood only) 37.1 % (37-47); Hemoglobin 12.1 g/dL (12.0-16.0); Mean Corpuscular Hgb Conc 32.6 g/dL (32-36); Mean Corpuscular Volume 86.5 fL (80-100); Mean Platelet Volume 9.2 fL (7.4-10.4); Platelet Count 312 K/uL (130-400); RDW Coefficient of Variation 18.9 % (11.5-14.5); RDW Standard Deviation 59.3 fL (36.4-46.3); Red Blood Count 4.29 M/uL (4.2-5.4); White Blood Count 13.26 K/uL (4.8-10.8)
[2018-09-05 08:25] LABS: BUN Creatinine Ratio 24.5 (10-20); Calcium 9.3 mg/dl (8.5-10.1); Creatinine Clr Calc Pharmacy 73.4 ml/min; Est GFR (African American) 98.4; Est GFR (Non-African American) 84.9; Potassium 3.7 mmol/L (3.5-5.1)
[2018-09-05] MEDS: COLCHICINE 0.6 MG TAB PO SCH (08:29)
[2018-09-05] MEDS: PANTOprazole 40 MG TAB PO SCH ×2 (08:30→19:55)
[2018-09-05] MEDS: dilTIAZem ER 120 MG CAPCR PO SCH (08:30)
[2018-09-05] MEDS: methylPREDNISolone 40 MG in SYRINGE 0 ML IV SCH ×2 (08:31→19:55)
--- NOTE | 2018-09-05 09:05 | Cardiology Progress Note ---
Date of Service September 05, 2018 Subjective She notes she feels better this morning was able to do one lap around the hallway with only having to stop once yesterday she had a stop 2 or 3 times. She does note that when she climbs stairs she has tightness in her chest. She notes this is significantly worse compared to before she became sick in May 2018 she notes last fall in the early winter she was very active without any chest tightness. She is been treated as an outpatient and failed to therapy for her underlying lung disease. She has been admitted and is feeling better. Her troponins are negative x3 and her BN P was normal. She is had no further dark stools or black stools. As you know she had a GI bleed in June 2018 secondary to Xarelto and ulcer disease. She describes her chest tightness that is left-sided. there is no radiation to her neck,jaw ,back,or arm. she denies any palpitations lightheadedness or dizziness. The rest of a complete review of systems is negative. Results & Data Vital Signs (Past 12 Hours) Vital Signs Temp Pulse Resp BP Pulse Ox 09/05/18 08:00 36.5 C 73 20 147/78 H 95 09/05/18 07:12 79 16 97 09/05/18 05:15 81 16 95 09/04/18 23:23 36.7 C 78 18 132/71 98 she is awake alert oriented x3 she is in no acute distress. HEENT: 2+ carotid obstruction no evidence of carotid bruits jugular venous pressure appeared normal her hearing was normal Lungs: Clear to auscultation bilaterally no rales rhonchi or wheezing Heart regular rate and rhythm no appreciable murmurs rubs or gallops Abdomen: Soft nontender nondistended positive bowel sounds Extremities no clubbing cyanosis or edema Psychiatric: Her affect appeared appropriate Neuro: She is awake alert and oriented x3 and grossly nonfocal Impressions: 1. Asthma exacerbation 2. Progressive shortness of breath and chest tightness with activity with a normal outpatient echocardiogram 3. History of a GI bleed for 2019 secondary to Xarelto and peptic ulcer disease with no recurrence 4. Possible outpatient pericarditis 5. 9 mm lesion in her breast awaiting mammography As I discussed with her in detail I think she has 2 options at this point to rule in or rule out coronary artery disease. She continues to describe progressive chest tightness and shortness of breath with activity even outside of the days that she is wheezing. In light of that I discussed with her the risks and benefits of dobutamine stress echo versus cardiac catheterization. I discussed the sensitivity and specificity of the study. Given the fact that this is her third admission since May I think it is imperative to rule out coronary artery disease. Therefore we will proceed with a cardiac catheterization to define her coronary anatomy and measure her right heart pressures. I discussed the risks and benefits of cardiac catheterization in detail. Risks including but not limited to bleeding or infection at the puncture site. Damage to her radial or femoral artery. There is a 1 in the thousand risk of heart attack, stroke, or dying with the procedure. There is a risk of contrast-induced nephropathy although she has normal creatinine tabetic. There is a risk of an allergic reaction to contrast but she has had multiple CAT scans in the past with contrast without any issues. This was discussed with Dr. Pavon of interventional cardiology. She did have breakfast this morning and stopped eating around 8 AM. we will arrange for her catheterization this afternoon she will remain n.p.o.
[2018-09-05] MEDS ORDERED: fentaNYL citrate 100 MCG/2 ML VIAL ONE (12:59)
[2018-09-05] MEDS ORDERED: MIDAZOLAM HCL 1 MG/ML 2ML VIAL ONE (12:59)
[2018-09-05] MEDS ORDERED: HEPARIN (PORCINE) 1000 UNIT/ML 10 ML (CATH LAB USE ONLY) ONE (12:59)
[2018-09-05] MEDS ORDERED: NiCARDipine HCL INJ 2.5 MG/ML 10 ML AMP ONE (12:59)
[2018-09-05] MEDS ORDERED: NITROGLYCERIN/D5W 100MCG/ML 20ML SYR ONE (13:00)
--- NOTE | 2018-09-05 13:50 | Pre Anesthesia Assessment ---
Date of Service September 05, 2018 Pre Sedation Assessment Vital Signs Temp Pulse Resp BP Pulse Ox 09/05/18 11:24 80 16 97 09/05/18 08:00 36.5 C 73 20 147/78 H 95 09/05/18 07:12 79 16 97 09/05/18 05:15 81 16 95 09/04/18 23:23 36.7 C 78 18 132/71 98 09/04/18 19:37 88 18 98 09/04/18 14:55 36.7 C 80 18 138/77 96 Cardiovascular RRR, no murmur, no edema Respiratory normal respiratory effort, lungs clear to auscultation Pre-Sedation Airway Assessment Smoking Status: Former smoker Hx Sleep Apnea: No Hx Difficult Intubation: No Short, Thick Neck: No Thyromental Distance: > or= 3.5 Finger Breadths Oral Cavity: + WNL Mallampati Class: III Procedure Planning Contraindications for Sedation: none Current Medications Reviewed: Yes Notes The planned sedation has been discussed with the patient. Informed Consent was obtained. I have identified the patient, determined the appropriateness of sedation and have assessed the patient immediately prior to the procedure. All medicine(s) and interventions are by my order.
--- NOTE | 2018-09-05 13:52 | Cardiac Catheterization ---
Cardiac Cath Procedure Full Procedure Date September 05, 2018 Pre-Procedure Diagnosis Pre-Procedure Diagnosis: Acute Coronary Syndrome AUC Score AUC Score: 7 Post-Procedure Diagnosis Post-Procedure Diagnosis: Normal Coronary Arteries and Normal Intracardiac Pressures Procedure(s) Performed Procedure(s) Performed: Coronary Angiography, Left Heart Cath and Right Heart Cath Payloader Machine Operator George Pavon MD Conductor/Brakeman(s) Luis Estimated Blood Loss Estimated Blood Loss: 5 Medication(s) Medication(s): Fentanyl, Heparin, Lidocaine 1%, Nicardipine, Nitroglycerin and Versed Summary of Findings Indication: Atypical chest pain, exertional shortness of breath Access: 6 Fr slender right radial artery, 6 Fr slender right antecubital vein Catheters: [place], 6 Fr [place] Findings: LM -angiographically normal LAD -moderate caliber vessel, mild distal luminal irregularities, tapers as wraps around apex, gives off 2 small diagonals. Circumflex -large caliber vessel, angiographically normal, gives off large OM 2 and left PLB without significant disease RCA -dominant, moderate caliber, angiographically normal RA 2 RV 21/2 PA 14/2 (8) PAWP 4 LVEDP 9 PaSat 71% AoSat 93% Mino CO/CI 5.8/3.5 Thermo CO/CI 4.3/2.5 Arterial Closure: TR band Summary: 1. Essentially normal coronary arteries 2. Normal left and right-sided filling pressures 3. Preserved cardiac output 4. Normal pulmonary artery pressures Recommendations: Continued ASCVD risk factor modification Continued evaluation for noncardiac causes of patient's presenting symptoms. Hemodynamics Rest Ao:: 121/69/92 Final Ao: 124/68/95 LV: 114/9 Recommendations Recommendations: Management Recommendatons Specimens Specimens: None Radiation Exposure (mGy) 603 Contrast (mls) 35 Fluids (cc crystalloids) Fluids (cc crystalloids): 47 Drains Drains: None Anesthesia Moderate Procedural Complication(s) None Disposition PCU ACC Data: Pantograph Setter Cardiac Status Clinical evaluation leading to the procedure CAD Presenation: Sx unlikely to be ischemic Anginal Classification: CCS III Heart Failure: No Cardiogenic Shock within 24 Hours: No Cardiac Arrest within 24 Hours: No Imaging Studies Past 6 Months: Yes Stress Studies Past 6 Months: No Diagnostic Physicians Name: George Pavon MD Status: Elective Closure Device Percutaneous Entry Location: Radial Closure Device: Radial Band Recommendations: Management Recommendatons Intraprocedure Events Significant Disection: No Perforation: No
[2018-09-05] MEDS ORDERED: ONDANSETRON INJ 2 MG/ML 2 ML VIAL ONE (14:10)
[2018-09-05 14:32] LABS: iSTAT Arterial Blood Gas HCO3 22 meg/L (19-24); iSTAT Arterial Blood Gas HCO3 24 meg/L (19-24); iSTAT Arterial Blood Gas pCO2 33 mmHg (35-46); iSTAT Arterial Blood Gas pCO2 39 mmHg (35-46); iSTAT Arterial Blood Gas pH 7.39 (7.35-7.45); iSTAT Arterial Blood Gas pH 7.44 (7.35-7.45); iSTAT Carbon Dioxide 23 mEq/l (24-31); iSTAT Carbon Dioxide 25 mEq/l (24-31)
--- NOTE | 2018-09-05 14:34 | Post Anesthesia Assessment ---
Date of Service September 05, 2018 Post Sedation Assessment Vital Signs Temp Pulse Resp BP Pulse Ox 09/05/18 11:24 80 16 97 09/05/18 08:00 36.5 C 73 20 147/78 H 95 09/05/18 07:12 79 16 97 09/05/18 05:15 81 16 95 09/04/18 23:23 36.7 C 78 18 132/71 98 09/04/18 19:37 88 18 98 09/04/18 14:55 36.7 C 80 18 138/77 96 Recovery Score Activity: Moves 4 extremities Respiration: Deep Breath/Cough Circulation: +/-20% PreAnes Value Consciousness: Fully Awake Oxygen Saturation: O2 needed for >90% Discharge Sedation Level of Care: Fast Track Phase II Post Sedation Plan On clinical assessment, the patient appears to have tolerated the sedation without complications. Patient is recovering as anticipated. Patient will continue to be monitored by nursing and may be discharged when sedation discharge criteria are met per below protocol. Upon Completions of procedure and additional 15 minutes continue every 5 minute vital signs and the P.A.R. score; then discharge to a Phase I or Fast Track to Phase II per the following guidelines: * Discharge Patient to appropriate Phase II area if PAR is 8 or greater or return to pre- procedure baseline. The post - procedure orders will be as directed. * If PAR score is less than 8 or not return to pre-procedure baseline then patient will follow Phase I monitoring till PAR is reached for Phase II. The Phase I may be done in procedure room or may call to secure a Phase I area. * �If naloxone or flumazenil are used for reversal, hold in Phase I for continued monitoring from when last reversal dose was given for a minimum of 60 minutes or longer pending the nurse and/or physician discretion of patient condition before discharge to Phase II.� Please call the Sedation Physician to re-evaluate and complete post-note for discharge to Phase II area. Do NOT discharge from procedure sedation or Phase 1 until post- sedation evaluation note is complete by procedure /sedation MD Sedation Discharge Instructions to be given to the patient at discharge to home.
--- NOTE | 2018-09-05 17:57 | Hospitalist Progress Note ---
Date of Service September 05, 2018 Assessment & Plan (1) Asthma exacerbation: - Failed outpt treatment; pt stable at rest but has SOB, chest tightness with exertion (very minimal improvement over last 24 hours) - CT PE was negative. - Pulm consulted, appreciate input. - Solu-medrol 40 mg IV BID - taper to Pred 60 mg daily on 09/06. - Duonebs QID scheduled, Arformoterol BID scheduled; Xopenex prn. - Azithromycin for coverage of PNA. - Has been undergoing workup outpatient with both pulm and allergy. Her IgG was low and there is concern for hypogammaglobulinemia causing some of her problems such as frequent infections and ineffectiveness of vaccines. - History of pericarditis and emboli -- may want to consider referral to rheumatology outpatient. (2) Left-sided chest pain: - Unclear if pain is related to pulmonary source vs. cardiac. - EKG was negative; Trop negative x 3. - Cardiology consulted, appreciate input. Cardiac cath was negative today. - Treatment for asthma exacerbation as noted above. (3) COPD (chronic obstructive pulmonary disease): - Acute asthma exacerbation as noted above. (4) Mass: - Indeterminate 9 mm mass of the inferolateral quadrant left breast. Correlate with mammogram. - Will need outpatient follow up. (5) Hypertension: - Continue home Diltiazem as prescribed. (6) Pericarditis: - Continue home Colchicine as prescribed. (7) DVT prophylaxis: - Heparin subQ. Dispo: Med/surg for treatment of asthma exacerbation; discharge on 09/06 pending improvement in chest tightness/SOB with exertion. Supervising Physician Co-Signing Physician Notes Attending Attestation - Chart reviewed, care plan d/w ESTEFANÍA Harmon. I agree w/ the keenan components of her documentation. Cont care for asthma exacerbation. Wean steroids as tolerated. Cardiac cath noted to be negative/normal (done due to chest pain). Hopefully d/c tomorrow. Yaakov Judge MD Subjective Pt. has ongoing chest tightness and SOB with exertion -- symptoms are mildly improved but pt. did have to stop a few times during her walk around [place]. Cardiac cath was negative. Will convert to PO steroids on 09/06 and evaluate for discharge planning. Review of Systems Review of Systems: All systems reviewed & are unremarkable except as noted in HPI & below Constitutional: no fever, no chills, no fatigue, no weakness and no anorexia Respiratory: + dyspnea on exertion; no cough, no dyspnea and no wheezing Cardiovascular: + chest pain with activity; no chest pain at rest, no radiating jaw, neck or arm pain, no lightheadedness, no syncope and no edema Gastrointestinal: no abdominal pain, no nausea, no vomiting, no constipation and no diarrhea/loose stools Genitourinary: no difficulty urinating Musculoskeletal: no back pain and no joint pain Integumentary: no non-healing lesions Allergy / Immunological: no rash Physical Exam Physical Exam: General: Resting comfortably in no apparent distress HEENT: NC/AT; PERRLA with EOMI; [place] conjunctiva, MMM. No erythema of posterior pharynx Neck: Supple and nontender Cardiac: RRR Lungs: CTA bilaterally; No rhonchi, wheezing, or rales Abdomen: Bowel normoactive X 4; Nontender to palpation Extremities: Warm. No edema present Neuro: No focal weakness Skin: No rash Results & Data Vital Signs (Past 12 Hours) Vital Signs Temp Pulse Pulse Pulse Resp BP Pulse Ox 09/05/18 15:19 65 16 96 09/05/18 14:47 36.4 C L 68 68 18 117/65 93 09/05/18 11:24 80 16 97 09/05/18 08:00 36.5 C 73 20 147/78 H 95 09/05/18 07:12 79 16 97 Laboratory Results 09/05/18 09/05/18 09/05/18 Range/Units 14:10 14:10 07:19 WBC 13.26 H (4.8-10.8) K/uL RBC 4.29 (4.2-5.4) M/uL Hgb 12.1 (12.0-16.0) g/dL Hct 37.1 (37-47) % MCV 86.5 (80-100) fL MCH 28.2 (25-34) pg MCHC 32.6 (32-36) g/dL RDW Std Deviation 59.3 H (36.4-46.3) fL RDW Coeff of Lizeth 18.9 H (11.5-14.5) % Plt Count 312 (130-400) K/uL MPV 9.2 (7.4-10.4) fL POC pH 7.44 7.39 (7.35-7.45) POC pCO2 33 L 39 (35-46) mmHg POC pO2 65 L 37 L (80-95) mmHg POC HCO3 22 24 (19-24) marie/L POC Total CO2 23 L 25 (24-31) mEq/l POC Base Excess -2.0 -1.0 (-9-1.8) marie/L POC ABG O2 Sat 93.0 71.0 L (90-95) % Sodium (136-145) mmol/L Potassium (3.5-5.1) mmol/L Chloride (98-107) mmol/L Carbon Dioxide (21-32) mmol/L Anion Gap (3-11) BUN (7-18) mg/dl Creatinine (0.6-1.2) mg/dl Est Cr Clr Drug Dosing ml/min Est GFR ( Amer) Est GFR (Non-Af Amer) BUN/Creatinine Ratio (10-20) Glucose (70-99) mg/dl Calcium (8.5-10.1) mg/dl NT-Pro-B Natriuret Pep (0-900) pg/ml 09/05/18 Range/Units 07:19 WBC (4.8-10.8) K/uL RBC (4.2-5.4) M/uL Hgb (12.0-16.0) g/dL Hct (37-47) % MCV (80-100) fL MCH (25-34) pg MCHC (32-36) g/dL RDW Std Deviation (36.4-46.3) fL RDW Coeff of Lizeth (11.5-14.5) % Plt Count (130-400) K/uL MPV (7.4-10.4) fL POC pH (7.35-7.45) POC pCO2 (35-46) mmHg POC pO2 (80-95) mmHg POC HCO3 (19-24) marie/L POC Total CO2 (24-31) mEq/l POC Base Excess (-9-1.8) marie/L POC ABG O2 Sat (90-95) % Sodium 140 (136-145) mmol/L Potassium 3.7 (3.5-5.1) mmol/L Chloride 105 (98-107) mmol/L Carbon Dioxide 25 (21-32) mmol/L Anion Gap 10.0 (3-11) BUN 19 H (7-18) mg/dl Creatinine 0.79 (0.6-1.2) mg/dl Est Cr Clr Drug Dosing 73.4 ml/min Est GFR ( Amer) 98.4 Est GFR (Non-Af Amer) 84.9 BUN/Creatinine Ratio 24.5 H (10-20) Glucose 112 H (70-99) mg/dl Calcium 9.3 (8.5-10.1) mg/dl NT-Pro-B Natriuret Pep 120 (0-900) pg/ml PG Care Time/CCT Total # of Minutes Spent Total Time Spent with Patient: Total time spent is greater than 50% in coordination of care (as documented) at patient's floor/unit and/or counseling patient: (1) Asthma exacerbation Asthma persistence: persistent Asthma severity: moderate Qualified Code(s): J45.41 - Moderate persistent asthma with (acute) exacerbation (2) COPD (chronic obstructive pulmonary disease) COPD type: chronic bronchitis Chronic bronchitis type: unspecified Qualified Code(s): J42 - Unspecified chronic bronchitis
[2018-09-05] MEDS: AZITHROMYCIN 250 MG TAB PO SCH (19:07)
[2018-09-06] MEDS: HEPARIN SOD 5,000 UNIT/0.5 ML VIAL SQ SCH (05:15)
[2018-09-06] MEDS: ARFORMOTEROL TART 15MCG/2ML VIAL INH SCH (07:06)
[2018-09-06] MEDS: ALBUT/IPRATROP 3MG/0.5MG NEB 3 ML VIAL NEB SCH ×2 (07:07→11:51)
[2018-09-06 07:17] LABS: BUN Creatinine Ratio 27.9 (10-20); Calcium 9.2 mg/dl (8.5-10.1); Creatinine Clr Calc Pharmacy 72.5 ml/min; Est GFR (African American) 96.9; Est GFR (Non-African American) 83.6; Potassium 4.3 mmol/L (3.5-5.1)
[2018-09-06] MEDS: PANTOprazole 40 MG TAB PO SCH (08:14)
[2018-09-06] MEDS: COLCHICINE 0.6 MG TAB PO SCH (08:15)
[2018-09-06] MEDS: dilTIAZem ER 120 MG CAPCR PO SCH (08:15)
[2018-09-06] MEDS ORDERED: predniSONE 20 MG TAB PO SCH (09:00)
--- NOTE | 2018-09-06 09:00 | Cardiology Progress Note ---
Date of Service Feeling much better this morning. She is hoping to go home. She is been able to ambulate with less dyspnea. We did review potential triggers. She denies an y chest pain or chest pressure. Lightheadedness or dizziness. She denies any wrist discomfort status post catheterization September 06, 2018 Results & Data Vital Signs (Past 12 Hours) Vital Signs Temp Pulse Pulse Resp BP Pulse Ox 09/06/18 07:54 37.0 C 74 18 139/78 98 09/06/18 07:08 67 16 95 09/06/18 04:27 36.5 C 71 17 132/61 97 09/05/18 22:49 36.9 C 71 18 127/70 95 Findings: LM -angiographically normal LAD -moderate caliber vessel, mild distal luminal irregularities, tapers as wraps around apex, gives off 2 small diagonals. Circumflex -large caliber vessel, angiographically normal, gives off large OM 2 and left PLB without significant disease RCA -dominant, moderate caliber, angiographically normal RA 2 RV 21/2 PA 14/2 (8) PAWP 4 LVEDP 9 PaSat 71% AoSat 93% Mino CO/CI 5.8/3.5 Thermo CO/CI 4.3/2.5 she is awake alert oriented x3 she is in no acute distress. HEENT: 2+ carotid obstruction no evidence of carotid bruits jugular venous pressure appeared normal her hearing was normal Lungs: Clear to auscultation bilaterally no rales rhonchi or wheezing Heart regular rate and rhythm no appreciable murmurs rubs or gallops Extremities no clubbing cyanosis or edema, 2+ right radial pulse and her right hand is warm to touch Psychiatric: Her affect appeared appropriate Impressions: 1. Asthma exacerbation 2. Progressive shortness of breath and chest tightness with activity with a normal outpatient echocardiogram 3. History of a GI bleed for 2019 secondary to Xarelto and peptic ulcer disease with no recurrence 4. Possible outpatient pericarditis 5. 9 mm lesion in her breast awaiting mammography In reviewing her cardiac catheterization with her there is no evidence of significant epicardial coronary artery disease, there is no evidence of elevated right heart pressures, and her cardiac output and cardiac index are normal. This would suggest all of her symptoms are pulmonary. I did discuss this with her in detail. I also discussed this with the hospitalist service. 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 Additionally she should not submerge her right wrist in water for the next 3 days either. Her colchicine can be discontinued at this point. I again discussed with her avoiding potential triggers such as her pets at home that are given make her underlying lung disease worse. Additionally she may benefit from seeing someone who specializes in occupational lung disease at [facility] such as Kaci Velazquez.
--- NOTE | 2018-09-06 10:54 | Discharge Summary ---
Date of Service September 06, 2018 Admission HPI Per Admitting Provider 53 y/o F Hx COPD, HTN, gout, GERD, PE, PUD/GI bleed while on Xarelto 06/2018. Presents with persistent SOB. She had visited an ER 2 days prior with similar complaints. She denies CP a productive cough or fevers. Initial labs are unremarkable. A CTA was obtained and is negative for PE. The pt did not display hypoxia or wheezing although her air movement was poor on exam. She has been treated twice in the outpt setting and has failed treatment. She also tends to decompensate quickly. She will therefore be assigned to observation for IV steroids and scheduled nebs. Admission Exam Per Admitting Provider General: AAO x 3, no distress ENT: No erythema or exudates, no thrush Eyes: [place], EOMI Head and neck: Normocephalic, atraumatic, No JVD, neck is supple. Chest/heart: Nontender, S1,2, RRR, no murmurs, no gallops Lungs: CTAB, no wheezing or crackles - air movement is compromised Abdomen: Nontender, nondistended, BS+ Neuro: AAO x 3, speech is clear, no unilateral weakness or loss of sensation, coordination intact Musculoskeletal: No joint inflammation, muscle tenderness, FROM Skin: No acute rashes or ulcers Extremities: No clubbing, cyanosis, edema Principal Diagnosis Asthma/COPD Exacerbation Discharge Exam General: Resting comfortably in no apparent distress HEENT: NC/AT; PERRLA with EOMI; [place] conjunctiva, MMM. No erythema of posterior pharynx Neck: Supple and nontender Cardiac: RRR Lungs: CTA bilaterally; No rhonchi, wheezing, or rales Abdomen: Bowel normoactive X 4; Nontender to palpation Extremities: Warm. No edema present Neuro: No focal weakness Skin: No rash Discharge Data Allergies Allergy/AdvReac Type Severity Reaction Status Date / Time cephalexin AdvReac Unknown nausea Verified 09/01/18 11:56 morphine AdvReac Unknown nausea Verified 09/01/18 11:56 Consultations 09/01/18 14:11 ED Decision to Admit Stat 09/02/18 10:33 Consult Pulmonology Routine 09/04/18 09:45 Consult Cardiology Routine 09/05/18 08:57 Consult Cardiac Catheterization Routine Procedures Performed Operation Date: 09/05/18 13:00 Actual Procedures p Cath, Right and Left Heart - Parker Pavon MD s Cineradiography w/Routine Exam - Parker Pavon MD Ordered Studies 09/01/18 11:03 CT angio chest PE protocol Stat 09/05/18 13:05 CL Cath Imgs for PACS use only Stat Hospital Course (1) Asthma exacerbation: Failed outpt treatment; pt stable at rest but has SOB, chest tightness with exertion (very minimal improvement over last 24 hours) CT PE was negative. Pulm consulted, appreciate input. Solu-medrol 40 mg IV BID - tapered to Pred 60 mg daily on 09/06. Will complete outpatient taper. Duonebs QID scheduled, Arformoterol BID scheduled; Xopenex prn. Azithromycin for coverage of PNA (completed 5 day course) Has been undergoing workup outpatient with both pulm and allergy. Her IgG was low and there is concern for hypogammaglobulinemia causing some of her problems such as frequent infections and ineffectiveness of vaccines. History of pericarditis and emboli -- may want to consider referral to rheumatology outpatient. D/c home Colchicine as pericarditis is resolved. (2) Left-sided chest pain: Unclear if pain is related to pulmonary source vs. cardiac. EKG was negative; Trop negative x 3. Cardiology consulted, appreciate input. Cardiac cath was negative on 09/05/18. Treatment for asthma exacerbation as noted above. (3) COPD (chronic obstructive pulmonary disease): Acute asthma exacerbation as noted above. (4) Mass: Indeterminate 9 mm mass of the inferolateral quadrant left breast. Correlate with mammogram. Will need outpatient follow up. (5) Hypertension: Continued home Diltiazem as prescribed. (6) Pericarditis: Will d/c home Colchicine as pericarditis is resolved. (7) Pulmonary embolism: History of PE; CT was negative during this admission. Previously on Xarelto therapy -- d/c'ed during previous admission in June due to PUD/GI bleed. (8) Peptic ulcer disease with hemorrhage: Admitted in June 2018 with GI bleed. EGD showed esophageal candidiasis, non bleeding gastric ulcers with no active bleeding. PPI BID; also completed carafate course. H/H remained stable during this admission. (9) DVT prophylaxis: Heparin subQ. Pt. was medically stable for discharge on 09/06/18. Total Time Total Time Spent Total Time Spent (In Minutes): >30 minutes Total Time Includes: Examination of the Patient, Discharge Planning, Medication Reconciliation, Communication With Other Providers and Other Discharge Plan Discharge Items Patient Disposition: Home - Self-Care Reason For Visit: COPD EXACERBATION Discharge Diagnosis: Asthma/COPD Exacerbation Condition: Good Discharge Goals: Decrease discomfort, Improve disease control, Improve function, Increase independence and Prevent disease Activity: As commented below Exercise/Sports: Gradually increase as tolerated Non-emergency contact: Primary Care Provider Call non-emergency contact if: you have any medication questions, your symptoms worsen and you have a fever Follow-up/Referrals: Alma Rosa Sorenson PA-C [Physician Lower In Supervisor] - 09/12/18 1:00 pm (A follow up appt. has been made for you with Alma Rosa Sorenson PA-C on September 12 at 1:00pm. (Carlito Lau did not have any availabilty until late September).) Narayan Diaz Jr, MD [Primary Care Provider] - 09/13/18 10:00 am (A follow up appt. has been made for you with PCP Dr. Diaz for September 13 at 10:00am. ) Diet: Regular Addtl Provider Instructions: 1. Asthma Exacerbation * Continue steroid taper as follows: - Prednisone 60 mg x 2 days (09/07 and 09/08) - Prednisone 50 mg x 1 day (09/09) - Prednisone 40 mg x 1 day (09/10) - Prednisone 30 mg x 1 day (09/11) - Prednisone 20 mg x 1 day (09/12) - Prednisone 10 mg x 1 day (09/13) * Continue Duonebs scheduled four times daily at home with albuterol inhaler every 6 hours as needed for shortness of breath. * Continue Spiriva inhaler as prescribed. * Please follow up with pulmonology as scheduled on 09/12/18. 2. Chest Pain * Cardiac catheterization was negative during this admission. * Please follow up with your primary care provider as scheduled. * Cardiac cath instructions as noted below; you may return to work on Tuesday09/11/18. Work excuse was provided at discharge. 3. Breast Mass * Please follow up with your shade hanger to discuss obtaining mammogram. 4. Prescription for new medication (Prednisone taper) was sent to your pharmacy. ACTIVITY RECOMMENDATIONS: Excess manipulation of the wrist should be avoided for the next 24-48 hours. * No lifting over 2 pounds (approximately a 1/2 gallon of milk) with the utilized arm for 24 hours. * No strenuous activity such as bowling or tennis for 3 days. * Keep the site of the procedure covered with a bandage for 24 hours. *You may shower the day after the procedure. Do not take a tub bath or submerge the puncture site in water for the next 3 days. *Do not operate any motorized equipment for 3 days. SPECIAL CARE INSTRUCTIONS: The site may be slightly bruised and sore following your procedure. Should any of the following occur, contact the Dr. who performed your procedure. 1. Redness/inflammation, swelling, chills, or fever, or colored drainage at procedure site within 3-7 days after your procedure. 2. Coldness, discoloration, ongoing numbness, severe pain, or swelling. Expect mild tingling of hand and tenderness at the puncture site for up to three days. If this persists beyond three days, or other symptoms develop, notify the Dr. who performed your procedure. BLEEDING: If the procedure site on your wrist begins to bleed, do not panic 1. Place 1 or 2 fingers firmly just slightly above the insertion site to stop the bleeding. You may be able to feel your pulse as you hold pressure. 2. Lift your finger after 5 minutes to see if the bleeding has stopped. 3. Once the bleeding has stopped, gently wipe the wrist area clean with a bandage. * If the bleeding from your wrist does not stop after 10 minutes, or if there is a large amount of bleeding or spurting, call 911 (do not drive yourself to the hospital). SKIN IRRITATION: * You may experience some redness and/or swelling in the area where radiation was administered. If any skin irritation occurs, please contact your family physician. FOLLOW UP VISIT: Keep any scheduled doctor appointments. Prescriptions: New prednisone 20 mg Tablet 60 mg PO DAILY Qty: 14 RF: 0 Continued albuterol sulfate [ProAir HFA] 90 mcg/actuation Hfa Aerosol Inhaler 2 puff Inhalation BID PRN (Reason: Shortness Of Breath Or Wheezing) Qty: 0 RF: 0 levalbuterol tartrate [Xopenex HFA] 45 mcg/actuation Hfa Aerosol Inhaler 2 puff Inhalation Q4 PRN (Reason: Shortness Of Breath Or Wheezing) Qty: 0 RF: 0 ipratropium-albuterol 0.5 mg-3 mg(2.5 mg base)/3 mL Solution For Nebulization 3 ml INHALATION QID PRN (Reason: Shortness Of Breath Or Wheezing) Qty: 0 RF: 0 diltiazem HCl 120 mg Capsule,Extended Release 24 Hr 120 mg PO DAILY RF: 0 pantoprazole 40 mg Tablet,Delayed Release (Dr/Ec) 40 mg PO BID Qty: 60 RF: 4 Spiriva Respimat 2.5 mcg/actuation mist 2 puff inhalation DAILY RF: 0 Discontinued prednisone 10 mg PO QAM RF: 0 colchicine 0.6 mg tablet 0.3 mg PO DAILY RF: 0 Stand-Alone Forms: [facility], Work/School Release (Inpt) Discharge Orders: Discharge Order (Routine); Ordered 09/06/18 Ordered By: Nicol Harmon Admission Data Admit Date/Time: 09/03/18 12:11 Attending Provider: Yaakov Judge Admit Provider: Graham Castro Primary Care Provider: Narayan Diaz Jr Other Providers: Graham Castro ; Cade Blas ; Parker Randolph Service: Medical Other Interventions: Discharge Summary Assessment (RN) Last Done: 09/06/18 13:44 Pending Studies at Discharge: No DC Date/Time DO NOT enter until pt leaves facility: 09/06/18 14:23 Supervising Physician Co-Signing Physician Notes Attending D/C note and attestation - Pt seen/examined, chart reviewed, care plan d/w PA Nicol Harmon. I agree w/ the keenan components of her documentation. 53yo female with history of asthma who presented with asthma exacerbation. Treated in customary fashion with IV steroids and other supportive care. Also had chest pain that was evaluated by cardiology. Troponins were negative but it was ultimately felt patient should have heart cath. Cath was negative for CAD. Right heart cath was negative for pulmonary HTN. She will complete a steroid taper after discharge. She will also need follow-up mammogram due to left sided breast nodule seen incidentally on CT chest. exam - gen - NAD heart - RRR, s1, s2 lungs - CTA b/l abd - soft NT ND BS+ ext - no edema Yaakov Judge MD
== END 2018-09-06 14:23 | disposition home or self-care (01) | DRG 192 ==
LOC: 2W 10:48 → ED 10:48 → SUATTDRO 16:24 → 2W 18:20 → SUATTDRO 09-03 12:11 → 2E 09-05 14:44
DX: N63.0 Unspecified lump in unspecified breast; M10.9 Gout, unspecified; I34.1 Nonrheumatic mitral (valve) prolapse; R07.89 Other chest pain; Z80.1 Family history of malignant neoplasm of trachea, bronchus and lung; Z87.891 Personal history of nicotine dependence; J44.1 Chronic obstructive pulmonary disease with (acute) exacerbation; I10 Essential (primary) hypertension; Z86.711 Personal history of pulmonary embolism; K27.9 Peptic ulcer, site unspecified, unspecified as acute or chronic, without hemorrhage or perforation